=== PATIENT | male | born 1935 | race Caucasian/White ===

== ENCOUNTER 2017-10-22 08:36 | Inpatient (IN) | payer OTHER ==
[~2017-10-22] VITALS: Ht 190.5 cm; Wt 79.6 kg
[2017-10-22] MEDS ORDERED: METOPROLOL SUCC50 M2 PO (08:52)
[2017-10-22] MEDS ORDERED: FUROSEMIDE40 M1 PO (08:52)
[2017-10-22] MEDS ORDERED: SPIRONOLACTONE50 M1 PO (08:52)
[2017-10-22] MEDS ORDERED: PANTOPRAZOLE SO40 M1 PO (08:52)
[2017-10-22] MEDS ORDERED: SIMVASTATIN20 M2 PO (08:52)
--- NOTE | 2017-10-22 08:52 | ED GENERAL ADULT ---
History of Present Illness General Chief Complaint: Low Back Pain/Injury Stated Complaint: BIBA FOR BACK PAIN Source: patient, family, old records Exam Limitations: no limitations, poor historian Allergies Coded Allergies: NO KNOWN ALLERGIES (NONE 10/22/17) Reconcile Medications Furosemide 40 MG TABLET 1 TAB PO DAILY CARDIAC (Reported) Latanoprost (Xalatan) 0.005 % DROPS 1 GTT OPH QPM OPTHALOMIC (Reported) Metoprolol Succinate 50 MG TAB.ER.24H 1 TAB PO DAILY HTN (Reported) Pantoprazole Sodium 40 MG TABLET.DR 1 TAB PO DAILY GERD (Reported) Simvastatin (Simvastatin*) 20 MG TABLET 1 TAB PO QPM CHOLESTEROL (Reported) Spironolactone 50 MG TABLET 1 TAB PO DAILY U (Reported) Triage Note: BIBA FROM HOME FOR INITIAL CALL FOR LIFT ASSIST OUT OF BED. PT THEN C/O 08/03 LOW BACK/FLANK AREA PAIN AND MEDICATED WITH FENTANYL 50MCG BY EMS PAYABLE PROCESSOR. ARRIVES REPORTING SLIGHT IMPROVEMENT IN PAIN. LUNG SOUNDS CLEAR BILATERALLY BUT NOTABLE IRREGULAR APICAL RHYTHM ON ASSESSMENT. DENIES CHEST PAIN OR SOB. DENIES ABDOMINAL PAIN ON PALPATION. -N/V/D. APPEARS PALE. STATES HE NORMALLY AMBULATES AT HOME BY HOLDING ONTO LEIJA AND DOORWAYS. AAOX3 ON ARRIVAL Triage Nurses Notes Reviewed? yes Onset: Abrupt Duration: day(s):, constant Timing: recent history Injury Environment: home No Modifying Factors: none HPI: 82-year-old male comes into the emergency room for further evaluation of back pain. 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 Patient was so weak today that he couldn't get out of bed area he was having increased pain to his back. He has refused nursing care at home in the past. He denies any fever or chest pain shortness of breath vomiting. The family reports that he is usually able to just get up and moved to the chair and go to the bathroom but otherwise he does not do much at home. (Irving Valenzuela) Vital Signs & Intake/Output Vital Signs & Intake/Output Vital Signs Date Time Temp Pulse Resp B/P B/P Pulse O2 O2 Flow FiO2 Mean Ox Delivery Rate 10/22 1350 88 16 104/70 98 Room Air 10/22 1201 97.0 78 16 121/62 99 Room Air 10/22 1127 98.2 10/22 1040 97.0 87 16 119/64 96 Room Air 10/22 0850 96 Room Air 10/22 0843 98.0 112 16 104/57 96 Room Air (Mariangel SINGH,Ari Avery) Past History Travel History Traveled to [place] past 21 day No Medical History Any Pertinent Medical History? see below for history Neurological: NONE EENT: NONE Cardiovascular: AFIB, hypertension Respiratory: NONE Gastrointestinal: GERD Hepatic: LIVER CIRRHOSIS Renal: KIDNEY DYSFUNCTION Musculoskeletal: NONE Psychiatric: NONE Endocrine: NONE Blood Disorders: NONE Cancer(s): NONE Surgical History Surgical History: non-contributory Psychosocial History Who do you live with Spouse What is your primary language Ecuadorean Tobacco Use: Never used Family History Hx Contributory? No (Irving Valenzuela) Review of Systems Review of Systems Constitutional: Reports: see HPI. EENTM: Reports: no symptoms. Respiratory: Reports: no symptoms. Cardiovascular: Reports: no symptoms. GI: Reports: no symptoms. Genitourinary: Reports: no symptoms. Musculoskeletal: Reports: see HPI. Skin: Reports: no symptoms. Neurological/Psychological: Reports: no symptoms. Hematologic/Endocrine: Reports: no symptoms. Immunologic/Allergic: Reports: no symptoms. All Other Systems: Reviewed and Negative (Irving Valenzuela) Physical Exam Physical Exam General Appearance: alert, awake Head: atraumatic Eyes: Bilateral: normal appearance. Ears, Nose, Throat: hearing grossly normal Neck: full range of motion Respiratory: no respiratory distress Cardiovascular: irregularly irregular Gastrointestinal: soft, non-tender, distention Back: decreased range of motion Extremities: pedal edema Neurologic/Psych: awake, alert, oriented x 3 Skin: jaundice, mottled Core Measures ACS in differential dx? Yes CVA/TIA Diagnosis: No Sepsis Present: No Sepsis Focused Exam Completed? No (Irving Valenzuela) Progress Differential Diagnoses I considered the following diagnoses in my evaluation of the patient: Kidney stone, hydronephrosis, muscle strain, compression fracture, Diagnostic Imaging: Viewed by Me: CT Scan. Discussed w/RAD: CT Scan. Radiology Impression: PATIENT: HANANE LEVY PRESENT AGE: 82 PATIENT ACCOUNT NO: [id number] : 37 LOCATION: [facility] ORDERING PHYSICIAN: Irving ANDERSEN SERVICE DATE: 10/22/17 EXAM TYPE: CAT - CT ABD & PELVIS W/O IV CONTRAS EXAMINATION: CT ABDOMEN AND PELVIS WITHOUT CONTRAST CLINICAL INFORMATION: Back pain. Cirrhosis. COMPARISON: Ultrasound guided paracentesis from 08/12/2017, CT of the abdomen and pelvis from 2013 TECHNIQUE: Multidetector volumetric imaging was performed from the superior aspect of the liver through the pubic symphysis. Sagittal and coronal reformatted images were obtained on the technologist's workstation. DLP: 1098 mGy-cm FINDINGS: LUNG BASES: There are fibrotic changes in the lung bases peripherally. No consolidation. There is coronary calcification. The heart size appears normal. No pericardial effusion. LIVER, GALLBLADDER, AND BILIARY TREE: The liver is shrunken and nodular with some hypertrophy of the caudate lobe. This is substantially progressive from 2013. No intrahepatic biliary ductal dilatation. No obvious hepatic mass on these noncontrast images. The gallbladder is unremarkable with no evidence of radiopaque gallstones. There is a large amount of ascites throughout the abdomen and pelvis measuring between 15 and 30 Hounsfield units. PANCREAS: Unremarkable. SPLEEN: Unremarkable. ADRENAL GLANDS: Unremarkable. KIDNEYS AND URETERS: The kidneys are normal in size, shape, and attenuation. No hydronephrosis, hydroureter, or calculi seen. No perinephric stranding. BLADDER: Unremarkable. GASTROINTESTINAL TRACT: There are no dilated loops of small or large bowel. There is a large left inguinal hernia, which contains fat as well as a portion of the proximal sigmoid colon. There appear to be few colonic diverticula none of which appear specifically inflamed. ABDOMINAL WALL: As above there is a large left inguinal hernia, the inferior extent of which is not within the imaged volume. There is a large volume of ascites extending into the hernia as well. LYMPH NODES: No definitive adenopathy is visualized. VASCULAR: The aorta is normal in caliber with moderate calcification. PELVIC VISCERA: Unremarkable. OSSEOUS STRUCTURES: No compression deformities. There is multilevel lumbar spondylosis most notable in the lower lumbar region with a mild dextroconvex scoliosis there are 5 nonrib-bearing lumbar type vertebral bodies. No paraspinal soft tissue abnormalities. No evidence of retroperitoneal hematoma. IMPRESSION: There is a large volume of intra-abdominal and intrapelvic ascites, extending into a sizable left inguinal hernia; the hernia also contains a loop of nondistended sigmoid colon. The liver is shrunken and nodular compatible with the history of cirrhosis. No ductal dilatation. DICTATED BY: Keaton Hernandez MD DATE/TIME DICTATED:10/22/171099 OPERATOR [employer]:MIREYA DATE/TIME TRANSCRIBED:10/22/171099 CONFIDENTIAL, DO NOT COPY WITHOUT APPROPRIATE AUTHORIZATION. <Electronically signed in Other Vendor System> SIGNED BY: Keaton Hernandez MD 10/22/17 1117, PATIENT: HANANE LEVY PRESENT AGE: 82 PATIENT ACCOUNT NO: [id number] : 37 LOCATION: [facility] ORDERING PHYSICIAN: Irving ANDERSEN SERVICE DATE: 10/22/17 EXAM TYPE: RAD - XRY-PORTABLE CHEST XRAY EXAMINATION: XR PORTABLE CHEST CLINICAL INFORMATION: Weakness, elevated white blood cell count COMPARISON: Chest CT 07/21/2017 TECHNIQUE: Portable frontal view of the chest was obtained. FINDINGS: Markedly limited evaluation due to body habitus, lordotic positioning and hypoinflation. Diffusely coarsened interstitial lung markings. No definite focal consolidation, pleural effusion or pneumothorax. Heart size is likely within normal limits. Chronic right clavicular fracture with cerclage wires. No acute osseous abnormality. IMPRESSION: 1. No evidence of acute pulmonary process on this limited examination. 2. Chronic appearing changes of the lungs, better described on the recent chest CT from 07/21/2017 suggesting chronic lung disease. DICTATED BY: Cristiana Schofield MD DATE/TIME DICTATED :10/22/171221 OPERATOR [employer]:MIREYA DATE/TIME TRANSCRIBED:10/22/171221 CONFIDENTIAL, DO NOT COPY WITHOUT APPROPRIATE AUTHORIZATION. < Electronically signed in Other Vendor System> SIGNED BY: Cristiana Schofield MD 1228 Initial ED EKG: rate (94), AFIB (Irving Valenzuela) Plan of Care: Orders Procedure Date/time Status Regular Diet 10/22 D Active Misc Message 10/22 1420 Active ED Holding Orders 10/22 1420 Active Admit to inpatient 10/22 1420 Active Vital Signs 10/22 1420 Active Code Status 10/22 1420 Active Patient Data 10/22 1410 Active Add-on Test (ER Only) 10/22 1207 Active LACTIC ACID 10/22 1206 Complete CULTURE,BODY FLUID 10/22 1149 Active BODY FLUID TOTAL PROTEIN 10/22 1149 Complete BODY FLUID CELL COUNT 10/22 1149 Complete BODY FLUID ALBUMIN 10/22 1149 Complete US-PARACENTESIS 10/22 1135 Active BLOOD CULTURE 10/22 1002 Active DIRECT BILIRUBIN 10/22 0917 Complete AMMONIA LEVEL 10/22 0917 Complete PARTIAL THROMBOPLASTIN TIME 10/22 0906 Complete PROTHROMBIN TIME 10/22 0906 Complete LACTIC ACID 10/22 0906 Complete Intake & Output 10/22 0849 Active TROPONIN LEVEL 10/22 0848 Complete COMPREHENSIVE METABOLIC PANEL 10/22 0848 Complete CBC WITHOUT DIFFERENTIAL 10/22 0848 Complete EKG 10/22 0839 Active Current Medications Sig/Quinton Start time Last Medication Dose Stop Time Status Admin Sodium Chloride 1,000 ML BOLUS ONE 10/22 1445 AC (Normal Saline 0.9%) 10/22 1544 Laboratory Tests 10/22/17 1402: Lactic Acid 3.1 H 10/22/17 1200: Lymphocytes 14, % Normal PMNs 1, Misc Hematology Test 85, Fluid WBC 22 H, Fld Total RBCs Counted 11 H 10/22/17 1149: Fluid Total Protein < 2.0, Fluid Albumin < 1.0 10/22/17 0930: Lactic Acid 3.6 H 10/22/17 0917: Anion Gap 11, Estimated GFR 36 L, BUN/Creatinine Ratio 25.6 H, Glucose 147 H, Calcium 9.1, Total Bilirubin 2.8 H, Direct Bilirubin 0.8 H, AST 45, ALT 29, Alkaline Phosphatase 114, Ammonia 14, Troponin I < 0.01, Total Protein 6.4, Albumin 2.7 L, Globulin 3.7, Albumin/Globulin Ratio 0.7 L, PT 13.9 H, INR 1.33 H, APTT 37, CBC w Diff NO MAN DIFF REQ, RBC 3.29 L, MCV 94.2 H, MCH 31.6 H, RDW 15.5 H, MPV 8.7, Gran % 82.6 H, Lymphocytes % 5.9 L, Monocytes % 10.4 H, Eosinophils % 0.1, Basophils % 1.0, Absolute Granulocytes 10.8 H, Absolute Lymphocytes 0.8 L, Absolute Monocytes 1.4 H, Absolute Eosinophils 0, Absolute Basophils 0.1, PUBS MCHC 33.5 10/22/17 0848: Urine Color Cancelled, Urine Clarity Cancelled, Urine pH Cancelled, Ur Specific [place] Cancelled, Urine Protein Cancelled, Urine Ketones Cancelled, Urine Nitrite Cancelled, Urine Bilirubin Cancelled, Urine Urobilinogen Cancelled, Ur Leukocyte Esterase Cancelled, Ur Microscopic Cancelled, Urine Hemoglobin Cancelled, Urine Glucose Cancelled Microbiology 10/22 1149 BODY FLUID: Body Fluid Culture - RECD 10/22 1149 BODY FLUID: Gram Stain - RECD 10/22 1032 BLOOD: Blood Culture - RECD 10/22 1029 BLOOD: Blood Culture - RECD (Mariangel SINGH,Ari Avery) Departure Departure Disposition: STILL A PATIENT Condition: Stable Clinical Impression Primary Impression: Lactic acidosis Secondary Impressions: Ascites, Intractable pain, Leukocytosis, Multifactorial gait disorder Referrals: Satnam SINGH,Donnell Sandhu (PCP/Family) Departure Forms: Customer Survey General Discharge Information Admission Note Spoke With: Mallory SINGH,Cirilo Documentation of Exam: Documentation of any treatments & extenuating circumstances including Concerns Regarding Discharge (functional status, medication knowledge or non-compliance, living conditions, etc.) that warrant an admission rather than observation: Patient will require IV fluids. IV antibiotics. GI consultation. Physical therapy consultation. Case management consultation. Medically not safe for discharge. High risk. IV pain control. Repeat labs. (Irving Valenzuela) PA/PACKAGE DRIER Co-Sign Statement Statement: ED Attending supervision documentation- [x] I saw and evaluated the patient. I have also reviewed all the pertinent lab results and diagnostic results. I agree with the findings and the plan of care as documented in the PA's/PACKAGE DRIER's documentation. Patient presents for evaluation based on a concern of EMS. EMS was contacted for a lift assist but they felt that the patient required medical evaluation. Other than the complaint of chronic back and arthritis related pain, the patient has no specific complaint. Physical examination reveals jaundice and distended abdomen consistent with his history of cirrhosis. [] I have reviewed the ED Record and agree with the PA's/PACKAGE DRIER's documentation. [] Additions or exceptions (if any) to the PAs/PACKAGE DRIER's note and plan are summarized below: [] (Mariangel SINGH,Ari Avery) Critical Care Note Critical Care Note Critical Care Time: non-applicable (Irving Valenzuela)
[2017-10-22] MEDS ORDERED: XALATAN2.5 ML OPH (08:53)
[2017-10-22 09:27] LABS: ABSOLUTE BASOPHIL COUNT 0.1 /CUMM (0.0-0.2); ABSOLUTE EOSINOPHIL COUNT 0 /CUMM (0.0-0.7); ABSOLUTE GRANULOCYTE CT 10.8 /CUMM (1.4-6.5); ABSOLUTE LYMPH COUNT 0.8 /CUMM (1.2-3.4); ABSOLUTE MONOCYTE COUNT 1.4 /CUMM (0.10-0.60); EOSINOPHIL % 0.1 % (0-5); GRANULOCYTE % 82.6 % (42.2-75.2); MEAN CORPUSCULAR HGB 31.6 PG (27.0-31.0); MEAN CORPUSCULAR HGB CONC 33.5 G/DL (33.0-37.0); MEAN CORPUSCULAR VOLUME 94.2 FL (80.0-94.0); MEAN PLATELET VOLUME 8.7 FL (7.4-10.4); PLATELET COUNT 170 /CUMM (130-400); RBC DISTRIBUTION WIDTH 15.5 % (11.5-14.5); RED BLOOD CELL CT 3.29 /CUMM (4.70-6.10); WHITE BLOOD CELL COUNT 13.1 /CUMM (4.8-10.8)
[2017-10-22 09:37] LABS: PT 13.9 SEC (9.4-12.5); PTT 37 SEC (25-37)
--- NOTE | 2017-10-22 11:17 | CT SCAN REPORT ---
EXAMINATION: CT ABDOMEN AND PELVIS WITHOUT CONTRAST CLINICAL INFORMATION: Back pain. Cirrhosis. COMPARISON: Ultrasound guided paracentesis from 08/12/2017, CT of the abdomen and pelvis from 07/25/2014 TECHNIQUE: Multidetector volumetric imaging was performed from the superior aspect of the liver through the pubic symphysis. Sagittal and coronal reformatted images were obtained on the technologist's workstation. DLP: 1098 mGy-cm FINDINGS: LUNG BASES: There are fibrotic changes in the lung bases peripherally. No consolidation. There is coronary calcification. The heart size appears normal. No pericardial effusion. LIVER, GALLBLADDER, AND BILIARY TREE: The liver is shrunken and nodular with some hypertrophy of the caudate lobe. This is substantially progressive from 2013. No intrahepatic biliary ductal dilatation. No obvious hepatic mass on these noncontrast images. The gallbladder is unremarkable with no evidence of radiopaque gallstones. There is a large amount of ascites throughout the abdomen and pelvis measuring between 15 and 30 Hounsfield units. PANCREAS: Unremarkable. SPLEEN: Unremarkable. ADRENAL GLANDS: Unremarkable. KIDNEYS AND URETERS: The kidneys are normal in size, shape, and attenuation. No hydronephrosis, hydroureter, or calculi seen. No perinephric stranding. BLADDER: Unremarkable. GASTROINTESTINAL TRACT: There are no dilated loops of small or large bowel. There is a large left inguinal hernia, which contains fat as well as a portion of the proximal sigmoid colon. There appear to be few colonic diverticula none of which appear specifically inflamed. ABDOMINAL WALL: As above there is a large left inguinal hernia, the inferior extent of which is not within the imaged volume. There is a large volume of ascites extending into the hernia as well. LYMPH NODES: No definitive adenopathy is visualized. VASCULAR: The aorta is normal in caliber with moderate calcification. PELVIC VISCERA: Unremarkable. OSSEOUS STRUCTURES: No compression deformities. There is multilevel lumbar spondylosis most notable in the lower lumbar region with a mild dextroconvex scoliosis there are 5 nonrib-bearing lumbar type vertebral bodies. No paraspinal soft tissue abnormalities. No evidence of retroperitoneal hematoma. IMPRESSION: There is a large volume of intra-abdominal and intrapelvic ascites, extending into a sizable left inguinal hernia; the hernia also contains a loop of nondistended sigmoid colon. The liver is shrunken and nodular compatible with the history of cirrhosis. No ductal dilatation.
--- NOTE | 2017-10-22 12:28 | RADIOLOGY REPORT ---
EXAMINATION: XR PORTABLE CHEST CLINICAL INFORMATION: Weakness, elevated white blood cell count COMPARISON: Chest CT 07/21/2017 TECHNIQUE: Portable frontal view of the chest was obtained. FINDINGS: Markedly limited evaluation due to body habitus, lordotic positioning and hypoinflation. Diffusely coarsened interstitial lung markings. No definite focal consolidation, pleural effusion or pneumothorax. Heart size is likely within normal limits. Chronic right clavicular fracture with cerclage wires. No acute osseous abnormality. IMPRESSION: 1. No evidence of acute pulmonary process on this limited examination. 2. Chronic appearing changes of the lungs, better described on the recent chest CT from 07/21/2017 suggesting chronic lung disease.
--- NOTE | 2017-10-22 15:14 | Admission Certification ---
Admission Certification Certification Statement - As attending physician, I certify that at the time of - admission, based on clinical presentation, severity of - symptoms, need for further diagnostic testing and - therapeutic interventions, and risk of adverse outcomes - without in-hospital treatment, in my clinical assessment, - this patient requires an acute hospital stay for a minimum - of two nights or longer. I have also considered psychsocial - factors such as support system, advanced age, financial - issues, cognitive issues, and failed out-patient treatments, - past re-admission history, safety of patient, and lack of - compliance as applicable. Specific rationale supporting this admission is: Cirrhosis with jaundice status post large-volume paracentesis.
--- NOTE | 2017-10-22 15:15 | PN- Att Addend ---
Attending Addendum Attending Brief Note 82-year-old male multiple medical problems including prostate cancer status post treatment in the past, A. fib he was on Xarelto no longer on it, recent endoscopy done by Dr. Berger which was negative for varices but found a duodenal ulcer and with cirrhosis presumably secondary to alcohol with a history of ascites and ? CKD with a GFR of 35. He also has chronic back pain and he is here today that appears to be decompensated cirrhosis and a lactic acidosis. He had a therapeutic tap of questionable 7.5 L done in IR today. The SAAG is greater than 1.1 suggestive of portal hypertension and with only 22 white cells, negative for SBP. Hold his diuretics, continue his metoprolol and Protonix. We 'll give him Alps for DVT prophylaxis. We'll give him IV albumin and replace it for every liter taken out on the therapeutic tap. We'll call a formal GI evaluation and trend his lactate closely. Right now I have no obvious source of the lactate of 3.6 which is already coming down to 3.1 and a white count of 13, 000. There is no pneumonia on chest x-ray and no SBP, will get a UA and follow closely.
--- NOTE | 2017-10-22 15:42 | History & Physical ---
Yohan Crespo MD 10/22/17 1541: General Information and HPI MD Statement: I have seen and personally examined HANANE LEVY and documented this H&P. The patient is a 82 year old M who presented with a patient stated chief complaint of back pain. Source of Information: patient, family, old records Exam Limitations: poor historian History of Present Illness: 82 yo man with a PMHx. of HTN ,HLD, borderline DM, paroxysmal A.fib not on AC 2/ 2 GI bleed, Hx. of prostate cancer, alcohol related cirrhosis with recent decompensation 2 months ago after presenting with ascites and undergoing paracentesis in the GI office presented to the emergency room with a complaints of severe back pain, weakness, and inability to get out of bed. The family reports that the patient has substantially declined over the past few months when this diagnosis was first discovered with ascites. He has had significant weight loss, anorexia, and weakness. He has been following with Dr. Ramirez in the office. Patient also report nausea and anorexia with an associated 40 pound weight loss over the last several months. The patient has reportedly vomited multiple times but only nonbilious nonbloody emesis. He uses a walker or cane at his baseline because of unsteady gait but often gets around the house leaning on objects because he prefers to not to use the walking assist devices but has. He report recent lower BRBPR noticed on the toilet paper and bowl without any pain or blood mixed in the stool. He denies hematemesis or melena. The family reports at time his skin looks jaudiced at other times pale. He is having significant non radicular back pain described as aching and not exacerbated by movement or palpation. He takes [id number] mg of tylenol for this pain without improvement. He denied any chest pain, dyspnea, fever, chills, palpitations, dizziness, urine has been darker but no change in bowel habits. In the ED, an abdomen/pelvis CT was performed and showed significant intraabdominal ascites, a large volume paracentesis was done and 7.5 L of clear yellow fluid was aspirated. Ceftriaxone was administered after the paracentesis and the patient was admitted to general medicine. Allergies/Medications Allergies: Coded Allergies: NO KNOWN ALLERGIES (NONE 10/22/17) Home Med list Furosemide 40 MG TABLET 1 TAB PO DAILY CARDIAC (Reported) Latanoprost (Xalatan) 0.005 % DROPS 1 GTT OPH QPM OPTHALOMIC (Reported) Metoprolol Succinate 50 MG TAB.ER.24H 1 TAB PO DAILY HTN (Reported) Pantoprazole Sodium 40 MG TABLET.DR 1 TAB PO DAILY GERD (Reported) Simvastatin (Simvastatin*) 20 MG TABLET 1 TAB PO QPM CHOLESTEROL (Reported) Spironolactone 50 MG TABLET 1 TAB PO DAILY U (Reported) Compliance With Home Meds: FAIR Past History Travel History Traveled to [place] past 21 day No Medical History Neurological: NONE EENT: NONE Cardiovascular: AFIB, hypertension Respiratory: NONE Gastrointestinal: GERD Hepatic: LIVER CIRRHOSIS Renal: KIDNEY DYSFUNCTION Musculoskeletal: NONE Psychiatric: NONE Endocrine: NONE Blood Disorders: NONE Cancer(s): NONE Surgical History Surgical History: non-contributory Review of Systems Review of Systems Constitutional: Reports: see HPI. Exam & Diagnostic Data Last 24 Hrs of Vital Signs/I&O Vital Signs Date Time Temp Pulse Resp B/P B/P Pulse O2 O2 Flow FiO2 Mean Ox Delivery Rate 10/22 2247 98.2 100 19 112/58 100 Room Air 10/22 2116 1125/58 10/22 2035 79 110/68 10/22 1845 98.0 108 19 98/60 100 Room Air 10/22 1637 97.5 88 20 102/62 99 Room Air 10/22 1626 98.3 92 20 109/53 98 Room Air 10/22 1350 88 16 104/70 98 Room Air 10/22 1201 97.0 78 16 121/62 99 Room Air 10/22 1127 98.2 10/22 1040 97.0 87 16 119/64 96 Room Air 10/22 0850 96 Room Air 10/22 0843 98.0 112 16 104/57 96 Room Air Intake & Output 10/23 0800 10/23 0000 10/22 1600 Intake Total 200 Output Total 100 50 Balance -100 150 Intake, IV 200 Output, Urine 100 50 Patient 79.634 kg 95.254 kg Weight Weight Bed scale Estimated Measurement Method Physical Exam General Appearance Alert, Oriented X3, Cooperative, No Acute Distress Cardiovascular Regular Rate, Normal S1, Normal S2, No Murmurs Lungs Clear to Auscultation, Normal Air Movement Abdomen Normal Bowel Sounds, Soft, No Tenderness, No Masses, distended but soft large ascites Extremities No Clubbing, No Cyanosis, No Edema, Normal Pulses Last 24 Hrs of Labs/Natan: Laboratory Tests 10/22/17 2100: Urine Color ORANG H, Urine Clarity CLDY H, Urine pH 5.0, Ur Specific [place] 1.025, Urine Protein 30 H, Urine Ketones TRACE H, Urine Nitrite POS H, Urine Bilirubin POS@ICTO H, Urine Urobilinogen 1.0, Ur Leukocyte Esterase NEG, Ur Microscopic SEDIMENT EXAMINED, Urine RBC 1-3, Urine WBC 3-5 H, Urine Bacteria FEW H, Hyaline Casts 15-25 H, Urine Hemoglobin NEG, Urine Glucose NEG 10/22/17 1903: Lactic Acid 2.3 H 10/22/17 1402: Lactic Acid 3.1 H 10/22/17 1200: Lymphocytes 14, % Normal PMNs 1, Misc Hematology Test 85, Fluid WBC 22 H, Fld Total RBCs Counted 11 H 10/22/17 1149: Fluid Total Protein < 2.0, Fluid Albumin < 1.0 10/22/17 0930: Lactic Acid 3.6 H 10/22/17 0917: Anion Gap 11, Estimated GFR 36 L, BUN/Creatinine Ratio 25.6 H, Glucose 147 H, Calcium 9.1, Total Bilirubin 2.8 H, Direct Bilirubin 0.8 H, AST 45, ALT 29, Alkaline Phosphatase 114, Ammonia 14, Troponin I < 0.01, Total Protein 6.4, Albumin 2.7 L, Globulin 3.7, Albumin/Globulin Ratio 0.7 L, PT 13.9 H, INR 1.33 H, APTT 37, CBC w Diff NO MAN DIFF REQ, RBC 3.29 L, MCV 94.2 H, MCH 31.6 H, RDW 15.5 H, MPV 8.7, Gran % 82.6 H, Lymphocytes % 5.9 L, Monocytes % 10.4 H, Eosinophils % 0.1, Basophils % 1.0, Absolute Granulocytes 10.8 H, Absolute Lymphocytes 0.8 L, Absolute Monocytes 1.4 H, Absolute Eosinophils 0, Absolute Basophils 0.1, PUBS MCHC 33.5 10/22/17 0848: Urine Color Cancelled, Urine Clarity Cancelled, Urine pH Cancelled, Ur Specific [place] Cancelled, Urine Protein Cancelled, Urine Ketones Cancelled, Urine Nitrite Cancelled, Urine Bilirubin Cancelled, Urine Urobilinogen Cancelled, Ur Leukocyte Esterase Cancelled, Ur Microscopic Cancelled, Urine Hemoglobin Cancelled, Urine Glucose Cancelled Microbiology 10/22 1149 BODY FLUID: Body Fluid Culture - RES 10/22 1149 BODY FLUID: Gram Stain - RES 10/22 1032 BLOOD: Blood Culture - RECD 10/22 1029 BLOOD: Blood Culture - RECD Diagnostic Data CXR Results 1. No evidence of acute pulmonary process on this limited examination. 2. Chronic appearing changes of the lungs, better described on the recent chest CT from 07/21/2017 suggesting chronic lung disease. Other Results LUNG BASES: There are fibrotic changes in the lung bases peripherally. No consolidation. There is coronary calcification. The heart size appears normal. No pericardial effusion. LIVER, GALLBLADDER, AND BILIARY TREE: The liver is shrunken and nodular with some hypertrophy of the caudate lobe. This is substantially progressive from 2014. No intrahepatic biliary ductal dilatation. No obvious hepatic mass on these noncontrast images. The gallbladder is unremarkable with no evidence of radiopaque gallstones. There is a large amount of ascites throughout the abdomen and pelvis measuring between 15 and 30 Hounsfield units. Assessment/Plan Assessment: 82 yo man with a PMHx. of HTN ,HLD, borderline DM, paroxysmal A.fib not on AC 2/ 2 GI bleed, Hx. of prostate cancer, alcohol related cirrhosis with recent decompensation 2 months ago after presenting with ascites and undergoing paracentesis in the GI office presented to the emergency room with a complaints of severe back pain, weakness, and inability to get out of bed. Cirrhosis with ascites: Diagnostic and therapeutic paracentesis performed 7.5 L of fluid removed Ascitic fluid analysis not suggestive of spontaneous bacterial peritonitis Monitor off antibiotics Gastroenterology consultation 25% albumin Q8H Trend lactic acid Avoid NSAIDs, duodenal ulcer on EGD, negative for varices Limit tylenol Follow up GI recommendations History off rectal bleeding, radiation proctitis, and duodenoal ulcer Off anticoagulation for atrial fibrillation for the above reasons, increased stroke risk Last alcohol intake 07/25/17 JAIMIE: Continue to hold furosemide, ACEi, and spironolactone Consider nephrology consultation Trial of albumin Avoid NSAIDs, nephrotoxic agents Trend renal function Check urinalysis and urine electrolytes Atrial fibrillation: Continue metoprolol No anticoagulation Weakness: Physical therapy evaluation Heart healthy diet-2gram sodium restriction DVT ppx-lovenox 40mg subcutaneous daily DNR/DNI As Ranked By This Provider Problem List: 1. Cirrhosis 2. Ascites 3. Radiation proctitis 4. Afib 5. ARF (acute renal failure) 6. History of prostate cancer 7. Multifactorial gait disorder Core Measures/Misc (07/11) Acute Coronary Syndrome ACS Diagnosis: No Congestive Heart Failure Congestive Heart Failure Diagnosis No Cerebrovascular Accident CVA/TIA Diagnosis: No VTE (View Protocol) VTE Risk Factors Age>40 No Mechanical VTE Prophylaxis d/t N/A MechProphylax Ordered No VTE Pharm Prophylaxis d/t Medical Contraindication Sepsis (View protocol) Sepsis Present: No SerariddhimitziJefjef 10/22/17 2145: Resident Review Statement Resident Statement: examined this patient, discussed with compensation intern, agreed with compensation intern, discussed with family, reviewed EMR data (avail), discussed with nursing , reviewed images Other Findings: is an 82 yo man with a PMHx. of HTN ,HLD, borderline DM, paroxysmal A.fib not on AC 2/2 GI bleed, Hx. of prostate cancer Hx. of alcohol dependent and alcohol related cirrhosis with recent decompensation about 2 months ago s/p paracentesis at GI office presented to ED with a c/o sever back pain. Patient also report nausea and decrease PO intake over the last few months, he lost about 40Ib over about 6 months, he vomited multiple time clear fluid with no blood, he becomes more weak with difficulty to ambulate, he used a walker or a cane at his baseline 2/2 unsteady gait. He report recent lower GI blood with defecation, he denies any chest pain, SOB, fever, chills, dizziness and there is no change in urinary or bowel habits. His vitals was stable at ED, on examination he looks pale, with generalized icterus, he has tenderness on the lower back, no CVA tenderness, he has B/L LE +2 edema, his pulse is irregular. At ED abdomen/pelvis CT showed large volume intraabdominal ascites, paracentesis was done, 7.5 L of clear yellow fluid was aspirated, SAAG >1, MELD score: 19 -Will admit the patient to general medicine floor, will give 25% albumin (about 8g for every liter aspirated), his lactate is mildly elevated will give one bag of IV NS, please continue follow up lactate level till normalized. will hold diuretics, will continue Metoprolo, GI consult, will hold on antibiotic, doesn't meet the criteria for SBP, DVT ppx. ALPS, DNR/DNI Umm SINGH,Tierra 10/23/17 1414: Attending MD Review Statement Attending Statement Attending MD Statement: examined this patient, discuss w/resident/PA/TOILE[employer] PRODUCTS MOLDER, agreed w/resident/PA/TOILE[employer]ODU[employer] MOLDER, discussed with family, reviewed EMR data (avail), discussed with nursing, reviewed images Attending Assessment/Plan: See medical brief addendum note dated 10/22/17
--- NOTE | 2017-10-22 15:54 | ULTRASOUND REPORT ---
CLINICAL HISTORY: This patient is a 82 years old Male with ascites found on physical exam, who is referred to Interventional Radiology for ultrasound-guided paracentesis. PROCEDURE: Ultrasound-guided paracentesis. PHYSICIANS: Dr. Cristiana Schofield (attending). MEDICATIONS: 10 mL of 1% lidocaine SQ. COMPLICATIONS: None ESTIMATED BLOOD LOSS: <5 mL SPECIMENS: Ascites IMPLANT: None. SITE MARKING: As part of the preprocedure verification policy, a site marking procedure was initiated. Due to the nature the procedure, the insertion site could not be predetermined thus invoking the policy of exemption to site laterality and marking. Insertion site marking was performed in the procedure room in conjunction with imaging confirmation. PROCEDURE NOTE: Informed consent was obtained from the patient prior to the procedure. During this process, the procedure and potential alternatives were explained along with the intended outcome and benefits. The risks of the procedure, including the possibility of an unsuccessful procedure, as well as the risk of not doing the procedure, were discussed. The patient was given the opportunity to ask questions regarding the procedure and appeared competent to make decisions. A signed consent form documenting this discussion was placed in the medical record. A time-out procedure was performed. Appropriate preprocedure medical history and imaging studies were reviewed. The patient was brought to the ultrasound room and placed in the supine position. A time-out procedure was performed. Ultrasound images of the abdomen were obtained to localize a large collection of ascites. Images were permanently saved to the record. An area of the right lower quadrant was prepped and draped in the standard sterile fashion. All elements of maximal sterile barrier technique followed including use of cap, mask, sterile gown, sterile gloves, a sterile full body drape and hand hygiene. Also followed skin preparation with 2% chlorhexidine for cutaneous antisepsis, and sterile ultrasound preparation with sterile gel and probe cover when applicable. 10 mL of 1% lidocaine was used to obtain local anesthesia of the skin and deeper tissues. A standard small-bore needle was introduced to sample fluid and demonstrated a safe access route. There was no evidence of traversing adjacent organs or vascular structures. A 6-Fr [id number] closed needle/catheter system was utilized for access. 7.5 L of clear yellow fluid was aspirated before drainage ceased. The catheter was removed and sterile dressing applied. The patient tolerated the procedure well without evidence of complications. FINDINGS: Large simple abdominal ascites as detailed above. IMPRESSION: Successful ultrasound-guided therapeutic and diagnostic paracentesis. PLAN: The patient was stable after the procedure. The patient will be transferred back to the emergency room.
--- NOTE | 2017-10-22 18:08 | Cons- Gastroenterology ---
General Information and HPI Consulting Request Date of Consult: 10/22/17 Requested By: Tierra Salomon MD Reason for Consult: I was called by the hospitalist service to assess cirrhosis, ascites, and renal insufficiency, in a patient presenting with low back pain. Source of Information: patient, old records Exam Limitations: fair historian History of Present Illness: 82-year-old male, followed by Dr. Hay for primary care, Dr. Salomon for cardiology, Dr. Edson Garcia for RT, & Dr. Duron, for urology, with a history of hypertension, hyperlipidemia, borderline diabetic, glaucoma, ex-15 pack year cigarette smoker stopped 1989, and history of alcohol abuse, consisting of > 3 drinks of vodka & 7-Up daily. He previously drank more years ago. He claimed to have last drank EtOH 07/25/17. Cirrhosis became evident when he presented with ascites in 07/2017. 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 He developed paroxysmal atrial fibrillation since. He was put on Xarelto by cardiology 08/25/16 Two days later, the patient developed painless BRBPR after defecation of brown stool, with bright red blood on the toilet paper, without any spontaneous lower GI bleeding or melena. Xarelto was held by cardiology 09/02/16, after the rectal bleeding occurred. Please note, 07/06/14: prostate biopsy- prostate adenocarcinoma, Rosalia 7. The patient was treated with external-beam radiation for 45 courses, completed 11/14/14. There was a questionable history of hemorrhoids. The patient did have loose stool on Fenofibrate, which was stopped 08/25/16, and the loose stools resolved. He did not use any NSAIDs or aspirin. He had no neurologic complaints. Please note, the patient has a past history of duodenal ulcer. 06/14/08: CT scan of the abdomen and pelvis with contrast- questionable gastric outlet obstruction. 07/03/2008: EGD- large friable 2 cm2 duodenal ulcer in the bulb, without any clot or visible vessel, with scarring of the bulb, patent pylorus, no gastric outlet obstruction, & *HP-negative gastritis on biopsy. The patient had been maintained on Omeprazole since, but may not have been fully compliant with this. 09/11/08: Followup EGD plus baseline colonoscopy to the cecum- healed duodenal ulcer, tiny hiatal hernia, Z-line at 41 cm, patent pylorus, no gastric outlet obstruction; moderate pandiverticulosis coli, L > R, removal of 4 mm sessile polyp base of appendix, showing focal adenoma. The patient was non- compliant with a followup surveillance colonoscopy advised for 5 years later, namely 08/2013. The patient had never been transfused. 09/10/16: Colonoscopy to the TI with multiple biopsies and multiple polypectomies (done at different sites)- extensive pandiverticulosis coli, L > R , fairly extensive RT proctitis, with oozing telangiectasia's to 10 cm (direct biopsies deferred), and removal of 9 benign sessile polyps, ranging in size from 5 mm - 1 cm (7 TA & 2 hyperplastic). A follow-up colonoscopy was advised in 3 years (i.e.- 08/2019), assuming it is warranted then by the risk:benefit ratio, keeping in mind the patient's advanced age and numerous comorbidities. The patient was put on Canasa suppository 1 g Qhs post colonoscopy, which worked well, and the patient stopped it on his own 4 months later, as he was asymptomatic. *Having stated that, Xarelto was resumed by cardiology on 10/05/16 , but stopped by them 10/10/16, as the patient had recurrent rectal bleeding, despite the Canasa. 10/13/16: WBC 6.1, H/H 11.4/34.2, MCV 93.6, PLT 157. 11/05/16: K+ 4.3, Na 139, *BUN/Cr 16/0.9, GFR > 60. Anticoagulation therapy was currently on hold as per cardiology, regarding the rectal bleeding from his RT proctitis. The patient & his , Blossom, were aware that the risk of CVA off of anti-coagulation therapy has to be balanced with the risk of GI bleeding. I deferred to cardiology regarding other options of anticoagulation, such as the shorter acting Eliquis. If anticoagulation therapy was resumed, as the patient has had breakthrough rectal bleeding on Canasa suppositories when previously on Xarelto, other options could include local installation of formalin to treat the RT proctitis vs. mucosal stripping of the rectum, although the latter was a somewhat extreme measure. The patient's 07/03/08: duodenal ulcer was remote. *The patient was subsequently found to have a large recurrent DU via 10/12/17: EGD (see below), adding to the reasons not to resume A/C therapy. There were no varices or portal gastropathy then. Mr. Mark Anthony Hodges returned to the office 09/10/17, accompanied by his Blossom, previously here 03/12/17. He had numerous tests done since last here and was found to have cirrhosis, secondary to alcohol abuse. 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 He claimed he last drank EtOH "07/25/17." The patient saw Dr. Salomon 07/27/17 and was reported to be yellow, prompting the liver workup. 07/30/17: lipase 5, PT 12.6, INR 1.2, WBC 7.0, H/H 12.2/36.3, MCV 96.9, RDW 15.4 , PLT 194, glucose 138, BUN/Cr 33/1.29, GFR 52, Na 141, K 4.3, HCO3 24, AG 13, Ca 8.6, alb 2.9, glob 3.1, TBil 1.9, alk phos 130, AST 43, ALT 21, borderline T3RU 37, otherwise nl TFT with TSH 3.53, *MELD 13. : RUQ sono- Cirrhotic liver, no hepatoma, moderate to large ascites, CBD not seen, normal GB. 08/12/17: *Large volume tap by IR- 7.5L removed post 50g SPA, 29 RBC, 208 WBC, 1 % PMN (absolute # PMN = 2), *no SBP, BF prot < 2.0, BF alb < 1.0, high SAAG > 2.0, g stain , C&S- neg, cytology neg. 08/12/17: *Hep A Ab, Hep Bs Ag, Hep B core Ab, Hep C Ab- all neg; TRACEE- neg 1:40, AMA < 20, AFP 3.7, Fe 84, TIBC 233, Fe sat 36%, ferritin 305 *Lasix 40 mg daily had been prescribed PMD. *I added Aldactone 50 mg daily. He remained on Metopolol 50 mg daily, per cardiology. The cirrhosis was discussed with the patient and his , Blossom, in detail . This undoubtedly was from his alcohol abuse, which he allegedly stopped 07/25/17. Extensive serologies were negative. He was made aware that he needed periodic screening to rule out hepatoma. Because of his advanced age and recent alcohol abuse, he did not appear to be a candidate for liver transplant at this point. His last 07/30/17: MELD was relatively stable at 13. *At the patient's last GI OF of 09/10/17, I advised him to have an EGD to rule out varices and if present, would switch his Metoprolol to a non-selective beta paul. 10/08/17: random glu 119, *BUN/Cr 54/1.8, GFR 36 (*new), Na 141, K 4.5, HCO3 23, AG 13, Ca 9.1, alb 2.7, glob 4.0, TBil 2.3, DBil 1.0, alk phos 118, AST 47, ALT 23, Hep Bs Ab- neg (*not immune) *Lasix 40 mg daily, Aldactone 50 mg daily, & Benazepril 40 mg daily were all held after noting the 10/08/17: labs, due to low GFR. *The patient and his were repeatedly told to have the patient follow-up with his PMD and/or a index editor for his low GFR, but the patient never did so. 10/12/17: EGD w/biopsy to D2- Impression: 1. *No esophageal or gastric varices. *No portal gastropathy. 2. 2 cm sliding hernia pouch, from 40-42 cm. Z line at 40 cm. 3. *2 cm well circumscribed, clean-based duodenal ulcer in the bulb, without any active bleeding, with friable edges. There was no clot or visible vessel. Direct biopsies of the duodenal ulcer were deferred, as were therapeutics. 4. Random gastric biopsies: (Specimen A- antrum, Specimen B- fundus; rule out H. pylori), in view of large duodenal bulb ulcer. A. GASTRIC ANTRUM BIOPSY: MINIMAL TO MILD CHRONIC INFLAMMATION. *GIEMSA STAIN IS NEGATIVE FOR HELICOBACTER-TYPE STRUCTURES. NEGATIVE FOR EVIDENCE OF MALIGNANCY. B. GASTRIC FUNDUS BIOPSY: MINIMAL CHRONIC INFLAMMATION. *GIEMSA STAIN IS NEGATIVE FOR HELICOBACTER-TYPE STRUCTURES. NEGATIVE FOR EVIDENCE OF MALIGNANCY. Dictated by: Nickolas Jimenez MD, I called the pt 10/15/17 at 5:35 P.M. at [phone], & spoke with him & his , *Blossom, regarding the benign HP-neg gastric bxs & his 10/15/17: labs. The patient was told in no uncertain terms to refrain from any aspirin or NSAIDs (which he was not taking). He allegedly last drink alcohol 07/25/17. He was a remote cigarette smoker. *He was told to increase Protonix (rxd postop) to 40 mg po BID, 1/2 hour before breakfast & supper. *Advise repeat EGD by the end of 2017, to reassess the huge duodenal bulb ulcer, and if it persists, will need direct biopsies and possible EUS (discussed with Mariza at my office, postop). * Lasix 40 mg daily, Aldactone 50 mg daily, & Benazepril 40 mg daily all recently held, due to low GFR. *They were not to be resumed, as repeat labs 10/15/17: * BUN/Cr 55/2.0, GFR 32, glucose 127, Na 142, K 4.3, HCO3 23, AG 13,Ca 8.9. I again told the pt & his to call their PMD & a index editor to workup his kidneys further. *Follow up with PMD for both Hep A and B vaccinations. *The patient was having vague aches and pains which appeared to be DJD in nature. The patient's was asking for analgesics, and I directed her to the patient' s PMD. *Limit Tylenol to < 2g daily. *Consideration for Ultram, dosing not to exceed 50 mg po BID as needed, with underlying cirrhosis. The patient and his , Blossom, were aware of the severe nature of the patient's illness with his underlying EtOH cirrhosis. Because of his advanced age and recent alcohol abuse , he did not appear to be a candidate for liver transplant at this point. *Agree with no further A/C tx re: hx PAF, with large DU, history of radiation proctitis , past history of lower GI bleeding, etc., along with the fact that he was in NSR as of 09/10/17. Limit Tylenol to < 2 g daily. Avoid hepatotoxins. 2 g Na+ diet. I advised an annual flu shot, which the patient did not want. I also told him he should have a Pneumovax if never obtained. I advised a follow-up GI visit in 3 months. He will need a repeat AFP and RUQ sono every 6 months for HCC surveillance, next due in 01/2018. One might consider follow-up surveillance colonoscopy in 08/2019 regarding his colon adenomas, but the overall risk: benefit ratio will have to be taken into account at that point, keeping in mind his advanced age and numerous comorbidities. He was advised to continue fiber supplements for his diverticular disease. He will follow-up with his numerous physicians. The patient's , Blossom, called me earlier this a.m, 10/22/17, stating that the patient had low back pain "10 out of 10" & could not get out of bed. He could not make it to his PMD regarding his low GFR. He was given Fentanyl 50 mcg by EMS [facility] & sent to the [place] [facility], where he arrived 10/22/17 at 8:36 a.m. Upon arrival, BP 104/57, P 112, R 16, T 98, O2 sat RA 96%. He was given 1L of NS in the ER, along with Dilaudid, Zofran, & empiric IV Ceftriaxone & IV Flagyl. The patient had a large volume ascitic tap by IR on admission, with 7.5L of clear, yellow ascites removed (*neg SBP, high SAAG, low protein), post 37.5g IV SPA. The patient claimed his low back pain just above the tailbone was subacute on chronic. He found it difficult to ambulate for the past day [facility]. He had diffuse weakness, but had no signs or symptoms of cord compression. *Please note, 03/23/17: PSA < 0.00. He denied taking any aspirin or NSAIDs, but was taking Tylenol for his back pain. He was on Protonix 40 mg po BID as an outpt for his DU. He denied any nausea or vomiting (aside from dry heaves post Dilaudid for his back). He denied any odynophagia, dysphagia, hematemesis, melena, abdominal pain, CP, SOB, early satiety, diarrhea, constipation, obstipation, or tenesmus. He had occasional scant BRBPR on the toilet paper after defecation, which he attributed to his RT proctitis. He had stopped his Canasa suppositories a while ago, which previously helped these sx. He denied any fevers, chills, jaundice, dark urine, light stool, pruritus, confusion, symptoms of UTI, or URI. He had lost weight, exact amount unknown. Some of this was attributed to volume loss from abdominal taps, as his ascites related to his diuretics were held, due to low GFR. His appetite was fair & he had generalized weakness. Aside from a paternal female cousin having Crohn's disease, there was no family history of any additional GI disease, GI Ca, or inherited liver disease. 10/22/17: Admission labs- WBC 13.1 (83% gran/11 gran Ab), H/H 10.4/31, MCV 94.2, RDW 15.5, PLT 170, PT 13.9,INR 1.33, PTT 37, glucose 147, BUN/Cr 46/1.8, GFR 36, Na 141, K 4.6, HCO3 23, AG 11, *lactate 3.6-> 3.1, Ca 9.1, alb 2.7, glob 3.7, TBil 2.8, DBil 0.8, alk phos 114, AST 45, ALT 29, NH3 14, troponin < 0.01. 10/22/17: *Admission MELD 20. 10/22/17: 11 RBC, 22 WBC (1 PMN/14L/85 Meso-histio), *absolute # PMN 0.22 (*no SBP), BF protein < 2.0, BF albumin < 1.0, SAAG > 1.7 (*high SAAG, low prot), 10/22/17: BC x 2- pending. 10/22/17: Ascitic gram stain- no WBC, no organisms; ascitic culture- pending. 10/22/17: EKG- afib @ 94, low voltage throughout, borderline diffuse T wave abnormalities throughout, borderline prolonged QT interval. 10/22/17: CT ABDOMEN AND PELVIS WITHOUT IV CONTRAST (low GFR)- There is a large volume of intra-abdominal and intrapelvic ascites, extending into a sizable left inguinal hernia; the hernia also contains fat & a loop of nondistended sigmoid colon. No bowel obstruction. Few colonic diverticula without diverticulitis. The liver is shrunken and nodular, compatible with the history of cirrhosis. No obvious HCC or pancreatic lesion (within the limits of a non-IV contrast study). Normal GB. No ductal dilatation. Calcified aorta without AAA. Fibrotic changes at lung bases peripherally. No infiltrate. Coronary artery calcification. No retroperitoneal bleed. Lower lumbar dextroscoliosis. 10/22/17: XR PORTABLE CHEST- 1. No evidence of acute pulmonary process on this limited examination. Chronic right clavicular fracture. 2. Chronic appearing changes of the lungs, better described on the recent chest CT from 07/21/2017 suggesting chronic lung disease. 10/22/17: US-PARACENTESIS (by IR)- 7.5 L of clear yellow fluid was aspirated before drainage ceased. Allergies/Medications Allergies: Coded Allergies: NO KNOWN ALLERGIES (NONE 10/22/17) Home Med List: Furosemide 40 MG TABLET 1 TAB PO DAILY CARDIAC (Reported) Latanoprost (Xalatan) 0.005 % DROPS 1 GTT OPH QPM OPTHALOMIC (Reported) Metoprolol Succinate 50 MG TAB.ER.24H 1 TAB PO DAILY HTN (Reported) Pantoprazole Sodium 40 MG TABLET.DR 1 TAB PO DAILY GERD (Reported) Simvastatin (Simvastatin*) 20 MG TABLET 1 TAB PO QPM CHOLESTEROL (Reported) Spironolactone 50 MG TABLET 1 TAB PO DAILY U (Reported) Current Medications: Current Medications Sig/Quinton Start time Last Medication Dose Route Stop Time Status Admin Acetaminophen 650 MG Q8P PRN 10/22 1545 AC PO Albumin Human 25 GM Q8 10/22 2200 AC 10/22 IV 2114 Albumin Human 25 GM ONCE ONE 10/22 1630 DC 10/22 IV 10/22 1631 1718 Albumin Human 12.5 GM ONCE ONE 10/22 1600 DC 10/22 IV 10/22 1601 1627 Ceftriaxone Sodium 0 .STK-MED ONE 10/22 1559 DC .ROUTE Ceftriaxone Sodium 1,000 MG ONCE ONE 10/22 1415 DC 10/22 IV 10/22 1416 1604 Hydromorphone HCl 0.5 MG Q8P PRN 10/22 1600 AC IV Hydromorphone HCl 0.5 MG ONCE ONE 10/22 1045 DC 10/22 IV 10/22 1046 1041 Hydromorphone HCl 0 .STK-MED ONE 10/22 1039 DC .ROUTE Mesalamine 1,000 MG AT BEDTIME 10/22 2200 AC PA Metoprolol Succinate 50 MG DAILY 10/22 1606 AC 10/22 PO 2116 Metronidazole 500 MG ONCE ONE 10/22 1415 DC N/A 1 UNIT IV 10/22 1514 Ondansetron HCl 4 MG Q6P PRN 10/22 1600 AC IV Ondansetron HCl 4 MG ONCE ONE 10/22 1215 DC 10/22 IV 10/22 1216 1210 Ondansetron HCl 0 .STK-MED ONE 10/22 1200 DC .ROUTE Pantoprazole Sodium 0 .STK-MED ONE 10/22 1702 DC IV Pantoprazole Sodium 40 MG DAILY 10/22 1606 AC 10/22 IV 1718 Sodium Chloride 1,000 ML Q13H 10/22 1630 DC 10/22 IV 10/23 0529 1842 Sodium Chloride 1,000 ML BOLUS ONE 10/22 1445 DC 10/22 IV 10/22 1544 1604 Sodium Chloride 1,000 ML BOLUS ONE 10/22 1015 DC 10/22 IV 10/22 1114 1031 Past History Travel History Traveled to [place] past 21 day No Medical History Blood Transfusion Hx: No Neurological: NONE EENT: NONE Cardiovascular: AFIB, hypertension, hyperlipidemia Respiratory: NONE Gastrointestinal: peptic ulcer disease (DU), divertic coli, RT proctitis, Hx colon adenoma, LIH Hepatic: LIVER CIRRHOSIS (EtOH), Hx ascites (high SAAG, low protein) Renal: KIDNEY DYSFUNCTION Musculoskeletal: chronic back pain, degen joint disease Psychiatric: previous EWtOH abuse Endocrine: NONE Blood Disorders: NONE Cancer(s): prostate cancer 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 , Age 60+; Cause: Myocardial infarct. MOTHER, , Age 60+; Cause: Unknown cause of morbidity or mortality. PATERNAL FEMALE COUSIN (Crohn's disease). Psychosocial History Where Do You Live? Home Who Do You Live With? spouse (Blossom) Services at Home: None Primary Language: Nepali Smoking Status: Former Smoker ETOH Use: alcoholic (D/C 07/25/17) Illicit Drug Use: denies illicit drug use Living Will? yes Power of Project Manager Interior Design/HCP? yes Name of POA/HCP: pt's , Blossom Hodges Other Social History: . Lives with , Blossom. Alcoholic x years, D/C 07/25/17. Ex-15 pk yr cigarette smoker, D/C 1989. No illicit drugs. 2 sons & 1 dtr- [employer]. 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 Uses cane. Functional Ability ADLs Independent: eating. Needs Assist: dressing, toileting, bathing. Ambulation: cane (unable to walk 1d [facility]) IADLs Independent: telephone. Needs Assist: shopping, housework, finances, food prep, transportation, medication admin. 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 Review of Systems Constitutional: Reports: weakness, unexplained weight loss (partially from abd taps). Denies: chills, diaphoresis, fever, malaise. EENTM: Reports: icterus. Denies: blurred vision, double vision, visual changes, eye pain, eye drainage, eye tearing, ear discharge, ear pain, ear redness, hearing changes, nasal congestion, epistaxis, nasal pain, throat pain, throat swelling, mouth pain, tooth pain. Cardiovascular: Reports: peripheral edema. Denies: chest pain, edema, orthopena, palpitations, syncope. Respiratory: Denies: cough, hemoptysis, orthopnea, short of breath, sputum production, stridor, wheezing. GI: Reports: bloody stool (RT proctitis). Denies: abdominal pain, bloating, constipation, diarrhea, distention, bowel incontinence, melena, nausea, changes in stool, vomiting, steatorrhea. Genitourinary: Denies: discharge, dysuria, frequency, hematuria, hesitation, nocturia, pain, urgency. Musculoskeletal: Reports: back pain. Denies: gout, joint pain, joint swelling, muscle pain, muscle stiffness, neck pain. Skin: Denies: cysts, change in skin color, change in hair/nails, dryness, erythema, jaundice, lesions, lymphangitis, lumps, moles, rash. Neurological/Psychological: Denies: anxiety, ataxia, cognitive dysfunction, confusion, depressed, dementia, emotional problems, headache, numbness, paresthesia, pre-existing deficit, petit mal seizures, tingling, tremors, tonic-clonic seizures, unable to move lower ext , unable to move upper ext, weakness, other. Hematologic/Endocrine: Denies: bruising, bleeding, polyuria, polydipsia. Immunologic/Allergic: Denies: see HPI, splenectomy, HIV/AIDS, lymphadenopathy. All Other Systems: Reviewed and Negative Exam & Diagnostic Data Vital Signs and I&O Vital Signs Date Time Temp Pulse Resp B/P B/P Pulse O2 O2 Flow FiO2 Mean Ox Delivery Rate 10/22 1637 97.5 88 20 102/62 99 Room Air 10/22 1626 98.3 92 20 109/53 98 Room Air 10/22 1350 88 16 104/70 98 Room Air 10/22 1201 97.0 78 16 121/62 99 Room Air 10/22 1127 98.2 10/22 1040 97.0 87 16 119/64 96 Room Air 10/22 0850 96 Room Air 10/22 0843 98.0 112 16 104/57 96 Room Air Intake & Output 10/22 1600 10/22 0400 10/21 1600 10/21 0400 10/20 1600 10/20 0400 Intake Total Output Total Balance Patient 210 lb Weight Weight Estimated Measurement Method Physical Exam: Well-developed, chronically ill appearing, somewhat malnourished, elderly male, with some muscle wasting, in no apparent distress. Sclera mildly icteric. Conjunctiva pink. Oropharynx clear. Poor dentition. No oral thrush. No aphthous ulcers. There is no adenopathy, thyromegaly, or JVD. No peripheral stigmata of inflammatory bowel disease on exam. Scant gynecomastia B/L, without masses or D /C, faint spider anterior chest wall, & scant ascites (post abd tap). No CVA tenderness. No definite point spine tenderness. Dextroscoliosis lower L-spine. Deformed right clavicle, post old fx. Lungs: clear to A&P, with slight decreased BS at the bases B/L. Heart exam: irregularly irregular rate rhythm, S1 and S2, without any murmur. Abdominal exam: normal bowel sounds, softer belly (post tap) , nontender, without guarding or rebound. Large partially reducible non-tender left scrotal mass/LIH, otherwise, no mass. Liver approximately 9 cm by percussion. No splenomegaly. Negative Devine sign.*Mild fluid fluid shift (post tap). No pulsatile mass. No epigastric bruit. Digital rectal exam: deferred by patient. [Previous digital rectal exam 09/04/16: light brown stool, OB-negative, without fresh blood, normal sphincter tone, smooth mildly enlarged prostate without nodule, no mass, no external hemorrhoid or fissure. (it was also done at the 09/10/16: colonoscopy)]. Extremities: without cyanosis or clubbing. < 1+ pedal edema of the LE B/L. Right knee scar. No palpable cords. + DJD. No rash. Distal pulses 1+ bilaterally. DTRs 1+ bilaterally. No palmar erythema. No Dupuytren's contractures. Alert and oriented x 3. Scant tremor. No asterixis. No definite signs of cord compression on limited neurologic exam. Motor 4/5 B/L. Results Pertinent Lab Results: Laboratory Tests 10/22 10/22 10/22 10/22 10/22 1903 1402 1200 1149 0930 Chemistry Lactic Acid (0.7 - 2.1 mmol/L) Pending 3.1 H 3.6 H Hematology Lymphocytes (%) 14 % Normal PMNs (%) 1 Misc Hematology Test (%) 85 Other Body Source Fluid WBC (0 - 5 /CUMM) 22 H Fld Total RBCs Counted (0 /CUMM) 11 H Fluid Total Protein (g/dL) < 2.0 Fluid Albumin (g/dL) < 1.0 10/22 10/22 0917 0848 Chemistry Sodium (137 - 145 mmol/L) 141 Potassium (3.5 - 5.1 mmol/L) 4.6 Chloride (98 - 107 mmol/L) 108 H Carbon Dioxide (22 - 30 mmol/L) 23 Anion Gap (5 - 16) 11 BUN (9 - 20 mg/dL) 46 H Creatinine (0.7 - 1.2 mg/dL) 1.8 H Estimated GFR (>60 ml/min) 36 L BUN/Creatinine Ratio (7 - 25 %) 25.6 H Glucose (65 - 99 mg/dL) 147 H Calcium (8.4 - 10.2 mg/dL) 9.1 Total Bilirubin (0.2 - 1.3 mg/dL) 2.8 H Direct Bilirubin (< 0.4 mg/dL) 0.8 H AST (17 - 59 U/L) 45 ALT (21 - 72 U/L) 29 Alkaline Phosphatase (< 127 U/L) 114 Ammonia (9 - 30 umol/L) 14 Troponin I (<0.11 ng/ml) < 0.01 Total Protein (6.3 - 8.2 g/dL) 6.4 Albumin (3.5 - 5.0 g/dL) 2.7 L Globulin (1.9 - 4.2 gm/dL) 3.7 Albumin/Globulin Ratio (1.1 - 2.2 %) 0.7 L Coagulation PT (9.4 - 12.5 SEC) 13.9 H INR (0.90 - 1.17) 1.33 H APTT (25 - 37 SEC) 37 Hematology CBC w Diff NO MAN DIFF REQ WBC (4.8 - 10.8 /CUMM) 13.1 H RBC (4.70 - 6.10 /CUMM) 3.29 L Hgb (14.0 - 18.0 G/DL) 10.4 L Hct (42 - 52 %) 31.0 L MCV (80.0 - 94.0 FL) 94.2 H MCH (27.0 - 31.0 PG) 31.6 H RDW (11.5 - 14.5 %) 15.5 H Plt Count (130 - 400 /CUMM) 170 MPV (7.4 - 10.4 FL) 8.7 Gran % (42.2 - 75.2 %) 82.6 H Lymphocytes % (20.5 - 51.1 %) 5.9 L Monocytes % (1.7 - 9.3 %) 10.4 H Eosinophils % (0 - 5 %) 0.1 Basophils % (0.0 - 2.0 %) 1.0 Absolute Granulocytes (1.4 - 6.5 /CUMM) 10.8 H Absolute Lymphocytes (1.2 - 3.4 /CUMM) 0.8 L Absolute Monocytes (0.10 - 0.60 /CUMM) 1.4 H Absolute Eosinophils (0.0 - 0.7 /CUMM) 0 Absolute Basophils (0.0 - 0.2 /CUMM) 0.1 PUBS MCHC (33.0 - 37.0 G/DL) 33.5 Urines Urine Color Cancelled Urine Clarity Cancelled Urine pH Cancelled Ur Specific [place] Cancelled Urine Protein Cancelled Urine Ketones Cancelled Urine Nitrite Cancelled Urine Bilirubin Cancelled Urine Urobilinogen Cancelled Ur Leukocyte Esterase Cancelled Ur Microscopic Cancelled Urine Hemoglobin Cancelled Urine Glucose Cancelled Imaging/Other Studies: 10/22/17: EKG- afib @ 94, low voltage throughout, borderline diffuse T wave abnormalities throughout, borderline prolonged QT interval. 10/22/17: CT ABDOMEN AND PELVIS WITHOUT IV CONTRAST (low GFR)- There is a large volume of intra-abdominal and intrapelvic ascites, extending into a sizable left inguinal hernia; the hernia also contains fat & a loop of nondistended sigmoid colon. No bowel obstruction. Few colonic diverticula without diverticulitis. The liver is shrunken and nodular, compatible with the history of cirrhosis. No obvious HCC or pancreatic lesion (within the limits of a non-IV contrast study). Normal GB. No ductal dilatation. Calcified aorta without AAA. Fibrotic changes at lung bases peripherally. No infiltrate. Coronary artery calcification. No retroperitoneal bleed. Lower lumbar dextroscoliosis. 10/22/17: XR PORTABLE CHEST- 1. No evidence of acute pulmonary process on this limited examination. Chronic right clavicular fracture. 2. Chronic appearing changes of the lungs, better described on the recent chest CT from 07/21/2017 suggesting chronic lung disease. 10/22/17: US-PARACENTESIS (by IR)- 7.5 L of clear yellow fluid was aspirated before drainage ceased. Assessment/Plan Assessment/Recommendations: 82-year-old male, followed by Dr. Hay for primary care, Dr. Salomon for cardiology, Dr. Edson Garcia for RT, & Dr. Duron, for urology, with a history of hypertension, hyperlipidemia, borderline diabetic, glaucoma, ex-15 pack year cigarette smoker stopped 1989, and history of alcohol abuse, consisting of > 3 drinks of vodka & 7-Up daily. He previously drank more years ago. He claimed to have last drank EtOH 07/25/17. Cirrhosis became evident when he presented with ascites in 07/2017. 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 He developed paroxysmal atrial fibrillation since. He was put on Xarelto by cardiology 08/25/16 Two days later, the patient developed painless BRBPR after defecation of brown stool, with bright red blood on the toilet paper, without any spontaneous lower GI bleeding or melena. Xarelto was held by cardiology 09/02/16, after the rectal bleeding occurred. Please note, 07/06/14: prostate biopsy- prostate adenocarcinoma, Toy 7. The patient was treated with external-beam radiation for 45 courses, completed 11/14/14. There was a questionable history of hemorrhoids. The patient did have loose stool on Fenofibrate, which was stopped 08/25/16, and the loose stools resolved. He did not use any NSAIDs or aspirin. He had no neurologic complaints. Please note, the patient has a past history of duodenal ulcer. 06/14/08: CT scan of the abdomen and pelvis with contrast- questionable gastric outlet obstruction. 07/03/2008: EGD- large friable 2 cm2 duodenal ulcer in the bulb, without any clot or visible vessel, with scarring of the bulb, patent pylorus, no gastric outlet obstruction, & *HP-negative gastritis on biopsy. The patient had been maintained on Omeprazole since, but may not have been fully compliant with this. 09/11/08: Followup EGD plus baseline colonoscopy to the cecum- healed duodenal ulcer, tiny hiatal hernia, Z-line at 41 cm, patent pylorus, no gastric outlet obstruction; moderate pandiverticulosis coli, L > R, removal of 4 mm sessile polyp base of appendix, showing focal adenoma. The patient was non- compliant with a followup surveillance colonoscopy advised for 5 years later, namely 08/2013. The patient had never been transfused. 09/10/16: Colonoscopy to the TI with multiple biopsies and multiple polypectomies (done at different sites)- extensive pandiverticulosis coli, L > R , fairly extensive RT proctitis, with oozing telangiectasia's to 10 cm (direct biopsies deferred), and removal of 9 benign sessile polyps, ranging in size from 5 mm - 1 cm (7 TA & 2 hyperplastic). A follow-up colonoscopy was advised in 3 years (i.e.- 08/2019), assuming it is warranted then by the risk:benefit ratio, keeping in mind the patient's advanced age and numerous comorbidities. The patient was put on Canasa suppository 1 g Qhs post colonoscopy, which worked well, and the patient stopped it on his own 4 months later, as he was asymptomatic. *Having stated that, Xarelto was resumed by cardiology on 10/05/16, but stopped by them 10/10/16, as the patient had recurrent rectal bleeding, despite the Canasa. 10/13/16: WBC 6.1, H/H 11.4/34.2, MCV 93.6, PLT 157. 11/05/16: K+ 4.3, Na 139, *BUN/Cr 16/0.9, GFR > 60. Anticoagulation therapy was currently on hold as per cardiology, regarding the rectal bleeding from his RT proctitis. The patient & his , Blossom, were aware that the risk of CVA off of anti-coagulation therapy has to be balanced with the risk of GI bleeding. I deferred to cardiology regarding other options of anticoagulation, such as the shorter acting Eliquis. If anticoagulation therapy was resumed, as the patient has had breakthrough rectal bleeding on Canasa suppositories when previously on Xarelto, other options could include local installation of formalin to treat the RT proctitis vs. mucosal stripping of the rectum, although the latter was a somewhat extreme measure. The patient's 07/03/08: duodenal ulcer was remote. *The patient was subsequently found to have a large recurrent DU via 10/12/17: EGD (see below), adding to the reasons not to resume A/C therapy. There were no varices or portal gastropathy then. Mr. Mark Anthony Hodges returned to the office 09/10/17, accompanied by his Blossom, previously here 03/12/17. He had numerous tests done since last here and was found to have cirrhosis, secondary to alcohol abuse. 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 He claimed he last drank EtOH "07/25/17." The patient saw Dr. Salomon 07/27/17 and was reported to be yellow, prompting the liver workup. 07/30/17: lipase 5, PT 12.6, INR 1.2, WBC 7.0, H/H 12.2/36.3, MCV 96.9, RDW 15.4 , PLT 194, glucose 138, BUN/Cr 33/1.29, GFR 52, Na 141, K 4.3, HCO3 24, AG 13, Ca 8.6, alb 2.9, glob 3.1, TBil 1.9, alk phos 130, AST 43, ALT 21, borderline T3RU 37, otherwise nl TFT with TSH 3.53, *MELD 13. : RUQ sono- Cirrhotic liver, no hepatoma, moderate to large ascites, CBD not seen, normal GB. 08/12/17: *Large volume tap by IR- 7.5L removed post 50g SPA, 29 RBC, 208 WBC, 1 % PMN (absolute # PMN = 2), *no SBP, BF prot < 2.0, BF alb < 1.0, high SAAG > 2.0, g stain , C&S- neg, cytology neg. 08/12/17: *Hep A Ab, Hep Bs Ag, Hep B core Ab, Hep C Ab- all neg; TRACEE- neg 1:40, AMA < 20, AFP 3.7, Fe 84, TIBC 233, Fe sat 36%, ferritin 305 *Lasix 40 mg daily had been prescribed PMD. *I added Aldactone 50 mg daily. He remained on Metopolol 50 mg daily, per cardiology. The cirrhosis was discussed with the patient and his , Blossom, in detail . This undoubtedly was from his alcohol abuse, which he allegedly stopped 07/25/17. Extensive serologies were negative. He was made aware that he needed periodic screening to rule out hepatoma. Because of his advanced age and recent alcohol abuse, he did not appear to be a candidate for liver transplant at this point. His last 07/30/17: MELD was relatively stable at 13. *At the patient's last GI OF of 09/10/17, I advised him to have an EGD to rule out varices and if present, would switch his Metoprolol to a non-selective beta paul. 10/08/17: random glu 119, *BUN/Cr 54/1.8, GFR 36 (*new), Na 141, K 4.5, HCO3 23, AG 13, Ca 9.1, alb 2.7, glob 4.0, TBil 2.3, DBil 1.0, alk phos 118, AST 47, ALT 23, Hep Bs Ab- neg (*not immune) *Lasix 40 mg daily, Aldactone 50 mg daily, & Benazepril 40 mg daily were all held after noting the 10/08/17: labs, due to low GFR. *The patient and his were repeatedly told to have the patient follow-up with his PMD and/or a index editor for his low GFR, but the patient never did so. 10/12/17: EGD w/biopsy to D2- Impression: 1. *No esophageal or gastric varices. *No portal gastropathy. 2. 2 cm sliding hernia pouch, from 40-42 cm. Z line at 40 cm. 3. *2 cm well circumscribed, clean-based duodenal ulcer in the bulb, without any active bleeding, with friable edges. There was no clot or visible vessel. Direct biopsies of the duodenal ulcer were deferred, as were therapeutics. 4. Random gastric biopsies: (Specimen A- antrum, Specimen B- fundus; rule out H. pylori), in view of large duodenal bulb ulcer. A. GASTRIC ANTRUM BIOPSY: MINIMAL TO MILD CHRONIC INFLAMMATION. *GIEMSA STAIN IS NEGATIVE FOR HELICOBACTER-TYPE STRUCTURES. NEGATIVE FOR EVIDENCE OF MALIGNANCY. B. GASTRIC FUNDUS BIOPSY: MINIMAL CHRONIC INFLAMMATION. *GIEMSA STAIN IS NEGATIVE FOR HELICOBACTER-TYPE STRUCTURES. NEGATIVE FOR EVIDENCE OF MALIGNANCY. Dictated by: Nickolas Jimenez MD, I called the pt 10/15/17 at 5:35 P.M. at [phone], & spoke with him & his , *Blossom, regarding the benign HP-neg gastric bxs & his 10/15/17: labs. The patient was told in no uncertain terms to refrain from any aspirin or NSAIDs (which he was not taking). He allegedly last drink alcohol 07/25/17. He was a remote cigarette smoker. *He was told to increase Protonix (rxd postop) to 40 mg po BID, 1/2 hour before breakfast & supper. *Advise repeat EGD by the end of 2017, to reassess the huge duodenal bulb ulcer, and if it persists, will need direct biopsies and possible EUS (discussed with Mariza at my office, postop). * Lasix 40 mg daily, Aldactone 50 mg daily, & Benazepril 40 mg daily all recently held, due to low GFR. *They were not to be resumed, as repeat labs 10/15/17: * BUN/Cr 55/2.0, GFR 32, glucose 127, Na 142, K 4.3, HCO3 23, AG 13,Ca 8.9. I again told the pt & his to call their PMD & a index editor to workup his kidneys further. *Follow up with PMD for both Hep A and B vaccinations. *The patient was having vague aches and pains which appeared to be DJD in nature. The patient's was asking for analgesics, and I directed her to the patient' s PMD. *Limit Tylenol to < 2g daily. *Consideration for Ultram, dosing not to exceed 50 mg po BID as needed, with underlying cirrhosis. The patient and his , Blossom, were aware of the severe nature of the patient's illness with his underlying EtOH cirrhosis. Because of his advanced age and recent alcohol abuse , he did not appear to be a candidate for liver transplant at this point. *Agree with no further A/C tx re: hx PAF, with large DU, history of radiation proctitis , past history of lower GI bleeding, etc., along with the fact that he was in NSR as of 09/10/17. Limit Tylenol to < 2 g daily. Avoid hepatotoxins. 2 g Na+ diet. I advised an annual flu shot, which the patient did not want. I also told him he should have a Pneumovax if never obtained. I advised a follow-up GI visit in 3 months. He will need a repeat AFP and RUQ sono every 6 months for HCC surveillance, next due in 01/2018. One might consider follow-up surveillance colonoscopy in 08/2019 regarding his colon adenomas, but the overall risk: benefit ratio will have to be taken into account at that point, keeping in mind his advanced age and numerous comorbidities. He was advised to continue fiber supplements for his diverticular disease. He will follow-up with his numerous physicians. The patient's , Blossom, called me earlier this a.m, 10/22/17, stating that the patient had low back pain "10 out of 10" & could not get out of bed. He could not make it to his PMD regarding his low GFR. He was given Fentanyl 50 mcg by EMS [facility] & sent to the [place] [facility], where he arrived 10/22/17 at 8:36 a.m. Upon arrival, BP 104/57, P 112, R 16, T 98, O2 sat RA 96%. He was given 1L of NS in the ER, along with Dilaudid, Zofran, & empiric IV Ceftriaxone & IV Flagyl. The patient had a large volume ascitic tap by IR on admission, with 7.5L of clear, yellow ascites removed (*neg SBP, high SAAG, low protein), post 37.5g IV SPA. The patient claimed his low back pain just above the tailbone was subacute on chronic. He found it difficult to ambulate for the past day [facility]. He had diffuse weakness, but had no signs or symptoms of cord compression. *Please note, 03/23/17: PSA < 0.00. He denied taking any aspirin or NSAIDs, but was taking Tylenol for his back pain. He was on Protonix 40 mg po BID as an outpt for his DU. He denied any nausea or vomiting (aside from dry heaves post Dilaudid for his back). He denied any odynophagia, dysphagia, hematemesis, melena, abdominal pain, CP, SOB, early satiety, diarrhea, constipation, obstipation, or tenesmus. He had occasional scant BRBPR on the toilet paper after defecation, which he attributed to his RT proctitis. He had stopped his Canasa suppositories a while ago, which previously helped these sx. He denied any fevers, chills, jaundice, dark urine, light stool, pruritus, confusion, symptoms of UTI, or URI. He had lost weight, exact amount unknown. Some of this was attributed to volume loss from abdominal taps, as his ascites related to his diuretics were held, due to low GFR. His appetite was fair & he had generalized weakness. Aside from a paternal female cousin having Crohn's disease, there was no family history of any additional GI disease, GI Ca, or inherited liver disease. 10/22/17: Admission labs- WBC 13.1 (83% gran/11 gran Ab), H/H 10.4/31, MCV 94.2, RDW 15.5, PLT 170, PT 13.9,INR 1.33, PTT 37, glucose 147, BUN/Cr 46/1.8, GFR 36, Na 141, K 4.6, HCO3 23, AG 11, *lactate 3.6-> 3.1, Ca 9.1, alb 2.7, glob 3.7, TBil 2.8, DBil 0.8, alk phos 114, AST 45, ALT 29, NH3 14, troponin < 0.01. 10/22/17: *Admission MELD 20. 10/22/17: 11 RBC, 22 WBC (1 PMN/14L/85 Meso-histio), *absolute # PMN 0.22 (*no SBP), BF protein < 2.0, BF albumin < 1.0, SAAG > 1.7 (*high SAAG, low prot), 10/22/17: BC x 2- pending. 10/22/17: Ascitic gram stain- no WBC, no organisms; ascitic culture- pending. 10/22/17: EKG- afib @ 94, low voltage throughout, borderline diffuse T wave abnormalities throughout, borderline prolonged QT interval. 10/22/17: CT ABDOMEN AND PELVIS WITHOUT IV CONTRAST (low GFR)- There is a large volume of intra-abdominal and intrapelvic ascites, extending into a sizable left inguinal hernia; the hernia also contains fat & a loop of nondistended sigmoid colon. No bowel obstruction. Few colonic diverticula without diverticulitis. The liver is shrunken and nodular, compatible with the history of cirrhosis. No obvious HCC or pancreatic lesion (within the limits of a non-IV contrast study). Normal GB. No ductal dilatation. Calcified aorta without AAA. Fibrotic changes at lung bases peripherally. No infiltrate. Coronary artery calcification. No retroperitoneal bleed. Lower lumbar dextroscoliosis. 10/22/17: XR PORTABLE CHEST- 1. No evidence of acute pulmonary process on this limited examination. Chronic right clavicular fracture. 2. Chronic appearing changes of the lungs, better described on the recent chest CT from 07/21/2017 suggesting chronic lung disease. 10/22/17: US-PARACENTESIS (by IR)- 7.5 L of clear yellow fluid was aspirated before drainage ceased. The patient has decompensated alcoholic cirrhosis. His ascites showed high SAAG, low protein, consistent with primary liver etiology of his ascites. There was no SBP on admission large volume tap, done with SPA. The duodenal ulcer is noted (H.pylori-negative). He allegedly stopped his EtOH abuse on 07/25/17. He has known RT proctitis, post XRT for prostate Ca. The hx of colon adenoma & diverticulosis coli are noted. Regarding the low back pain, 03/23/17: *PSA < 0.00. His LIH was somewhat reducible and there was no bowel obstruction on CT. For numerous reasons, the patient's A/C tx remained on hold as per previous discussion with cardiology, regarding afib. The ARF is noted. Admission CT without hydronephrosis. ARF persisted despite holding Lasix, Aldactone & Benazepril in mid-09/2017. Uncertain if ATN > pre-renal vs. HRS. If ATN, would expect Justus > 10 & FENa > 1.0. If pre-renal vs. HRS, would expect Justus < 10 & FENa < 1.0. SUGGEST: 2g Na+ diet. *Check Justus & FENa. *Check U/A. Gentle IVF, but limit IV NS, which will exacerbate ascites. Strict I/O's. Close follow-up of lytes/GFR. *Resume IV SPA 25g Q8h for now.*Advise PPI BID (can give po). *No ASA or NSAIDS. Limit Tylenol to < 2 g daily. Avoid hepatotoxins. Panculture. *As no SBP, agree with holding further Ceftriaxone & Flagyl for now.*Advise repeat EGD by the end of , to reassess the huge duodenal bulb ulcer, and if it persists, will need direct biopsies and possible EUS (doubt pancreatic lesion accounting for the large DU; none seen on non-IV contrast CT). *Canasa suppositories 1g pr Qhs. * Renal consult. *Workup of low back pain per medical team (*nl PSA as above- consider checking SPEP/IPEP, MRI LS spine and/or bone scan). Analgesics per medical team, keeping in mind cirrhosis & renal insufficiency. *Consideration for Ultram, dosing not to exceed 50 mg po BID as needed, with underlying cirrhosis, if okay with renal. Physical tx consult to mobilize patient. DVT prophylaxis with mechanical ALPS. [*Lasix 40 mg daily, Aldactone 50 mg daily, & Benazepril 40 mg daily ALL remain on HOLD]. I advised an annual flu shot, which the patient had refused. Advise Pneumovax, if never obtained. Advise semi- elective vaccination against both Hepatitis A and B. Advise repeat AFP and RUQ sono every 6 months for HCC surveillance, next due in 01/2018. One might consider follow-up surveillance colonoscopy in 08/2019, regarding his colon adenomas, but the overall risk:benefit ratio will have to be taken into account at that point, keeping in mind his advanced age and numerous comorbidities. The patient and his , Blossom, were previously made aware of the severe nature of the patient's illness due to his underlying EtOH cirrhosis. Because of his advanced age and recent alcohol abuse, he did not appear to be a candidate for liver transplant. He has no varices and therefore, Toprol does not have to be switched to a non-selective beta paul. Zofran as needed (dry heaves post Dilaudid). *Agree with no further A/C tx re: hx PAF, with large DU, history of radiation proctitis, past history of lower GI bleeding, etc., as per previous discussion with cardiology. The above was discussed with the medical housestaff. Further GI recommendations to follow, depending on clinical course. Problem List: 1. Cirrhosis 2. Ascites 3. Duodenal ulcer 4. Alcohol abuse 5. Radiation proctitis 6. History of adenomatous polyp of colon 7. Diverticula of colon 8. Low back pain 9. Left inguinal hernia 10. History of prostate cancer 11. ARF (acute renal failure) 12. Afib Copies To: Domi SINGH,Cr Mathew; Radha SINGH,Cr Kevin; Umm SINGH,Alo Barahona; Umm SINGH,Tierra Mathew; Satnam SINGH,Donnell Sandhu Consult Acknowledgment - Thank you for your consult request.
[2017-10-22 18:45] VITALS: BP 98/60
[2017-10-22 20:35] VITALS: BP 110/68
[2017-10-22 22:47] VITALS: BP 112/58
--- NOTE | 2017-10-23 05:40 | PN- Housestaff ---
See Addendum Subjective Follow-up For: ascites, cirrhosis JAIMIE weakness back pain weight loss Subjective: patient still complaining of back pain and weakness no new complaints at this time no dyspnea, chest pain, abdominal pain, fevers or chills Review of Systems Constitutional: Reports: see HPI. Objective Last 24 Hrs of Vital Signs/I&O Vital Signs Date Time Temp Pulse Resp B/P B/P Pulse O2 O2 Flow FiO2 Mean Ox Delivery Rate 10/23 0700 97.8 90 20 111/63 99 Room Air 10/22 2247 98.2 100 19 112/58 100 Room Air 10/22 2116 1125/58 10/22 2035 79 110/68 10/22 1845 98.0 108 19 98/60 100 Room Air 10/22 1637 97.5 88 20 102/62 99 Room Air 10/22 1626 98.3 92 20 109/53 98 Room Air 10/22 1350 88 16 104/70 98 Room Air 10/22 1201 97.0 78 16 121/62 99 Room Air 10/22 1127 98.2 10/22 1040 97.0 87 16 119/64 96 Room Air Intake & Output 10/23 1600 10/23 0800 10/23 0000 Intake Total 200 Output Total 220 50 Balance -220 150 Intake, IV 200 Output, Urine 220 50 Patient 79.634 kg Weight Weight Bed scale Measurement Method Physical Exam General Appearance: Alert, Oriented X3, Cooperative, No Acute Distress Cardiovascular: Regular Rate, Normal S1, Normal S2, No Murmurs Lungs: Clear to Auscultation, Normal Air Movement Abdomen: Normal Bowel Sounds, Soft, No Tenderness, No Masses, very distended abdomen, soft +ascites, large left scortal hernia Extremities: No Clubbing, No Cyanosis, No Edema, Normal Pulses Current Medications: Current Medications Sig/Quinton Start time Last Medication Dose Route Stop Time Status Admin Acetaminophen 650 MG Q8P PRN 10/22 1545 AC PO Albumin Human 25 GM Q8 10/22 2200 AC 10/23 IV 0532 Albumin Human 25 GM ONCE ONE 10/22 1630 DC 10/22 IV 10/22 1631 1718 Albumin Human 12.5 GM ONCE ONE 10/22 1600 DC 10/22 IV 10/22 1601 1627 Ceftriaxone Sodium 0 .STK-MED ONE 10/22 1559 DC .ROUTE Ceftriaxone Sodium 1,000 MG ONCE ONE 10/22 1415 DC 10/22 IV 10/22 1416 1604 Heparin Sodium 5,000 UNIT Q8 10/23 0600 AC 10/23 (Porcine) SC 0532 Hydromorphone HCl 0.5 MG Q8P PRN 10/22 1600 AC 10/23 IV 0532 Hydromorphone HCl 0.5 MG ONCE ONE 10/22 1045 DC 10/22 IV 10/22 1046 1041 Hydromorphone HCl 0 .STK-MED ONE 10/22 1039 DC .ROUTE Mesalamine 1,000 MG AT BEDTIME 10/22 2200 AC SD Metoprolol Succinate 50 MG DAILY 10/22 1606 AC 10/22 PO 2116 Metronidazole 500 MG ONCE ONE 10/22 1415 DC N/A 1 UNIT IV 10/22 1514 Ondansetron HCl 4 MG Q6P PRN 10/22 1600 AC IV Ondansetron HCl 4 MG ONCE ONE 10/22 1215 DC 10/22 IV 10/22 1216 1210 Ondansetron HCl 0 .STK-MED ONE 10/22 1200 DC .ROUTE Pantoprazole Sodium 0 .STK-MED ONE 10/22 1702 DC IV Pantoprazole Sodium 40 MG DAILY 10/22 1606 AC 10/22 IV 1718 Sodium Chloride 1,000 ML Q13H 10/22 1630 DC 10/22 IV 10/23 0529 1842 Sodium Chloride 1,000 ML BOLUS ONE 10/22 1445 DC 10/22 IV 10/22 1544 1604 Sodium Chloride 1,000 ML BOLUS ONE 10/22 1015 DC 10/22 IV 10/22 1114 1031 Last 24 Hrs of Lab/Natan Results Last 24 Hrs of Labs/Mics: Laboratory Tests 10/23/17 0725: Sodium Pending, Potassium Pending, Chloride Pending, Carbon Dioxide Pending, Anion Gap Pending, BUN Pending, Creatinine Pending, BUN/Creatinine Ratio Pending , Lactic Acid Pending, CBC w Diff Pending, WBC Pending, RBC Pending, Hgb Pending , Hct Pending, MCV Pending, MCH Pending, RDW Pending, Plt Count Pending, MPV Pending, PUBS MCHC Pending 10/22/17 2100: Urine Color ORANG H, Urine Clarity CLDY H, Urine pH 5.0, Ur Specific [place] 1.025, Urine Protein 30 H, Urine Ketones TRACE H, Urine Nitrite POS H, Urine Bilirubin POS@ICTO H, Urine Urobilinogen 1.0, Ur Leukocyte Esterase NEG, Ur Microscopic SEDIMENT EXAMINED, Urine RBC 1-3, Urine WBC 3-5 H, Urine Bacteria FEW H, Hyaline Casts 15-25 H, Urine Hemoglobin NEG, Urine Glucose NEG 10/22/17 1903: Lactic Acid 2.3 H 10/22/17 1402: Lactic Acid 3.1 H 10/22/17 1200: Lymphocytes 14, % Normal PMNs 1, Misc Hematology Test 85, Fluid WBC 22 H, Fld Total RBCs Counted 11 H 10/22/17 1149: Fluid Total Protein < 2.0, Fluid Albumin < 1.0 10/22/17 0930: Lactic Acid 3.6 H Microbiology 10/22 1149 BODY FLUID: Body Fluid Culture - RES 10/22 1149 BODY FLUID: Gram Stain - RES 10/22 1032 BLOOD: Blood Culture - RECD 10/22 1029 BLOOD: Blood Culture - RECD Assessment/Plan Assessment: 82 yo man with a PMHx. of HTN ,HLD, borderline DM, paroxysmal A.fib not on AC 2/ 2 GI bleed, Hx. of prostate cancer, alcohol related cirrhosis with recent decompensation 2 months ago after presenting with ascites and undergoing paracentesis in the GI office presented to the emergency room with a complaints of severe back pain, weakness, and inability to get out of bed. Cirrhosis with ascites: Diagnostic and therapeutic paracentesis performed 7.5 L of fluid removed Ascitic fluid analysis no evidence of spontaneous bacterial peritonitis Monitor off antibiotics Gastroenterology consultation 25% albumin Q8H Trend lactic acid Avoid NSAIDs, duodenal ulcer on EGD, negative for varices Limit tylenol Follow up GI recommendations History off rectal bleeding, radiation proctitis, and duodenoal ulcer Off anticoagulation for atrial fibrillation for the above reasons, increased stroke risk Last alcohol intake 07/25/17 JAIMIE: Continue to hold furosemide, ACEi, and spironolactone Nephrology consulted, follow up their recommendations Trial of albumin 25g IV Q8H Avoid NSAIDs, nephrotoxic agents Trend renal function Check urinalysis and urine electrolytes Atrial fibrillation: Continue metoprolol No anticoagulation Weakness: Physical therapy evaluation Heart healthy diet-2gram sodium restriction DVT ppx-lovenox 40mg subcutaneous daily DNR/DNI Problem List: 1. Left inguinal hernia 2. History of prostate cancer 3. ARF (acute renal failure) 4. Radiation proctitis 5. Cirrhosis 6. Ascites 7. Intractable pain Pain Ratin Pain Location: back Pain Goal: Pain 4 or less Pain Plan: prn Tomorrow's Labs & Rationales: cbc, bep
[2017-10-23 07:00] VITALS: BP 111/63
[2017-10-23 09:14] LABS: ABSOLUTE BASOPHIL COUNT 0 /CUMM (0.0-0.2); ABSOLUTE EOSINOPHIL COUNT 0 /CUMM (0.0-0.7); ABSOLUTE GRANULOCYTE CT 12.3 /CUMM (1.4-6.5); ABSOLUTE MONOCYTE COUNT 1.3 /CUMM (0.10-0.60); WHITE BLOOD CELL COUNT 14.9 /CUMM (4.8-10.8)
[2017-10-23 09:41] LABS: ABSOLUTE LYMPH COUNT 1.3 /CUMM (1.2-3.4); BASOPHIL % 0.2 % (0.0-2.0); EOSINOPHIL % 0.2 % (0-5); GRANULOCYTE % 82.5 % (42.2-75.2); MEAN CORPUSCULAR HGB 31.4 PG (27.0-31.0); MEAN CORPUSCULAR HGB CONC 32.9 G/DL (33.0-37.0); MEAN CORPUSCULAR VOLUME 95.6 FL (80.0-94.0); PLATELET COUNT 109 /CUMM (130-400); RBC DISTRIBUTION WIDTH 15.6 % (11.5-14.5); RED BLOOD CELL CT 2.71 /CUMM (4.70-6.10)
[2017-10-23 09:52] LABS: HEMATOCRIT 25.9 % (42-52)
--- NOTE | 2017-10-23 11:48 | PN- Gastroenterology ---
Assessment/Plan Assessment/Recommendations: 82-year-old male, followed by Dr. Hay for primary care, Dr. Salomon for cardiology, Dr. Edson Garcia for RT, & Dr. Duron, for urology, with a history of hypertension, hyperlipidemia, borderline diabetic, glaucoma, ex-15 pack year cigarette smoker stopped 1989, and history of alcohol abuse, consisting of > 3 drinks of vodka & 7-Up daily. He previously drank more years ago. He claimed to have last drank EtOH 07/25/17. Cirrhosis became evident when he presented with ascites in 07/2017. 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 He developed paroxysmal atrial fibrillation since. He was put on Xarelto by cardiology 08/25/16 Two days later, the patient developed painless BRBPR after defecation of brown stool, with bright red blood on the toilet paper, without any spontaneous lower GI bleeding or melena. Xarelto was held by cardiology 09/02/16, after the rectal bleeding occurred. Please note, 07/06/14: prostate biopsy- prostate adenocarcinoma, Toy 7. The patient was treated with external-beam radiation for 45 courses, completed 11/14/14. There was a questionable history of hemorrhoids. The patient did have loose stool on Fenofibrate, which was stopped 08/25/16, and the loose stools resolved. He did not use any NSAIDs or aspirin. He had no neurologic complaints. Please note, the patient has a past history of duodenal ulcer. 06/14/08: CT scan of the abdomen and pelvis with contrast- questionable gastric outlet obstruction. 07/03/2008: EGD- large friable 2 cm2 duodenal ulcer in the bulb, without any clot or visible vessel, with scarring of the bulb, patent pylorus, no gastric outlet obstruction, & *HP-negative gastritis on biopsy. The patient had been maintained on Omeprazole since, but may not have been fully compliant with this. 09/11/08: Followup EGD plus baseline colonoscopy to the cecum- healed duodenal ulcer, tiny hiatal hernia, Z-line at 41 cm, patent pylorus, no gastric outlet obstruction; moderate pandiverticulosis coli, L > R, removal of 4 mm sessile polyp base of appendix, showing focal adenoma. The patient was non- compliant with a followup surveillance colonoscopy advised for 5 years later, namely 08/2013. The patient had never been transfused. 09/10/16: Colonoscopy to the TI with multiple biopsies and multiple polypectomies (done at different sites)- extensive pandiverticulosis coli, L > R , fairly extensive RT proctitis, with oozing telangiectasia's to 10 cm (direct biopsies deferred), and removal of 9 benign sessile polyps, ranging in size from 5 mm - 1 cm (7 TA & 2 hyperplastic). A follow-up colonoscopy was advised in 3 years (i.e.- 08/2019), assuming it is warranted then by the risk:benefit ratio, keeping in mind the patient's advanced age and numerous comorbidities. The patient was put on Canasa suppository 1 g Qhs post colonoscopy, which worked well, and the patient stopped it on his own 4 months later, as he was asymptomatic. *Having stated that, Xarelto was resumed by cardiology on 10/05/16, but stopped by them 10/10/16, as the patient had recurrent rectal bleeding, despite the Canasa. 10/13/16: WBC 6.1, H/H 11.4/34.2, MCV 93.6, PLT 157. 11/05/16: K+ 4.3, Na 139, *BUN/Cr 16/0.9, GFR > 60. Anticoagulation therapy was currently on hold as per cardiology, regarding the rectal bleeding from his RT proctitis. The patient & his , Blossom, were aware that the risk of CVA off of anti-coagulation therapy has to be balanced with the risk of GI bleeding. I deferred to cardiology regarding other options of anticoagulation, such as the shorter acting Eliquis. If anticoagulation therapy was resumed, as the patient has had breakthrough rectal bleeding on Canasa suppositories when previously on Xarelto, other options could include local installation of formalin to treat the RT proctitis vs. mucosal stripping of the rectum, although the latter was a somewhat extreme measure. The patient's 07/03/08: duodenal ulcer was remote. *The patient was subsequently found to have a large recurrent DU via 10/12/17: EGD (see below), adding to the reasons not to resume A/C therapy. There were no varices or portal gastropathy then. Mr. Mark Anthony Hodges returned to the office 09/10/17, accompanied by his Blossom, previously here 03/12/17. He had numerous tests done since last here and was found to have cirrhosis, secondary to alcohol abuse. 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 He claimed he last drank EtOH "07/25/17." The patient saw Dr. Salomon 07/27/17 and was reported to be yellow, prompting the liver workup. 07/30/17: lipase 5, PT 12.6, INR 1.2, WBC 7.0, H/H 12.2/36.3, MCV 96.9, RDW 15.4 , PLT 194, glucose 138, BUN/Cr 33/1.29, GFR 52, Na 141, K 4.3, HCO3 24, AG 13, Ca 8.6, alb 2.9, glob 3.1, TBil 1.9, alk phos 130, AST 43, ALT 21, borderline T3RU 37, otherwise nl TFT with TSH 3.53, *MELD 13. 101: RUQ sono- Cirrhotic liver, no hepatoma, moderate to large ascites, CBD not seen, normal GB. 08/12/17: *Large volume tap by IR- 7.5L removed post 50g SPA, 29 RBC, 208 WBC, 1 % PMN (absolute # PMN = 2), *no SBP, BF prot < 2.0, BF alb < 1.0, high SAAG > 2.0, g stain , C&S- neg, cytology neg. 08/12/17: *Hep A Ab, Hep Bs Ag, Hep B core Ab, Hep C Ab- all neg; TRACEE- neg 1:40, AMA < 20, AFP 3.7, Fe 84, TIBC 233, Fe sat 36%, ferritin 305 *Lasix 40 mg daily had been prescribed PMD. *I added Aldactone 50 mg daily. He remained on Metopolol 50 mg daily, per cardiology. The cirrhosis was discussed with the patient and his , Blossom, in detail . This undoubtedly was from his alcohol abuse, which he allegedly stopped 07/25/17. Extensive serologies were negative. He was made aware that he needed periodic screening to rule out hepatoma. Because of his advanced age and recent alcohol abuse, he did not appear to be a candidate for liver transplant at this point. His last 07/30/17: MELD was relatively stable at 13. *At the patient's last GI OF of 09/10/17, I advised him to have an EGD to rule out varices and if present, would switch his Metoprolol to a non-selective beta paul. 10/08/17: random glu 119, *BUN/Cr 54/1.8, GFR 36 (*new), Na 141, K 4.5, HCO3 23, AG 13, Ca 9.1, alb 2.7, glob 4.0, TBil 2.3, DBil 1.0, alk phos 118, AST 47, ALT 23, Hep Bs Ab- neg (*not immune) *Lasix 40 mg daily, Aldactone 50 mg daily, & Benazepril 40 mg daily were all held after noting the 10/08/17: labs, due to low GFR. *The patient and his were repeatedly told to have the patient follow-up with his PMD and/or a broodmare foreman for his low GFR, but the patient never did so. 10/12/17: EGD w/biopsy to D2- Impression: 1. *No esophageal or gastric varices. *No portal gastropathy. 2. 2 cm sliding hernia pouch, from 40-42 cm. Z line at 40 cm. 3. *2 cm well circumscribed, clean-based duodenal ulcer in the bulb, without any active bleeding, with friable edges. There was no clot or visible vessel. Direct biopsies of the duodenal ulcer were deferred, as were therapeutics. 4. Random gastric biopsies: (Specimen A- antrum, Specimen B- fundus; rule out H. pylori), in view of large duodenal bulb ulcer. A. GASTRIC ANTRUM BIOPSY: MINIMAL TO MILD CHRONIC INFLAMMATION. *GIEMSA STAIN IS NEGATIVE FOR HELICOBACTER-TYPE STRUCTURES. NEGATIVE FOR EVIDENCE OF MALIGNANCY. B. GASTRIC FUNDUS BIOPSY: MINIMAL CHRONIC INFLAMMATION. *GIEMSA STAIN IS NEGATIVE FOR HELICOBACTER-TYPE STRUCTURES. NEGATIVE FOR EVIDENCE OF MALIGNANCY. Dictated by: Barbara SINGH,Nickolas Wilkins called the pt 10/15/17 at 5:35 P.M. at [phone], & spoke with him & his , *Blossom, regarding the benign HP-neg gastric bxs & his 10/15/17: labs. The patient was told in no uncertain terms to refrain from any aspirin or NSAIDs (which he was not taking). He allegedly last drink alcohol 07/25/17. He was a remote cigarette smoker. *He was told to increase Protonix (rxd postop) to 40 mg po BID, 1/2 hour before breakfast & supper. *Advise repeat EGD by the end of 2017, to reassess the huge duodenal bulb ulcer, and if it persists, will need direct biopsies and possible EUS (discussed with Mariza at my office, postop). * Lasix 40 mg daily, Aldactone 50 mg daily, & Benazepril 40 mg daily all recently held, due to low GFR. *They were not to be resumed, as repeat labs 10/15/17: * BUN/Cr 55/2.0, GFR 32, glucose 127, Na 142, K 4.3, HCO3 23, AG 13,Ca 8.9. I again told the pt & his to call their PMD & a broodmare foreman to workup his kidneys further. *Follow up with PMD for both Hep A and B vaccinations. *The patient was having vague aches and pains which appeared to be DJD in nature. The patient's was asking for analgesics, and I directed her to the patient' s PMD. *Limit Tylenol to < 2g daily. *Consideration for Ultram, dosing not to exceed 50 mg po BID as needed, with underlying cirrhosis. The patient and his , Blossom, were aware of the severe nature of the patient's illness with his underlying EtOH cirrhosis. Because of his advanced age and recent alcohol abuse , he did not appear to be a candidate for liver transplant at this point. *Agree with no further A/C tx re: hx PAF, with large DU, history of radiation proctitis , past history of lower GI bleeding, etc., along with the fact that he was in NSR as of 09/10/17. Limit Tylenol to < 2 g daily. Avoid hepatotoxins. 2 g Na+ diet. I advised an annual flu shot, which the patient did not want. I also told him he should have a Pneumovax if never obtained. I advised a follow-up GI visit in 3 months. He will need a repeat AFP and RUQ sono every 6 months for HCC surveillance, next due in 01/2018. One might consider follow-up surveillance colonoscopy in 08/2019 regarding his colon adenomas, but the overall risk: benefit ratio will have to be taken into account at that point, keeping in mind his advanced age and numerous comorbidities. He was advised to continue fiber supplements for his diverticular disease. He will follow-up with his numerous physicians. The patient's , Blossom, called me earlier this a.m, 10/22/17, stating that the patient had low back pain "10 out of 10" & could not get out of bed. He could not make it to his PMD regarding his low GFR. He was given Fentanyl 50 mcg by EMS DIESEL DINKEY OPERATOR & sent to the [place] [facility], where he arrived 10/22/17 at 8:36 a.m. Upon arrival, BP 104/57, P 112, R 16, T 98, O2 sat RA 96%. He was given 1L of NS in the ER, along with Dilaudid, Zofran, & empiric IV Ceftriaxone & IV Flagyl. The patient had a large volume ascitic tap by IR on admission, with 7.5L of clear, yellow ascites removed (*neg SBP, high SAAG, low protein), post 37.5g IV SPA. The patient claimed his low back pain just above the tailbone was subacute on chronic. He found it difficult to ambulate for the past day DIESEL DINKEY OPERATOR. He had diffuse weakness, but had no signs or symptoms of cord compression. *Please note, 03/23/17: PSA < 0.00. He denied taking any aspirin or NSAIDs, but was taking Tylenol for his back pain. He was on Protonix 40 mg po BID as an outpt for his DU. He denied any nausea or vomiting (aside from dry heaves post Dilaudid for his back). He denied any odynophagia, dysphagia, hematemesis, melena, abdominal pain, CP, SOB, early satiety, diarrhea, constipation, obstipation, or tenesmus. He had occasional scant BRBPR on the toilet paper after defecation, which he attributed to his RT proctitis. He had stopped his Canasa suppositories a while ago, which previously helped these sx. He denied any fevers, chills, jaundice, dark urine, light stool, pruritus, confusion, symptoms of UTI, or URI. He had lost weight, exact amount unknown. Some of this was attributed to volume loss from abdominal taps, as his ascites related to his diuretics were held, due to low GFR. His appetite was fair & he had generalized weakness. Aside from a paternal female cousin having Crohn's disease, there was no family history of any additional GI disease, GI Ca, or inherited liver disease. 10/22/17: Admission labs- WBC 13.1 (83% gran/11 gran Ab), H/H 10.4/31, MCV 94.2, RDW 15.5, PLT 170, PT 13.9,INR 1.33, PTT 37, glucose 147, BUN/Cr 46/1.8, GFR 36, Na 141, K 4.6, HCO3 23, AG 11, *lactate 3.6-> 3.1, Ca 9.1, alb 2.7, glob 3.7, TBil 2.8, DBil 0.8, alk phos 114, AST 45, ALT 29, NH3 14, troponin < 0.01. 10/22/17: *Admission MELD 20. 10/22/17: 11 RBC, 22 WBC (1 PMN/14L/85 [place]-histio), *absolute # PMN 0.22 (*no SBP), BF protein < 2.0, BF albumin < 1.0, SAAG > 1.7 (*high SAAG, low prot), 10/22/17: BC x 2- pending. 10/22/17: Ascitic gram stain- no WBC, no organisms; ascitic culture- pending. 10/22/17: EKG- afib @ 94, low voltage throughout, borderline diffuse T wave abnormalities throughout, borderline prolonged QT interval. 10/22/17: CT ABDOMEN AND PELVIS WITHOUT IV CONTRAST (low GFR)- There is a large volume of intra-abdominal and intrapelvic ascites, extending into a sizable left inguinal hernia; the hernia also contains fat & a loop of nondistended sigmoid colon. No bowel obstruction. Few colonic diverticula without diverticulitis. The liver is shrunken and nodular, compatible with the history of cirrhosis. No obvious HCC or pancreatic lesion (within the limits of a non-IV contrast study). Normal GB. No ductal dilatation. Calcified aorta without AAA. Fibrotic changes at lung bases peripherally. No infiltrate. Coronary artery calcification. No retroperitoneal bleed. Lower lumbar dextroscoliosis. 10/22/17: XR PORTABLE CHEST- 1. No evidence of acute pulmonary process on this limited examination. Chronic right clavicular fracture. 2. Chronic appearing changes of the lungs, better described on the recent chest CT from 07/21/2017 suggesting chronic lung disease. 10/22/17: US-PARACENTESIS (by IR)- 7.5 L of clear yellow fluid was aspirated before drainage ceased. The patient has decompensated alcoholic cirrhosis. His ascites showed high SAAG, low protein, consistent with primary liver etiology of his ascites. There was no SBP on admission large volume tap, done with SPA. The duodenal ulcer is noted (H.pylori-negative). He allegedly stopped his EtOH abuse on 07/25/17. He has known RT proctitis, post XRT for prostate Ca. The hx of colon adenoma & diverticulosis coli are noted. Regarding the low back pain, 03/23/17: *PSA < 0.00. His LIH was somewhat reducible and there was no bowel obstruction on CT. For numerous reasons, the patient's A/C tx remained on hold as per previous discussion with cardiology, regarding afib. The ARF is noted. Admission CT without hydronephrosis. ARF persisted despite holding Lasix, Aldactone & Benazepril in mid-09/2017. Uncertain if ATN > pre-renal vs. HRS. If ATN, would expect Justus > 10 & FENa > 1.0. If pre-renal vs. HRS, would expect Justus < 10 & FENa < 1.0. 10/22/17: U/A- cloudy, orange, 1.025, 5.0, 1-3 RBC, 3-5 WBC, 15-25 hyaline casts , few bact, tr ket, + icto, 30+ protein, urobilinogen 1.0; pos nitrite, neg esterase. 10/23/17: WBC 14.9, H/H 8.5/25.9, MCV 956, RDW 15.6, PLT 109, BUN/Cr 50/1.6, GFR 42, Na 144, K 4.3, HCO3 21, AG 13, lactate 1.5. *As of 10/23/17, the patient remained hemodynamically stable and afebrile, with O2 sat RA 99%. Ascitic cultures remained negative, as expected (no SBP on admission large volume abdominal tap). BC x 2 remain negative. He had mild leukocytosis, with worsening anemia (? partially dilutional). GFR was slightly better, post SPA 25g IV Q8h. There was no overt GI bleeding, hematemesis, or melena, aside from the known RT proctitis. He received physical therapy & was on a 2g Na+ diet with fair po intake. He still c/o low back pain. He had no sx of cord compression. He was minimally icteric. He denied any confusion or pruritus. Canasa suppositories were added. Renal consult is pending. SUGGEST: 2g Na+ diet. *Check Justus & FENa. Gentle IVF, but limit IV NS, which will exacerbate ascites. Strict I/O's. Close follow-up of lytes/GFR. *Continue IV SPA 25g Q8h for now.* Advise switch Protonix 40 mg IV daily to Protonix 40 mg po BID. *No ASA or NSAIDS. Limit Tylenol to < 2 g daily. Avoid hepatotoxins. Panculture. *As no SBP , agree with holding further Ceftriaxone & Flagyl for now.*Advise repeat EGD by the end of 11/2017, to reassess the huge duodenal bulb ulcer, and if it persists , will need direct biopsies and possible EUS (doubt pancreatic lesion accounting for the large DU; none seen on non-IV contrast CT). *Cntinue Canasa suppositories 1g pr Qhs. *Renal consult. *Workup of low back pain per medical team (*nl PSA as above- *consider checking SPEP/IPEP, MRI LS spine and/or bone scan). Analgesics per medical team, keeping in mind cirrhosis & renal insufficiency. *Consideration for Ultram, dosing not to exceed 50 mg po BID as needed, with underlying cirrhosis, if okay with renal. Cntinue physical tx. DVT prophylaxis with mechanical ALPS. [*Lasix 40 mg daily, Aldactone 50 mg daily, & Benazepril 40 mg daily ALL remain on HOLD]. I advised an annual flu shot, which the patient had refused. Advise Pneumovax, if never obtained. Advise semi- elective vaccination against both Hepatitis A and B. Advise repeat AFP and RUQ sono every 6 months for HCC surveillance, next due in 01/2018. One might consider follow-up surveillance colonoscopy in 08/2019, regarding his colon adenomas, but the overall risk:benefit ratio will have to be taken into account at that point, keeping in mind his advanced age and numerous comorbidities. The patient and his , Blossom, were previously made aware of the severe nature of the patient's illness due to his underlying EtOH cirrhosis. Because of his advanced age and recent alcohol abuse, he did not appear to be a candidate for liver transplant. He has no varices and therefore, Toprol does not have to be switched to a non-selective beta paul. Zofran as needed (dry heaves post Dilaudid). *Agree with no further A/C tx re: hx PAF, with large DU, history of radiation proctitis, past history of lower GI bleeding, etc., as per previous discussion with cardiology. The above was discussed with Dr. Jamie Salomon & the medical housestaff. I also spoke with the patent & his , Kenya, & his son, Alvin, at the bedside, 10/23/17. Further GI recommendations to follow, depending on clinical course. Problem List: 1. Cirrhosis 2. Ascites 3. Duodenal ulcer 4. Alcohol abuse 5. Radiation proctitis 6. History of adenomatous polyp of colon 7. Diverticula of colon 8. Low back pain 9. Left inguinal hernia 10. History of prostate cancer 11. ARF (acute renal failure) 12. Afib Subjective Subjective: 10/22/17: U/A- cloudy, orange, 1.025, 5.0, 1-3 RBC, 3-5 WBC, 15-25 hyaline casts , few bact, tr ket, + icto, 30+ protein, urobilinogen 1.0; pos nitrite, neg esterase. 10/23/17: WBC 14.9, H/H 8.5/25.9, MCV 956, RDW 15.6, PLT 109, BUN/Cr 50/1.6, GFR 42, Na 144, K 4.3, HCO3 21, AG 13, lactate 1.5. *As of 10/23/17, the patient remained hemodynamically stable and afebrile, with O2 sat RA 99%. Ascitic cultures remained negative, as expected (no SBP on admission large volume abdominal tap). BC x 2 remain negative. He had mild leukocytosis, with worsening anemia (? partially dilutional). GFR was slightly better, post SPA 25g IV Q8h. There was no overt GI bleeding, hematemesis, or melena, aside from the known RT proctitis. He received physical therapy & was on a 2g Na+ diet with fair po intake. He still c/o low back pain. He had no sx of cord compression. He was minimally icteric. He denied any confusion or pruritus. Canasa suppositories were added. Renal consult is pending. Review of Systems: Full 14 point ROS otherwise N/C, and as above. Review of Systems Constitutional: Reports: weakness, unexplained weight loss (partially from abd taps & diuretics) . Denies: chills, diaphoresis, fever, malaise. EENTM: Reports: icterus. Denies: blurred vision, double vision, visual changes, eye pain, eye drainage, eye tearing, ear discharge, ear pain, ear redness, hearing changes, nasal congestion, epistaxis, nasal pain, throat pain, throat swelling, mouth pain, tooth pain. Cardiovascular: Reports: peripheral edema. Denies: chest pain, edema, orthopena, palpitations, syncope. Respiratory: Denies: cough, hemoptysis, orthopnea, short of breath, sputum production, stridor, wheezing. GI: Reports: bloody stool (RT proctitis). Denies: abdominal pain, bloating, constipation, diarrhea, distention, bowel incontinence, melena, nausea, changes in stool, vomiting, steatorrhea. Genitourinary: Denies: discharge, dysuria, frequency, hematuria, hesitation, nocturia, pain, urgency. Musculoskeletal: Reports: back pain. Denies: gout, joint pain, joint swelling, muscle pain, muscle stiffness, neck pain. Skin: Denies: cysts, change in skin color, change in hair/nails, dryness, erythema, jaundice, lesions, lymphangitis, lumps, moles, rash. Neurological/Psychological: Denies: anxiety, ataxia, cognitive dysfunction, confusion, depressed, dementia, emotional problems, headache, numbness, paresthesia, pre-existing deficit, petit mal seizures, tingling, tremors, tonic-clonic seizures, unable to move lower ext , unable to move upper ext, weakness, other. Hematologic/Endocrine: Denies: bruising, bleeding, polyuria, polydipsia. Immunologic/Allergic: Denies: see HPI, splenectomy, HIV/AIDS, lymphadenopathy. All Other Systems: Reviewed and Negative Objective Vital Signs and I&Os Vital Signs Date Time Temp Pulse Resp B/P B/P Pulse O2 O2 Flow FiO2 Mean Ox Delivery Rate 10/23 1003 67 10/23 0700 97.8 90 20 111/63 99 Room Air 10/22 2247 98.2 100 19 112/58 100 Room Air 10/22 2116 1125/58 10/22 2035 79 110/68 10/22 1845 98.0 108 19 98/60 100 Room Air 10/22 1637 97.5 88 20 102/62 99 Room Air 10/22 1626 98.3 92 20 109/53 98 Room Air 10/22 1350 88 16 104/70 98 Room Air Intake & Output 10/23 1600 10/23 0400 10/22 1600 10/22 0400 10/21 1600 10/21 0400 Intake Total 200 Output Total 120 150 Balance -120 50 Intake, IV 200 Output, Urine 120 150 Patient 176 lb 210 lb Weight Weight Bed scale Estimated Measurement Method Physical Exam: Well-developed, chronically ill appearing, somewhat malnourished, elderly male, with some muscle wasting, in no apparent distress. Sclera mildly icteric. Conjunctiva pink. Oropharynx clear. Poor dentition. No oral thrush. No aphthous ulcers. There is no adenopathy, thyromegaly, or JVD. No peripheral stigmata of inflammatory bowel disease on exam. Scant gynecomastia B/L, without masses or D /C, faint spider anterior chest wall, & scant ascites (post abd tap). No CVA tenderness. No definite point spine tenderness. Dextroscoliosis lower L-spine. Deformed right clavicle, post old fx. Lungs: clear to A&P, with slight decreased BS at the bases B/L. Heart exam: irregularly irregular rate rhythm, S1 and S2, without any murmur. Abdominal exam: normal bowel sounds, softer belly (post tap) , nontender, without guarding or rebound. Large partially reducible non-tender left scrotal mass/LIH, otherwise, no mass. Liver approximately 9 cm by percussion. No splenomegaly. Negative Devine sign.*Mild fluid fluid shift (post tap). No pulsatile mass. No epigastric bruit. Digital rectal exam: deferred by patient. [Previous digital rectal exam 09/04/16: light brown stool, OB-negative, without fresh blood, normal sphincter tone, smooth mildly enlarged prostate without nodule, no mass, no external hemorrhoid or fissure (rectal exam was also done at the 09/10/16: colonoscopy)]. Extremities: without cyanosis or clubbing. < 1+ pedal edema of the LE B/L. Right knee scar. No palpable cords. + DJD. No rash. Distal pulses 1+ bilaterally. DTRs 1+ bilaterally. No palmar erythema. No Dupuytren's contractures. Alert and oriented x 3. Scant tremor. No asterixis. No definite signs of cord compression on limited neurologic exam. Motor 4/5 B/L. Current Medications: Current Medications Sig/Quinton Start time Last Medication Dose Route Stop Time Status Admin Acetaminophen 650 MG Q8P PRN 10/22 1545 AC 10/23 PO 1047 Albumin Human 25 GM Q8 10/22 2200 AC 10/23 IV 0532 Albumin Human 25 GM ONCE ONE 10/22 1630 DC 10/22 IV 10/22 1631 1718 Albumin Human 12.5 GM ONCE ONE 10/22 1600 DC 10/22 IV 10/22 1601 1627 Ceftriaxone Sodium 0 .STK-MED ONE 10/22 1559 DC .ROUTE Ceftriaxone Sodium 1,000 MG ONCE ONE 10/22 1415 DC 10/22 IV 10/22 1416 1604 Heparin Sodium 5,000 UNIT Q8 10/23 0600 DC 10/23 (Porcine) SC 0532 Hydromorphone HCl 0.5 MG Q8P PRN 10/22 1600 AC 10/23 IV 0532 Mesalamine 1,000 MG AT BEDTIME 10/22 2200 AC LA Metoprolol Succinate 50 MG DAILY 10/22 1606 AC 10/23 PO 1003 Metronidazole 500 MG ONCE ONE 10/22 1415 DC N/A 1 UNIT IV 10/22 1514 Ondansetron HCl 4 MG Q6P PRN 10/22 1600 AC IV Pantoprazole Sodium 0 .STK-MED ONE 10/22 1702 DC IV Pantoprazole Sodium 40 MG DAILY 10/22 1606 AC 10/23 IV 1003 Sodium Chloride 1,000 ML Q13H 10/22 1630 DC 10/22 IV 10/23 0529 1842 Sodium Chloride 1,000 ML BOLUS ONE 10/22 1445 DC 10/22 IV 10/22 1544 1604 Results Pertinent Lab Results: Laboratory Tests 10/23 10/22 0725 2100 Chemistry Sodium (137 - 145 mmol/L) 144 Potassium (3.5 - 5.1 mmol/L) 4.3 Chloride (98 - 107 mmol/L) 110 H Carbon Dioxide (22 - 30 mmol/L) 21 L Anion Gap (5 - 16) 13 BUN (9 - 20 mg/dL) 50 H Creatinine (0.7 - 1.2 mg/dL) 1.6 H Estimated GFR (>60 ml/min) 42 L BUN/Creatinine Ratio (7 - 25 %) 31.3 H Lactic Acid (0.7 - 2.1 mmol/L) 1.5 Hematology CBC w Diff NO MAN DIFF REQ WBC (4.8 - 10.8 /CUMM) 14.9 H RBC (4.70 - 6.10 /CUMM) 2.71 L Hgb (14.0 - 18.0 G/DL) 8.5 L Hct (42 - 52 %) 25.9 L MCV (80.0 - 94.0 FL) 95.6 H MCH (27.0 - 31.0 PG) 31.4 H RDW (11.5 - 14.5 %) 15.6 H Plt Count (130 - 400 /CUMM) 109 L MPV (7.4 - 10.4 FL) 10.0 Gran % (42.2 - 75.2 %) 82.5 H Lymphocytes % (20.5 - 51.1 %) 8.6 L Monocytes % (1.7 - 9.3 %) 8.5 Eosinophils % (0 - 5 %) 0.2 Basophils % (0.0 - 2.0 %) 0.2 Absolute Granulocytes (1.4 - 6.5 /CUMM) 12.3 H Absolute Lymphocytes (1.2 - 3.4 /CUMM) 1.3 Absolute Monocytes (0.10 - 0.60 /CUMM) 1.3 H Absolute Eosinophils (0.0 - 0.7 /CUMM) 0 Absolute Basophils (0.0 - 0.2 /CUMM) 0 PUBS MCHC (33.0 - 37.0 G/DL) 32.9 L Urines Urine Color (YEL,AMB,STR) ORANG H Urine Clarity (CLEAR) CLDY H Urine pH (5.0 - 8.0) 5.0 Ur Specific Heppner (1.001 - 1.035) 1.025 Urine Protein (NEG,<30 MG/DL) 30 H Urine Ketones (NEG) TRACE H Urine Nitrite (NEG) POS H Urine Bilirubin (NEG) POS@ICTO H Urine Urobilinogen (0.1 - 1.0 EU/dl) 1.0 Ur Leukocyte Esterase (NEG) NEG Ur Microscopic SEDIMENT EXAMINED Urine RBC (0 - 5 /HPF) 1-3 Urine WBC (0 - 2 /HPF) 3-5 H Urine Bacteria (NEG/NONE) FEW H Hyaline Casts (0/LPF) 15-25 H Urine Hemoglobin (NEG) NEG Urine Glucose (N MG/DL) NEG 10/22 10/22 10/22 10/22 10/22 1903 1402 1200 1149 0930 Chemistry Lactic Acid (0.7 - 2.1 mmol/L) 2.3 H 3.1 H 3.6 H Hematology Lymphocytes (%) 14 % Normal PMNs (%) 1 Misc Hematology Test (%) 85 Other Body Source Fluid WBC (0 - 5 /CUMM) 22 H Fld Total RBCs Counted (0 /CUMM) 11 H Fluid Total Protein (g/dL) < 2.0 Fluid Albumin (g/dL) < 1.0 10/22 10/22 0917 0848 Chemistry Sodium (137 - 145 mmol/L) 141 Potassium (3.5 - 5.1 mmol/L) 4.6 Chloride (98 - 107 mmol/L) 108 H Carbon Dioxide (22 - 30 mmol/L) 23 Anion Gap (5 - 16) 11 BUN (9 - 20 mg/dL) 46 H Creatinine (0.7 - 1.2 mg/dL) 1.8 H Estimated GFR (>60 ml/min) 36 L BUN/Creatinine Ratio (7 - 25 %) 25.6 H Glucose (65 - 99 mg/dL) 147 H Calcium (8.4 - 10.2 mg/dL) 9.1 Total Bilirubin (0.2 - 1.3 mg/dL) 2.8 H Direct Bilirubin (< 0.4 mg/dL) 0.8 H AST (17 - 59 U/L) 45 ALT (21 - 72 U/L) 29 Alkaline Phosphatase (< 127 U/L) 114 Ammonia (9 - 30 umol/L) 14 Troponin I (<0.11 ng/ml) < 0.01 Total Protein (6.3 - 8.2 g/dL) 6.4 Albumin (3.5 - 5.0 g/dL) 2.7 L Globulin (1.9 - 4.2 gm/dL) 3.7 Albumin/Globulin Ratio (1.1 - 2.2 %) 0.7 L Coagulation PT (9.4 - 12.5 SEC) 13.9 H INR (0.90 - 1.17) 1.33 H APTT (25 - 37 SEC) 37 Hematology CBC w Diff NO MAN DIFF REQ WBC (4.8 - 10.8 /CUMM) 13.1 H RBC (4.70 - 6.10 /CUMM) 3.29 L Hgb (14.0 - 18.0 G/DL) 10.4 L Hct (42 - 52 %) 31.0 L MCV (80.0 - 94.0 FL) 94.2 H MCH (27.0 - 31.0 PG) 31.6 H RDW (11.5 - 14.5 %) 15.5 H Plt Count (130 - 400 /CUMM) 170 MPV (7.4 - 10.4 FL) 8.7 Gran % (42.2 - 75.2 %) 82.6 H Lymphocytes % (20.5 - 51.1 %) 5.9 L Monocytes % (1.7 - 9.3 %) 10.4 H Eosinophils % (0 - 5 %) 0.1 Basophils % (0.0 - 2.0 %) 1.0 Absolute Granulocytes (1.4 - 6.5 /CUMM) 10.8 H Absolute Lymphocytes (1.2 - 3.4 /CUMM) 0.8 L Absolute Monocytes (0.10 - 0.60 /CUMM) 1.4 H Absolute Eosinophils (0.0 - 0.7 /CUMM) 0 Absolute Basophils (0.0 - 0.2 /CUMM) 0.1 PUBS MCHC (33.0 - 37.0 G/DL) 33.5 Urines Urine Color Cancelled Urine Clarity Cancelled Urine pH Cancelled Ur Specific Heppner Cancelled Urine Protein Cancelled Urine Ketones Cancelled Urine Nitrite Cancelled Urine Bilirubin Cancelled Urine Urobilinogen Cancelled Ur Leukocyte Esterase Cancelled Ur Microscopic Cancelled Urine Hemoglobin Cancelled Urine Glucose Cancelled Imaging/Other Studies: 10/22/17: EKG- afib @ 94, low voltage throughout, borderline diffuse T wave abnormalities throughout, borderline prolonged QT interval. 10/22/17: CT ABDOMEN AND PELVIS WITHOUT IV CONTRAST (low GFR)- There is a large volume of intra-abdominal and intrapelvic ascites, extending into a sizable left inguinal hernia; the hernia also contains fat & a loop of nondistended sigmoid colon. No bowel obstruction. Few colonic diverticula without diverticulitis. The liver is shrunken and nodular, compatible with the history of cirrhosis. No obvious HCC or pancreatic lesion (within the limits of a non-IV contrast study). Normal GB. No ductal dilatation. Calcified aorta without AAA. Fibrotic changes at lung bases peripherally. No infiltrate. Coronary artery calcification. No retroperitoneal bleed. Lower lumbar dextroscoliosis. 10/22/17: XR PORTABLE CHEST- 1. No evidence of acute pulmonary process on this limited examination. Chronic right clavicular fracture. 2. Chronic appearing changes of the lungs, better described on the recent chest CT from 07/21/2017 suggesting chronic lung disease. 10/22/17: US-PARACENTESIS (by IR)- 7.5 L of clear yellow fluid was aspirated before drainage ceased.
--- NOTE | 2017-10-23 12:50 | Cons- Nephrology ---
General Information and HPI Consulting Request Date of Consult: 10/23/17 Requested By: Umm SINGH,Tierra Mathew Reason for Consult: JAIMIE History of Present Illness: 82 yo male with history of alcoholic cirrhosis, DM, HTN. He has had progessive edema and ascites over past 6 months. He had large volume paracentesis in July. Renal function was normal early in 2016 but on blood wokr done mid September, creatinine was near 2. He was on spironolactone/Lasix/ACEI which were all stopped. He was admitted to the hospital yesterday because of progressive ascites and back pain. Creatinin was 1.8. He had a 7 liter paracentes covered with SPA. No obvious SBP. I am asked to see the patient because of the renal failure. Allergies/Medications Allergies: Coded Allergies: NO KNOWN ALLERGIES (NONE 10/22/17) Home Med List: Furosemide 40 MG TABLET 1 TAB PO DAILY CARDIAC (Reported) Latanoprost (Xalatan) 0.005 % DROPS 1 GTT OPH QPM OPTHALOMIC (Reported) Metoprolol Succinate 50 MG TAB.ER.24H 1 TAB PO DAILY HTN (Reported) Pantoprazole Sodium 40 MG TABLET.DR 1 TAB PO DAILY GERD (Reported) Simvastatin (Simvastatin*) 20 MG TABLET 1 TAB PO QPM CHOLESTEROL (Reported) Spironolactone 50 MG TABLET 1 TAB PO DAILY U (Reported) Current Medications: Current Medications Sig/Quinton Start time Last Medication Dose Route Stop Time Status Admin Acetaminophen 650 MG Q8P PRN 10/22 1545 AC 10/23 PO 1047 Albumin Human 25 GM Q8 10/22 2200 AC 10/23 IV 0532 Albumin Human 25 GM ONCE ONE 10/22 1630 DC 10/22 IV 10/22 1631 1718 Albumin Human 12.5 GM ONCE ONE 10/22 1600 DC 10/22 IV 10/22 1601 1627 Ceftriaxone Sodium 0 .STK-MED ONE 10/22 1559 DC .ROUTE Ceftriaxone Sodium 1,000 MG ONCE ONE 10/22 1415 DC 10/22 IV 10/22 1416 1604 Heparin Sodium 5,000 UNIT Q8 10/23 0600 DC 10/23 (Porcine) SC 0532 Hydromorphone HCl 0.5 MG Q8P PRN 10/22 1600 AC 10/23 IV 0532 Mesalamine 1,000 MG AT BEDTIME 10/22 2200 AC NV Metoprolol Succinate 50 MG DAILY 10/22 1606 AC 10/23 PO 1003 Metronidazole 500 MG ONCE ONE 10/22 1415 DC N/A 1 UNIT IV 10/22 1514 Ondansetron HCl 4 MG Q6P PRN 10/22 1600 AC IV Pantoprazole Sodium 0 .STK-MED ONE 10/22 1702 DC IV Pantoprazole Sodium 40 MG DAILY 10/22 1606 AC 10/23 IV 1003 Sodium Chloride 1,000 ML Q13H 10/22 1630 DC 10/22 IV 10/23 0529 1842 Sodium Chloride 1,000 ML BOLUS ONE 10/22 1445 DC 10/22 IV 10/22 1544 1604 Review of Systems Review of Systems: Negative except as noted abovde. 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 , Age 60+; Cause: Myocardial infarct. MOTHER, , Age 60+; Cause: Unknown cause of morbidity or mortality. PATERNAL FEMALE COUSIN (Crohn's disease). Psychosocial History Where Do You Live? Home Who Do You Live With? spouse (Blossom) Services at Home: None Primary Language: Sami Smoking Status: Former Smoker ETOH Use: alcoholic (D/C 07/25/17) Illicit Drug Use: denies illicit drug use Living Will? yes Power of Export Sales Assistant/HCP? yes Name of POA/HCP: pt's , Blossom Hodges Other Social History: . Lives with , Blossom. Alcoholic x years, D/C 07/25/17. Ex-15 pk yr cigarette smoker, D/C 1989. No illicit drugs. 2 sons & 1 dtr- [employer]. 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 Uses cane. Functional Ability ADLs Independent: eating. Needs Assist: dressing, toileting, bathing. 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 Needs Assist: shopping, housework, finances, food prep, transportation, medication admin. 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 Exam & Diagnostic Data Vital Signs and I&O Vital Signs Date Time Temp Pulse Resp B/P B/P Pulse O2 O2 Flow FiO2 Mean Ox Delivery Rate 10/23 1003 67 10/23 0700 97.8 90 20 111/63 99 Room Air 10/22 2247 98.2 100 19 112/58 100 Room Air 10/22 2116 1125/58 10/22 2035 79 110/68 10/22 1845 98.0 108 19 98/60 100 Room Air 10/22 1637 97.5 88 20 102/62 99 Room Air 10/22 1626 98.3 92 20 109/53 98 Room Air 10/22 1350 88 16 104/70 98 Room Air Intake & Output 10/23 1600 10/23 0400 10/22 1600 10/22 0400 10/21 1600 10/21 0400 Intake Total 200 Output Total 120 150 Balance -120 50 Intake, IV 200 Output, Urine 120 150 Patient 176 lb 210 lb Weight Weight Bed scale Estimated Measurement Method Physical Exam: NAD VS as above Eyes: anicteric, PERRLA Neck: no mass or thryomegally Nodes: negative cervical/inguinal Skin: no rash or induration lungs: clear P&A CV:no rub or murmur Abd: distended, non-tender, without organomegally, BS positive Exts: 2+ pretibial edema Neuro: A&O, CNI, no asterixis. Results Pertinent Lab Results: Laboratory Tests 10/23 10/22 0725 2100 Chemistry Sodium (137 - 145 mmol/L) 144 Potassium (3.5 - 5.1 mmol/L) 4.3 Chloride (98 - 107 mmol/L) 110 H Carbon Dioxide (22 - 30 mmol/L) 21 L Anion Gap (5 - 16) 13 BUN (9 - 20 mg/dL) 50 H Creatinine (0.7 - 1.2 mg/dL) 1.6 H Estimated GFR (>60 ml/min) 42 L BUN/Creatinine Ratio (7 - 25 %) 31.3 H Lactic Acid (0.7 - 2.1 mmol/L) 1.5 Hematology CBC w Diff NO MAN DIFF REQ WBC (4.8 - 10.8 /CUMM) 14.9 H RBC (4.70 - 6.10 /CUMM) 2.71 L Hgb (14.0 - 18.0 G/DL) 8.5 L Hct (42 - 52 %) 25.9 L MCV (80.0 - 94.0 FL) 95.6 H MCH (27.0 - 31.0 PG) 31.4 H RDW (11.5 - 14.5 %) 15.6 H Plt Count (130 - 400 /CUMM) 109 L MPV (7.4 - 10.4 FL) 10.0 Gran % (42.2 - 75.2 %) 82.5 H Lymphocytes % (20.5 - 51.1 %) 8.6 L Monocytes % (1.7 - 9.3 %) 8.5 Eosinophils % (0 - 5 %) 0.2 Basophils % (0.0 - 2.0 %) 0.2 Absolute Granulocytes (1.4 - 6.5 /CUMM) 12.3 H Absolute Lymphocytes (1.2 - 3.4 /CUMM) 1.3 Absolute Monocytes (0.10 - 0.60 /CUMM) 1.3 H Absolute Eosinophils (0.0 - 0.7 /CUMM) 0 Absolute Basophils (0.0 - 0.2 /CUMM) 0 PUBS MCHC (33.0 - 37.0 G/DL) 32.9 L Urines Urine Color (YEL,AMB,STR) ORANG H Urine Clarity (CLEAR) CLDY H Urine pH (5.0 - 8.0) 5.0 Ur Specific Sprague (1.001 - 1.035) 1.025 Urine Protein (NEG,<30 MG/DL) 30 H Urine Ketones (NEG) TRACE H Urine Nitrite (NEG) POS H Urine Bilirubin (NEG) POS@ICTO H Urine Urobilinogen (0.1 - 1.0 EU/dl) 1.0 Ur Leukocyte Esterase (NEG) NEG Ur Microscopic SEDIMENT EXAMINED Urine RBC (0 - 5 /HPF) 1-3 Urine WBC (0 - 2 /HPF) 3-5 H Urine Bacteria (NEG/NONE) FEW H Hyaline Casts (0/LPF) 15-25 H Urine Hemoglobin (NEG) NEG Urine Glucose (N MG/DL) NEG 10/22 10/22 10/22 10/22 10/22 1903 1402 1200 1149 0930 Chemistry Lactic Acid (0.7 - 2.1 mmol/L) 2.3 H 3.1 H 3.6 H Hematology Lymphocytes (%) 14 % Normal PMNs (%) 1 Misc Hematology Test (%) 85 Other Body Source Fluid WBC (0 - 5 /CUMM) 22 H Fld Total RBCs Counted (0 /CUMM) 11 H Fluid Total Protein (g/dL) < 2.0 Fluid Albumin (g/dL) < 1.0 10/22 10/22 0917 0848 Chemistry Sodium (137 - 145 mmol/L) 141 Potassium (3.5 - 5.1 mmol/L) 4.6 Chloride (98 - 107 mmol/L) 108 H Carbon Dioxide (22 - 30 mmol/L) 23 Anion Gap (5 - 16) 11 BUN (9 - 20 mg/dL) 46 H Creatinine (0.7 - 1.2 mg/dL) 1.8 H Estimated GFR (>60 ml/min) 36 L BUN/Creatinine Ratio (7 - 25 %) 25.6 H Glucose (65 - 99 mg/dL) 147 H Calcium (8.4 - 10.2 mg/dL) 9.1 Total Bilirubin (0.2 - 1.3 mg/dL) 2.8 H Direct Bilirubin (< 0.4 mg/dL) 0.8 H AST (17 - 59 U/L) 45 ALT (21 - 72 U/L) 29 Alkaline Phosphatase (< 127 U/L) 114 Ammonia (9 - 30 umol/L) 14 Troponin I (<0.11 ng/ml) < 0.01 Total Protein (6.3 - 8.2 g/dL) 6.4 Albumin (3.5 - 5.0 g/dL) 2.7 L Globulin (1.9 - 4.2 gm/dL) 3.7 Albumin/Globulin Ratio (1.1 - 2.2 %) 0.7 L Coagulation PT (9.4 - 12.5 SEC) 13.9 H INR (0.90 - 1.17) 1.33 H APTT (25 - 37 SEC) 37 Hematology CBC w Diff NO MAN DIFF REQ WBC (4.8 - 10.8 /CUMM) 13.1 H RBC (4.70 - 6.10 /CUMM) 3.29 L Hgb (14.0 - 18.0 G/DL) 10.4 L Hct (42 - 52 %) 31.0 L MCV (80.0 - 94.0 FL) 94.2 H MCH (27.0 - 31.0 PG) 31.6 H RDW (11.5 - 14.5 %) 15.5 H Plt Count (130 - 400 /CUMM) 170 MPV (7.4 - 10.4 FL) 8.7 Gran % (42.2 - 75.2 %) 82.6 H Lymphocytes % (20.5 - 51.1 %) 5.9 L Monocytes % (1.7 - 9.3 %) 10.4 H Eosinophils % (0 - 5 %) 0.1 Basophils % (0.0 - 2.0 %) 1.0 Absolute Granulocytes (1.4 - 6.5 /CUMM) 10.8 H Absolute Lymphocytes (1.2 - 3.4 /CUMM) 0.8 L Absolute Monocytes (0.10 - 0.60 /CUMM) 1.4 H Absolute Eosinophils (0.0 - 0.7 /CUMM) 0 Absolute Basophils (0.0 - 0.2 /CUMM) 0.1 PUBS MCHC (33.0 - 37.0 G/DL) 33.5 Urines Urine Color Cancelled Urine Clarity Cancelled Urine pH Cancelled Ur Specific Sprague Cancelled Urine Protein Cancelled Urine Ketones Cancelled Urine Nitrite Cancelled Urine Bilirubin Cancelled Urine Urobilinogen Cancelled Ur Leukocyte Esterase Cancelled Ur Microscopic Cancelled Urine Hemoglobin Cancelled Urine Glucose Cancelled Assessment/Plan Assessment/Recommendations Assessment: Patietn with JAIMIE which may be on the basis of hepatorenal syndrome. Not volume depleted on exam, BP sliglty low for gentleman with history of htn, but probably due to liver disease. Has mininimal dipstick proteinuria. CT scan yesterdays shows normal kidneys. Recommendations: Await Justus and U cr although expect they will be low. Would continue him on SPA 25 gm q 8 hrs. Daily labs. Would check U pr/cr. Already knonw to be hep C and hep B negative so no need to repeat. Avoid diuretics for now, will follow.
[2017-10-23 14:38] VITALS: BP 98/58
[2017-10-23 22:01] VITALS: BP 100/60
[2017-10-24 06:56] VITALS: BP 100/60
[2017-10-24 08:28] LABS: ABSOLUTE BASOPHIL COUNT 0 /CUMM (0.0-0.2); ABSOLUTE EOSINOPHIL COUNT 0.1 /CUMM (0.0-0.7); ABSOLUTE GRANULOCYTE CT 10.7 /CUMM (1.4-6.5); ABSOLUTE LYMPH COUNT 1.4 /CUMM (1.2-3.4); ABSOLUTE MONOCYTE COUNT 1.3 /CUMM (0.10-0.60); BASOPHIL % 0.2 % (0.0-2.0); EOSINOPHIL % 0.9 % (0-5); GRANULOCYTE % 79.1 % (42.2-75.2); HEMATOCRIT 25.4 % (42-52); MEAN CORPUSCULAR HGB 31.9 PG (27.0-31.0); MEAN CORPUSCULAR HGB CONC 33.4 G/DL (33.0-37.0); MEAN CORPUSCULAR VOLUME 95.6 FL (80.0-94.0); MEAN PLATELET VOLUME 9.3 FL (7.4-10.4); PLATELET COUNT 126 /CUMM (130-400); RBC DISTRIBUTION WIDTH 16.2 % (11.5-14.5); RED BLOOD CELL CT 2.66 /CUMM (4.70-6.10); WHITE BLOOD CELL COUNT 13.6 /CUMM (4.8-10.8)
--- NOTE | 2017-10-24 09:20 | PN- Housestaff ---
Assessment/Plan Assessment: 82 yo man with a PMHx. of HTN ,HLD, borderline DM, paroxysmal A.fib not on AC 2/ 2 GI bleed, Hx. of prostate cancer, alcohol related cirrhosis with recent decompensation 2 months ago after presenting with ascites and undergoing paracentesis in the GI office presented to the emergency room with a complaints of severe back pain, weakness, and inability to get out of bed. Cirrhosis with ascites: Diagnostic and therapeutic paracentesis performed 7.5 L of fluid removed Ascitic fluid analysis no evidence of spontaneous bacterial peritonitis Monitor off antibiotics Gastroenterology consultation 25% albumin Q8H Trend lactic acid Avoid NSAIDs, duodenal ulcer on EGD, negative for varices Limit tylenol Follow up GI recommendations History off rectal bleeding, radiation proctitis, and duodenoal ulcer Off anticoagulation for atrial fibrillation for the above reasons, increased stroke risk Last alcohol intake 07/25/17 JAIMIE: Continue to hold furosemide, ACEi, and spironolactone Nephrology consulted, follow up their recommendations Trial of albumin 25g IV Q8H Avoid NSAIDs, nephrotoxic agents Trend renal function Check urinalysis and urine electrolytes Atrial fibrillation: Continue metoprolol No anticoagulation Weakness: Physical therapy evaluation Heart healthy diet-2gram sodium restriction DVT ppx-lovenox 40mg subcutaneous daily DNR/DNI
--- NOTE | 2017-10-24 10:24 | PN- Att Addend ---
Attending Addendum Attending Brief Note Patient seen and examined. He feels weak. He has chronic back pain. On exam BP is on the low side at 100/60, pulse rate is 78, breathing at 16-18 and afebrile Lungs have decreased breath sounds bilaterally, heart is S1-S2 is regular, abdomen is distended with ascites. BUN is 52 creatinine is 2 and the white count remains elevated. He is an 82- year-old with A. fib not on anticoagulation due to high bleeding risk given cirrhosis and large duodenal ulcer. He is here with decompensated cirrhosis and 7.5 L of ascitic fluid was taken out on October 22. He also has JAIMIE and renal feels this is likely hepatorenal syndrome. I am giving him IV albumin and following closely. We have all diuretics on hold.
--- NOTE | 2017-10-24 12:06 | PN- Housestaff ---
See Addendum Subjective Follow-up For: ascites, cirrhosis JAIMIE weakness back pain weight loss Subjective: No overnighte event. Patient had difficulty hearing but was eating her breakfast and had no specific complaint. Review of Systems Constitutional: Reports: see HPI. Objective Last 24 Hrs of Vital Signs/I&O Vital Signs Date Time Temp Pulse Resp B/P B/P Pulse O2 O2 Flow FiO2 Mean Ox Delivery Rate 10/24 0908 100/60 10/24 0656 98.2 75 20 100/60 97 10/23 2201 98.0 68 19 100/60 97 Room Air 10/23 1438 97.9 65 20 98/58 97 Room Air Intake & Output 10/24 1600 10/24 0800 10/24 0000 Intake Total 220 450 Output Total 200 250 Balance 20 200 Intake, IV 100 100 Intake, Oral 120 350 Output, Urine 200 250 Physical Exam General Appearance: Alert, Oriented X3, Cooperative, No Acute Distress Cardiovascular: Regular Rate Lungs: Clear to Auscultation, Normal Air Movement Abdomen: Normal Bowel Sounds, Soft, Distended 2/2 ascites, large left scrotal hernia Neurological: Normal Speech Extremities: No Edema Current Medications: Current Medications Sig/Quinton Start time Last Medication Dose Route Stop Time Status Admin Acetaminophen 650 MG .STK-MED ONE 10/23 2000 DC PO 10/23 2001 Acetaminophen 650 MG Q8P PRN 10/22 1545 AC 10/23 PO 2030 Albumin Human 25 GM Q8 10/220 AC 10/24 IV 0609 Hydromorphone HCl 0.5 MG Q8P PRN 10/22 1600 AC 10/24 IV 1134 Mesalamine 1,000 MG AT BEDTIME 10/22 2200 AC NJ Metoprolol Succinate 50 MG DAILY 10/22 1606 AC 10/24 PO 0908 Omeprazole 40 MG BID 10/23 2200 AC 10/24 PO 0908 Ondansetron HCl 4 MG Q6P PRN 10/22 1600 AC IV Pantoprazole Sodium 40 MG DAILY 10/22 1606 DC 10/23 IV 1003 Last 24 Hrs of Lab/Natan Results Last 24 Hrs of Labs/Mics: Laboratory Tests 10/24/17 0737: Anion Gap 10, Estimated GFR 32 L, BUN/Creatinine Ratio 26.0 H, CBC w Diff NO MAN DIFF REQ, RBC 2.66 L, MCV 95.6 H, MCH 31.9 H, RDW 16.2 H, MPV 9.3, Gran % 79.1 H, Lymphocytes % 10.1 L, Monocytes % 9.7 H, Eosinophils % 0.9, Basophils % 0.2, Absolute Granulocytes 10.7 H, Absolute Lymphocytes 1.4, Absolute Monocytes 1.3 H, Absolute Eosinophils 0.1, Absolute Basophils 0, PUBS MCHC 33.4 10/24/17 0200: Urinalysis LIGHT H, Urine Color ORANG H, Urine Clarity CLEAR, Urine pH 5.0, Ur Specific Ovid >= 1.030, Urine Protein 30 H, Urine Ketones TRACE H, Urine Nitrite POS H, Urine Bilirubin NEG@ICTO, Urine Urobilinogen 1.0, Ur Leukocyte Esterase NEG, Ur Microscopic SEDIMENT EXAMINED, Urine RBC RARE, Ur Epithelial Cells RARE, Urine Bacteria FEW H, Hyaline Casts FEW H, Urine Hemoglobin NEG, Urine Glucose NEG 10/24/17 0200: Ur Random Creatinine 263.4, Ur Random Sodium 6 L, Ur Random Potassium 53.4, Fraction Sodium Excret 0.0 Assessment/Plan Assessment: 82 yo man with a PMHx. of HTN ,HLD, borderline DM, paroxysmal A.fib not on AC 2/ 2 GI bleed, Hx. of prostate cancer, alcohol related cirrhosis with recent decompensation 2 months ago after presenting with ascites and undergoing paracentesis in the GI office presented to the emergency room with a complaints of severe back pain, weakness, and inability to get out of bed. Cirrhosis with ascites: Diagnostic and therapeutic paracentesis performed 7.5 L of fluid removed Ascitic fluid analysis no evidence of spontaneous bacterial peritonitis Monitor off antibiotics Gastroenterology consultation 25% albumin Q8H lactic acid 1.5 on latest lab Avoid NSAIDs, duodenal ulcer on EGD, negative for varices Limit tylenol Follow up GI recommendations History off rectal bleeding, radiation proctitis, and duodenoal ulcer Off anticoagulation for atrial fibrillation for the above reasons, increased stroke risk Last alcohol intake 07/25/17 JAIMIE: Continue to hold furosemide, ACEi, and spironolactone Nephrology consulted, follow up their recommendations Trial of albumin 25g IV Q8H Avoid NSAIDs, nephrotoxic agents FENa close to 0 on latest urine lab UA +ve nitrites -ve LE unchanged from last UA. Atrial fibrillation: Continue metoprolol No anticoagulation Weakness: Physical therapy evaluation Heart healthy diet-2gram sodium restriction DVT ppx-lovenox 40mg subcutaneous daily DNR/DNI Problem List: 1. ARF (acute renal failure) 2. Radiation proctitis 3. Ascites 4. Cirrhosis Pain Ratin Pain Location: Back Pain Goal: Pain 4 or less Pain Plan: see AP Tomorrow's Labs & Rationales: CBC/.BEp
--- NOTE | 2017-10-24 12:46 | PN- Gastroenterology ---
Assessment/Plan Assessment/Recommendations: 82-year-old male, followed by Dr. Hay for primary care, Dr. Salomon for cardiology, Dr. Edson Garcia for RT, & Dr. Duron, for urology, with a history of hypertension, hyperlipidemia, borderline diabetic, glaucoma, ex-15 pack year cigarette smoker stopped 1989, and history of alcohol abuse, consisting of > 3 drinks of vodka & 7-Up daily. He previously drank more years ago. He claimed to have last drank EtOH 07/25/17. Cirrhosis became evident when he presented with ascites in 07/2017. 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 He developed paroxysmal atrial fibrillation since. He was put on Xarelto by cardiology 08/25/16 Two days later, the patient developed painless BRBPR after defecation of brown stool, with bright red blood on the toilet paper, without any spontaneous lower GI bleeding or melena. Xarelto was held by cardiology 09/02/16, after the rectal bleeding occurred. Please note, 07/06/14: prostate biopsy- prostate adenocarcinoma, Toy 7. The patient was treated with external-beam radiation for 45 courses, completed 11/14/14. There was a questionable history of hemorrhoids. The patient did have loose stool on Fenofibrate, which was stopped 08/25/16, and the loose stools resolved. He did not use any NSAIDs or aspirin. He had no neurologic complaints. Please note, the patient has a past history of duodenal ulcer. 06/14/08: CT scan of the abdomen and pelvis with contrast- questionable gastric outlet obstruction. 07/03/2008: EGD- large friable 2 cm2 duodenal ulcer in the bulb, without any clot or visible vessel, with scarring of the bulb, patent pylorus, no gastric outlet obstruction, & *HP-negative gastritis on biopsy. The patient had been maintained on Omeprazole since, but may not have been fully compliant with this. 09/11/08: Followup EGD plus baseline colonoscopy to the cecum- healed duodenal ulcer, tiny hiatal hernia, Z-line at 41 cm, patent pylorus, no gastric outlet obstruction; moderate pandiverticulosis coli, L > R, removal of 4 mm sessile polyp base of appendix, showing focal adenoma. The patient was non- compliant with a followup surveillance colonoscopy advised for 5 years later, namely 08/2013. The patient had never been transfused. 09/10/16: Colonoscopy to the TI with multiple biopsies and multiple polypectomies (done at different sites)- extensive pandiverticulosis coli, L > R , fairly extensive RT proctitis, with oozing telangiectasia's to 10 cm (direct biopsies deferred), and removal of 9 benign sessile polyps, ranging in size from 5 mm - 1 cm (7 TA & 2 hyperplastic). A follow-up colonoscopy was advised in 3 years (i.e.- 08/2019), assuming it is warranted then by the risk:benefit ratio, keeping in mind the patient's advanced age and numerous comorbidities. The patient was put on Canasa suppository 1 g Qhs post colonoscopy, which worked well, and the patient stopped it on his own 4 months later, as he was asymptomatic. *Having stated that, Xarelto was resumed by cardiology on 10/05/16, but stopped by them 10/10/16, as the patient had recurrent rectal bleeding, despite the Canasa. 10/13/16: WBC 6.1, H/H 11.4/34.2, MCV 93.6, PLT 157. 11/05/16: K+ 4.3, Na 139, *BUN/Cr 16/0.9, GFR > 60. Anticoagulation therapy was currently on hold as per cardiology, regarding the rectal bleeding from his RT proctitis. The patient & his , Blossom, were aware that the risk of CVA off of anti-coagulation therapy has to be balanced with the risk of GI bleeding. I deferred to cardiology regarding other options of anticoagulation, such as the shorter acting Eliquis. If anticoagulation therapy was resumed, as the patient has had breakthrough rectal bleeding on Canasa suppositories when previously on Xarelto, other options could include local installation of formalin to treat the RT proctitis vs. mucosal stripping of the rectum, although the latter was a somewhat extreme measure. The patient's 07/03/08: duodenal ulcer was remote. *The patient was subsequently found to have a large recurrent DU via 10/12/17: EGD (see below), adding to the reasons not to resume A/C therapy. There were no varices or portal gastropathy then. Mr. Mark Anthony Hodges returned to the office 09/10/17, accompanied by his Blossom, previously here 03/12/17. He had numerous tests done since last here and was found to have cirrhosis, secondary to alcohol abuse. 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 He claimed he last drank EtOH "07/25/17." The patient saw Dr. Salomon 07/27/17 and was reported to be yellow, prompting the liver workup. 07/30/17: lipase 5, PT 12.6, INR 1.2, WBC 7.0, H/H 12.2/36.3, MCV 96.9, RDW 15.4 , PLT 194, glucose 138, BUN/Cr 33/1.29, GFR 52, Na 141, K 4.3, HCO3 24, AG 13, Ca 8.6, alb 2.9, glob 3.1, TBil 1.9, alk phos 130, AST 43, ALT 21, borderline T3RU 37, otherwise nl TFT with TSH 3.53, *MELD 13. 101: RUQ sono- Cirrhotic liver, no hepatoma, moderate to large ascites, CBD not seen, normal GB. 08/12/17: *Large volume tap by IR- 7.5L removed post 50g SPA, 29 RBC, 208 WBC, 1 % PMN (absolute # PMN = 2), *no SBP, BF prot < 2.0, BF alb < 1.0, high SAAG > 2.0, g stain , C&S- neg, cytology neg. 08/12/17: *Hep A Ab, Hep Bs Ag, Hep B core Ab, Hep C Ab- all neg; TRACEE- neg 1:40, AMA < 20, AFP 3.7, Fe 84, TIBC 233, Fe sat 36%, ferritin 305 *Lasix 40 mg daily had been prescribed PMD. *I added Aldactone 50 mg daily. He remained on Metopolol 50 mg daily, per cardiology. The cirrhosis was discussed with the patient and his , Blossom, in detail . This undoubtedly was from his alcohol abuse, which he allegedly stopped 07/25/17. Extensive serologies were negative. He was made aware that he needed periodic screening to rule out hepatoma. Because of his advanced age and recent alcohol abuse, he did not appear to be a candidate for liver transplant at this point. His last 07/30/17: MELD was relatively stable at 13. *At the patient's last GI OF of 09/10/17, I advised him to have an EGD to rule out varices and if present, would switch his Metoprolol to a non-selective beta paul. 10/08/17: random glu 119, *BUN/Cr 54/1.8, GFR 36 (*new), Na 141, K 4.5, HCO3 23, AG 13, Ca 9.1, alb 2.7, glob 4.0, TBil 2.3, DBil 1.0, alk phos 118, AST 47, ALT 23, Hep Bs Ab- neg (*not immune) *Lasix 40 mg daily, Aldactone 50 mg daily, & Benazepril 40 mg daily were all held after noting the 10/08/17: labs, due to low GFR. *The patient and his were repeatedly told to have the patient follow-up with his PMD and/or a sulfuric acid plant supervisor for his low GFR, but the patient never did so. 10/12/17: EGD w/biopsy to D2- Impression: 1. *No esophageal or gastric varices. *No portal gastropathy. 2. 2 cm sliding hernia pouch, from 40-42 cm. Z line at 40 cm. 3. *2 cm well circumscribed, clean-based duodenal ulcer in the bulb, without any active bleeding, with friable edges. There was no clot or visible vessel. Direct biopsies of the duodenal ulcer were deferred, as were therapeutics. 4. Random gastric biopsies: (Specimen A- antrum, Specimen B- fundus; rule out H. pylori), in view of large duodenal bulb ulcer. A. GASTRIC ANTRUM BIOPSY: MINIMAL TO MILD CHRONIC INFLAMMATION. *GIEMSA STAIN IS NEGATIVE FOR HELICOBACTER-TYPE STRUCTURES. NEGATIVE FOR EVIDENCE OF MALIGNANCY. B. GASTRIC FUNDUS BIOPSY: MINIMAL CHRONIC INFLAMMATION. *GIEMSA STAIN IS NEGATIVE FOR HELICOBACTER-TYPE STRUCTURES. NEGATIVE FOR EVIDENCE OF MALIGNANCY. Dictated by: Barbara SINGH,Nickolas Wilkins called the pt 10/15/17 at 5:35 P.M. at [phone], & spoke with him & his , *Blossom, regarding the benign HP-neg gastric bxs & his 10/15/17: labs. The patient was told in no uncertain terms to refrain from any aspirin or NSAIDs (which he was not taking). He allegedly last drink alcohol 07/25/17. He was a remote cigarette smoker. *He was told to increase Protonix (rxd postop) to 40 mg po BID, 1/2 hour before breakfast & supper. *Advise repeat EGD by the end of 2017, to reassess the huge duodenal bulb ulcer, and if it persists, will need direct biopsies and possible EUS (discussed with Mariza at my office, postop). * Lasix 40 mg daily, Aldactone 50 mg daily, & Benazepril 40 mg daily all recently held, due to low GFR. *They were not to be resumed, as repeat labs 10/15/17: * BUN/Cr 55/2.0, GFR 32, glucose 127, Na 142, K 4.3, HCO3 23, AG 13,Ca 8.9. I again told the pt & his to call their PMD & a sulfuric acid plant supervisor to workup his kidneys further. *Follow up with PMD for both Hep A and B vaccinations. *The patient was having vague aches and pains which appeared to be DJD in nature. The patient's was asking for analgesics, and I directed her to the patient' s PMD. *Limit Tylenol to < 2g daily. *Consideration for Ultram, dosing not to exceed 50 mg po BID as needed, with underlying cirrhosis. The patient and his , Blossom, were aware of the severe nature of the patient's illness with his underlying EtOH cirrhosis. Because of his advanced age and recent alcohol abuse , he did not appear to be a candidate for liver transplant at this point. *Agree with no further A/C tx re: hx PAF, with large DU, history of radiation proctitis , past history of lower GI bleeding, etc., along with the fact that he was in NSR as of 09/10/17. Limit Tylenol to < 2 g daily. Avoid hepatotoxins. 2 g Na+ diet. I advised an annual flu shot, which the patient did not want. I also told him he should have a Pneumovax if never obtained. I advised a follow-up GI visit in 3 months. He will need a repeat AFP and RUQ sono every 6 months for HCC surveillance, next due in 01/2018. One might consider follow-up surveillance colonoscopy in 08/2019 regarding his colon adenomas, but the overall risk: benefit ratio will have to be taken into account at that point, keeping in mind his advanced age and numerous comorbidities. He was advised to continue fiber supplements for his diverticular disease. He will follow-up with his numerous physicians. The patient's , Blossom, called me earlier this a.m, 10/22/17, stating that the patient had low back pain "10 out of 10" & could not get out of bed. He could not make it to his PMD regarding his low GFR. He was given Fentanyl 50 mcg by EMS TEXTILE MACHINE OPERATOR & sent to the [facility], where he arrived 10/22/17 at 8:36 a.m. Upon arrival, BP 104/57, P 112, R 16, T 98, O2 sat RA 96%. He was given 1L of NS in the ER, along with Dilaudid, Zofran, & empiric IV Ceftriaxone & IV Flagyl. The patient had a large volume ascitic tap by IR on admission, with 7.5L of clear, yellow ascites removed (*neg SBP, high SAAG, low protein), post 37.5g IV SPA. The patient claimed his low back pain just above the tailbone was subacute on chronic. He found it difficult to ambulate for the past day TEXTILE MACHINE OPERATOR. He had diffuse weakness, but had no signs or symptoms of cord compression. *Please note, 03/23/17: PSA < 0.00. He denied taking any aspirin or NSAIDs, but was taking Tylenol for his back pain. He was on Protonix 40 mg po BID as an outpt for his DU. He denied any nausea or vomiting (aside from dry heaves post Dilaudid for his back). He denied any odynophagia, dysphagia, hematemesis, melena, abdominal pain, CP, SOB, early satiety, diarrhea, constipation, obstipation, or tenesmus. He had occasional scant BRBPR on the toilet paper after defecation, which he attributed to his RT proctitis. He had stopped his Canasa suppositories a while ago, which previously helped these sx. He denied any fevers, chills, jaundice, dark urine, light stool, pruritus, confusion, symptoms of UTI, or URI. He had lost weight, exact amount unknown. Some of this was attributed to volume loss from abdominal taps, as his ascites related to his diuretics were held, due to low GFR. His appetite was fair & he had generalized weakness. Aside from a paternal female cousin having Crohn's disease, there was no family history of any additional GI disease, GI Ca, or inherited liver disease. 10/22/17: Admission labs- WBC 13.1 (83% gran/11 gran Ab), H/H 10.4/31, MCV 94.2, RDW 15.5, PLT 170, PT 13.9,INR 1.33, PTT 37, glucose 147, BUN/Cr 46/1.8, GFR 36, Na 141, K 4.6, HCO3 23, AG 11, *lactate 3.6-> 3.1, Ca 9.1, alb 2.7, glob 3.7, TBil 2.8, DBil 0.8, alk phos 114, AST 45, ALT 29, NH3 14, troponin < 0.01. 10/22/17: *Admission MELD 20. 10/22/17: 11 RBC, 22 WBC (1 PMN/14L/85 Meso-histio), *absolute # PMN 0.22 (*no SBP), BF protein < 2.0, BF albumin < 1.0, SAAG > 1.7 (*high SAAG, low prot), 10/22/17: BC x 2- neg. 10/22/17: Ascitic gram stain- no WBC, no organisms; ascitic culture- neg. 10/22/17: EKG- afib @ 94, low voltage throughout, borderline diffuse T wave abnormalities throughout, borderline prolonged QT interval. 10/22/17: CT ABDOMEN AND PELVIS WITHOUT IV CONTRAST (low GFR)- There is a large volume of intra-abdominal and intrapelvic ascites, extending into a sizable left inguinal hernia; the hernia also contains fat & a loop of nondistended sigmoid colon. No bowel obstruction. Few colonic diverticula without diverticulitis. The liver is shrunken and nodular, compatible with the history of cirrhosis. No obvious HCC or pancreatic lesion (within the limits of a non-IV contrast study). Normal GB. No ductal dilatation. Calcified aorta without AAA. Fibrotic changes at lung bases peripherally. No infiltrate. Coronary artery calcification. No retroperitoneal bleed. Lower lumbar dextroscoliosis. 10/22/17: XR PORTABLE CHEST- 1. No evidence of acute pulmonary process on this limited examination. Chronic right clavicular fracture. 2. Chronic appearing changes of the lungs, better described on the recent chest CT from 07/21/2017 suggesting chronic lung disease. 10/22/17: US-PARACENTESIS (by IR)- 7.5 L of clear yellow fluid was aspirated before drainage ceased. The patient has decompensated alcoholic cirrhosis. His ascites showed high SAAG, low protein, consistent with primary liver etiology of his ascites. There was no SBP on admission large volume tap, done with SPA. The duodenal ulcer is noted (H.pylori-negative). He allegedly stopped his EtOH abuse on 07/25/17. He has known RT proctitis, post XRT for prostate Ca. The hx of colon adenoma & diverticulosis coli are noted. Regarding the low back pain, 03/23/17: *PSA < 0.00. His LIH was somewhat reducible and there was no bowel obstruction on CT. For numerous reasons, the patient's A/C tx remained on hold as per previous discussion with cardiology, regarding afib. The ARF is noted. Admission CT without hydronephrosis. ARF persisted despite holding Lasix, Aldactone & Benazepril in mid-09/2017. Uncertain if ATN > pre-renal vs. HRS. If ATN, would expect Justus > 10 & FENa > 1.0. If pre-renal vs. HRS, would expect Justus < 10 & FENa < 1.0. 10/22/17: U/A- cloudy, orange, 1.025, 5.0, 1-3 RBC, 3-5 WBC, 15-25 hyaline casts , few bact, tr ket, + icto, 30+ protein, urobilinogen 1.0; pos nitrite, neg esterase. 10/23/17: WBC 14.9, H/H 8.5/25.9, MCV 956, RDW 15.6, PLT 109, BUN/Cr 50/1.6, GFR 42, Na 144, K 4.3, HCO3 21, AG 13, lactate 1.5. *As of 10/23/17, the patient remained hemodynamically stable and afebrile, with O2 sat RA 99%. Ascitic cultures remained negative, as expected (no SBP on admission large volume abdominal tap). BC x 2 remain negative. He had mild leukocytosis, with worsening anemia (? partially dilutional). GFR was slightly better, post SPA 25g IV Q8h. There was no overt GI bleeding, hematemesis, or melena, aside from the known RT proctitis. He received physical therapy & was on a 2g Na+ diet with fair po intake. He still c/o low back pain. He had no sx of cord compression. He was minimally icteric. He denied any confusion or pruritus. Canasa suppositories were added. Renal consult is pending. 10/24/17: *low Justus 6, FENa 0.0 (*c/w pre-renal vs. HRS). 10/24/17: WBC 13.6, H/H 8.5/25.4, MCV 95.6, RDW 16.2, PLT 126, BUN/Cr 52/2.0, GFR 32, Na 139, K 4.3 HCO3 24, AG 10 *As of 10/24/17, the patient remained with low nl BP 100/60, P 75, R 20, T 98.2 (without spike), O2 sat RA 97%. The patient was seen by Dr. Esteves, in renal consultation, 10/23/17. I discussed the case with him & the thughts then were pre-renal vs. HRS. 10/24/17: *Justus & FENA both low, consistent with either pre-renal vs. HRS, but inconsistent with ATN. He was continued on SPA 2g IVPB Q8h, although GFR slightly worsened. A decision was made to defer Midodrine and/or Octreotide for now. The patient is still awaiting imaging studies of his back, as per the medical team. BC & ascitic cultures were negative. He remained on Canasa supp 1g pr Qhs for his RT proctitis & Omeprazle 40 mg po BID for his large clean-based DU. Zofran was rxd p.r.n. for Dilaudid-induced nausea, but not yet needed. The patient became very agitated & awaoke from sleep early on 10/24/17, pulling out his IV. His last dose of Dilaudid was > 10 hrs prior, & so was probably unrelated to this (? ). He had a normal NH3 on admission. He was A & O x 3 at present & denied any focal neurologic symptoms. He denied any CP, SOB, abdominal pain, overt GI bleeding (aside from RT proctitis-> better post Canasa supp), hematemesis, or melena. He remained with low back pain and ambulated with a rolling walker at PT. The patient was evaluated 10/24/17 in the presence of his , Blossom, & his daughter, Regi. *The case was discussed with them in detail, including probable HRS. SUGGEST: 2g Na+ diet. Gentle IVF, but limit IV NS, which will exacerbate ascites. Strict I/O's. Close follow-up of lytes/GFR. *Continue IV SPA 25g Q8h for now. *Will defer to renal regarding possible treatment with Midodrine and/or Octreotide for presumed HRS. *Continue Omeprazole 40 mg po BID. *No ASA or NSAIDS. Limit Tylenol to < 2 g daily. Avoid hepatotoxins. Panculture. *As no SBP, agree with holding further Ceftriaxone & Flagyl for now.*Advise repeat EGD by the end of , to reassess the huge duodenal bulb ulcer, and if it persists, will need direct biopsies and possible EUS (doubt pancreatic lesion accounting for the large DU; none seen on non-IV contrast CT). *Continue Canasa suppositories 1g pr Qhs. Workup of low back pain per medical team (*nl PSA as above- *consider checking SPEP/IPEP, non-contrast MRI vs. CT LS spine and/or bone scan). Analgesics per medical team, keeping in mind cirrhosis & renal insufficiency. * Consideration for Ultram, dosing not to exceed 50 mg po BID as needed, with underlying cirrhosis, if okay with renal. Continue physical tx t mobilize patient. DVT prophylaxis with mechanical ALPS. [*Lasix 40 mg daily, Aldactone 50 mg daily, & Benazepril 40 mg daily ALL remain on HOLD]. I advised an annual flu shot, which the patient had refused. Advise Pneumovax, if never obtained. Advise semi-elective vaccination against both Hepatitis A and B. Advise repeat AFP and RUQ sono every 6 months for HCC surveillance, next due in 01/2018. One might consider follow-up surveillance colonoscopy in 08/2019, regarding his colon adenomas, but the overall risk:benefit ratio will have to be taken into account at that point, keeping in mind his advanced age and numerous comorbidities. The patient and his , Blossom, were previously made aware of the severe nature of the patient's illness due to his underlying EtOH cirrhosis. Because of his advanced age and recent alcohol abuse, he did not appear to be a candidate for liver transplant. He has no varices and therefore, Toprol does not have to be switched to a non-selective beta paul. Zofran as needed (dry heaves post Dilaudid). *Agree with no further A/C tx re: hx PAF, with large DU, history of radiation proctitis, past history of lower GI bleeding, etc., as per previous discussion with cardiology. The patient and his family accept the risk of CVA off A/C tx. The above was previously discussed with Dr. Jamie Salomon & again with the medical housestaff. I also spoke with the patent & his , Kenya, & his son, Alvin, at the bedside, 10/23/17, and with his daughter, Regi, on 10/24/17, in great detail. Confusion overnight may have been from - would recheck NH3, LFTs, & INR today. The patient refuses STR. Continuing care will need to be involved. Further GI recommendations to follow, depending on clinical course. Problem List: 1. Cirrhosis 2. Ascites 3. Duodenal ulcer 4. Alcohol abuse 5. Radiation proctitis 6. History of adenomatous polyp of colon 7. Diverticula of colon 8. Low back pain 9. Left inguinal hernia 10. History of prostate cancer 11. ARF (acute renal failure) 12. Afib Subjective Subjective: 10/24/17: *low Justus 6, FENa 0.0 (*c/w pre-renal vs. HRS). 10/24/17: WBC 13.6, H/H 8.5/25.4, MCV 95.6, RDW 16.2, PLT 126, BUN/Cr 52/2.0, GFR 32, Na 139, K 4.3 HCO3 24, AG 10 *As of 10/24/17, the patient remained with low nl BP 100/60, P 75, R 20, T 98.2 (without spike), O2 sat RA 97%. The patient was seen by Dr. Esteves, in renal consultation, 10/23/17. I discussed the case with him & the thughts then were pre-renal vs. HRS. 10/24/17: *Justus & FENA both low, consistent with either pre-renal vs. HRS, but inconsistent with ATN. He was continued on SPA 2g IVPB Q8h, although GFR slightly worsened. A decision was made to defer Midodrine and/or Octreotide for now. The patient is still awaiting imaging studies of his back, as per the medical team. BC & ascitic cultures were negative. He remained on Canasa supp 1g pr Qhs for his RT proctitis & Omeprazle 40 mg po BID for his large clean-based DU. Zofran was rxd p.r.n. for Dilaudid-induced nausea, but not yet needed. The patient became very agitated & awaoke from sleep early on 10/24/17, pulling out his IV. His last dose of Dilaudid was > 10 hrs prior, & so was probably unrelated to this (?). He had a normal NH3 on admission. He was A & O x 3 at present & denied any focal neurologic symptoms. He denied any CP, SOB, abdominal pain, overt GI bleeding (aside from RT proctitis-> better post Canasa supp), hematemesis, or melena. He remained with low back pain and ambulated with a rolling walker at PT. The patient was evaluated 10/24/17 in the presence of his , Blossom, & his daughter, Regi. * The case was discussed with them in detail, including probable HRS. Review of Systems: Full 14 point ROS otherwise N/C, and as above. Review of Systems Constitutional: Reports: weakness, unexplained weight loss (partially from abd taps & diuretics) . Denies: chills, diaphoresis, fever, malaise. EENTM: Reports: icterus. Denies: blurred vision, double vision, visual changes, eye pain, eye drainage, eye tearing, ear discharge, ear pain, ear redness, hearing changes, nasal congestion, epistaxis, nasal pain, throat pain, throat swelling, mouth pain, tooth pain. Cardiovascular: Reports: peripheral edema. Denies: chest pain, edema, orthopena, palpitations, syncope. Respiratory: Denies: cough, hemoptysis, orthopnea, short of breath, sputum production, stridor, wheezing. GI: Reports: bloody stool (RT proctitis)-> better post Canasa supp. Denies: abdominal pain, bloating, constipation, diarrhea, distention, bowel incontinence, melena, nausea, changes in stool, vomiting, steatorrhea. Genitourinary: Denies: discharge, dysuria, frequency, hematuria, hesitation, nocturia, pain, urgency. Musculoskeletal: Reports: low back pain. Denies: gout, joint pain, joint swelling, muscle pain, muscle stiffness, neck pain. Skin: Denies: cysts, change in skin color, change in hair/nails, dryness, erythema, jaundice, lesions, lymphangitis, lumps, moles, rash. Neurological/Psychological: Denies: anxiety, ataxia, cognitive dysfunction, confusion, depressed, dementia, emotional problems, headache, numbness, paresthesia, pre-existing deficit, petit mal seizures, tingling, tremors, tonic-clonic seizures, unable to move lower ext , unable to move upper ext, weakness, other. Hematologic/Endocrine: Denies: bruising, bleeding, polyuria, polydipsia. Immunologic/Allergic: Denies: see HPI, splenectomy, HIV/AIDS, lymphadenopathy. All Other Systems: Reviewed and Negative Objective Vital Signs and I&Os Vital Signs Date Time Temp Pulse Resp B/P B/P Pulse O2 O2 Flow FiO2 Mean Ox Delivery Rate 10/24 0908 100/60 10/24 0656 98.2 75 20 100/60 97 10/23 2201 98.0 68 19 100/60 97 Room Air 10/23 1438 97.9 65 20 98/58 97 Room Air Intake & Output 10/24 1600 10/24 0400 10/23 1600 10/23 0400 10/22 1600 10/22 0400 Intake Total 813 423 5337 200 Output Total 200 250 120 150 Balance 20 200 1390 50 Intake, IV 100 100 100 200 Intake, Oral 792 402 3018 Number 0 Bowel Movements Output, Urine 200 250 120 150 Patient 176 lb 210 lb Weight Weight Bed scale Estimated Measurement Method Physical Exam: Well-developed, chronically ill appearing, somewhat malnourished, elderly male, with some muscle wasting, in no apparent distress. Sclera mildly icteric. Conjunctiva pink. Oropharynx clear. Poor dentition. No oral thrush. No aphthous ulcers. There is no adenopathy, thyromegaly, or JVD. No peripheral stigmata of inflammatory bowel disease on exam. Scant gynecomastia B/L, without masses or D /C, faint spider anterior chest wall, & scant ascites (post abd tap). No CVA tenderness. No definite point spine tenderness. Dextroscoliosis lower L-spine. Deformed right clavicle, post old fx. Lungs: clear to A&P, with slight decreased BS at the bases B/L. No wheezing, rales, or rhonchi. Heart exam: irregularly irregular rate rhythm, S1 and S2, with I/ systolic murmur. Abdominal exam: normal bowel sounds, softer belly (post tap), nontender, without guarding or rebound. Large partially reducible non-tender left scrotal mass/LIH, otherwise, no mass. Liver approximately 9 cm by percussion. No splenomegaly. Negative Devine sign.*Mild fluid fluid shift (post tap). No pulsatile mass. No epigastric bruit. Digital rectal exam: deferred by patient. [Previous digital rectal exam 09/04/16: light brown stool, OB-negative, without fresh blood, normal sphincter tone, smooth mildly enlarged prostate without nodule, no mass, no external hemorrhoid or fissure (rectal exam was also done at the 09/10/16: colonoscopy)]. Extremities: without cyanosis or clubbing. < 1+ pedal edema of the LE B/L. Right knee scar. No palpable cords. + DJD. No rash. Distal pulses 1+ bilaterally. DTRs 1+ bilaterally. No palmar erythema. No Dupuytren's contractures. Alert and oriented x 3. Scant tremor. No asterixis. No definite signs of cord compression on limited neurologic exam. Motor 4/5 B/L. Current Medications: Current Medications Sig/Quinton Start time Last Medication Dose Route Stop Time Status Admin Acetaminophen 650 MG .STK-MED ONE 10/23 2000 DC PO 10/23 2001 Acetaminophen 650 MG Q8P PRN 10/22 1545 AC 10/23 PO 2030 Albumin Human 25 GM Q8 10/22 2200 AC 10/24 IV 0609 Hydromorphone HCl 0.5 MG Q8P PRN 10/22 1600 AC 10/24 IV 1134 Mesalamine 1,000 MG AT BEDTIME 10/22 2200 AC NV Metoprolol Succinate 50 MG DAILY 10/22 1606 AC 10/24 PO 0908 Omeprazole 40 MG BID 10/23 2200 AC 10/24 PO 0908 Ondansetron HCl 4 MG Q6P PRN 10/22 1600 AC IV Pantoprazole Sodium 40 MG DAILY 10/22 1606 DC 10/23 IV 1003 Results Pertinent Lab Results: Laboratory Tests 10/24 10/24 0737 0200 Chemistry Sodium (137 - 145 mmol/L) 139 Potassium (3.5 - 5.1 mmol/L) 4.3 Chloride (98 - 107 mmol/L) 105 Carbon Dioxide (22 - 30 mmol/L) 24 Anion Gap (5 - 16) 10 BUN (9 - 20 mg/dL) 52 H Creatinine (0.7 - 1.2 mg/dL) 2.0 H Estimated GFR (>60 ml/min) 32 L BUN/Creatinine Ratio (7 - 25 %) 26.0 H Hematology CBC w Diff NO MAN DIFF REQ WBC (4.8 - 10.8 /CUMM) 13.6 H RBC (4.70 - 6.10 /CUMM) 2.66 L Hgb (14.0 - 18.0 G/DL) 8.5 L Hct (42 - 52 %) 25.4 L MCV (80.0 - 94.0 FL) 95.6 H MCH (27.0 - 31.0 PG) 31.9 H RDW (11.5 - 14.5 %) 16.2 H Plt Count (130 - 400 /CUMM) 126 L MPV (7.4 - 10.4 FL) 9.3 Gran % (42.2 - 75.2 %) 79.1 H Lymphocytes % (20.5 - 51.1 %) 10.1 L Monocytes % (1.7 - 9.3 %) 9.7 H Eosinophils % (0 - 5 %) 0.9 Basophils % (0.0 - 2.0 %) 0.2 Absolute Granulocytes (1.4 - 6.5 /CUMM) 10.7 H Absolute Lymphocytes (1.2 - 3.4 /CUMM) 1.4 Absolute Monocytes (0.10 - 0.60 /CUMM) 1.3 H Absolute Eosinophils (0.0 - 0.7 /CUMM) 0.1 Absolute Basophils (0.0 - 0.2 /CUMM) 0 PUBS MCHC (33.0 - 37.0 G/DL) 33.4 Urines Urinalysis LIGHT H Urine Color (YEL,AMB,STR) ORANG H Urine Clarity (CLEAR) CLEAR Urine pH (5.0 - 8.0) 5.0 Ur Specific Roma (1.001 - 1.035) >= 1.030 Urine Protein (NEG,<30 MG/DL) 30 H Urine Ketones (NEG) TRACE H Urine Nitrite (NEG) POS H Urine Bilirubin (NEG) NEG@ICTO Urine Urobilinogen (0.1 - 1.0 EU/dl) 1.0 Ur Leukocyte Esterase (NEG) NEG Ur Microscopic SEDIMENT EXAMINED Urine RBC (0 - 5 /HPF) RARE Ur Epithelial Cells (NONE,FEW) RARE Urine Bacteria (NEG/NONE) FEW H Hyaline Casts (0/LPF) FEW H Urine Hemoglobin (NEG) NEG Urine Glucose (N MG/DL) NEG 10/24 10/23 0200 0725 Chemistry Sodium (137 - 145 mmol/L) 144 Potassium (3.5 - 5.1 mmol/L) 4.3 Chloride (98 - 107 mmol/L) 110 H Carbon Dioxide (22 - 30 mmol/L) 21 L Anion Gap (5 - 16) 13 BUN (9 - 20 mg/dL) 50 H Creatinine (0.7 - 1.2 mg/dL) 1.6 H Estimated GFR (>60 ml/min) 42 L BUN/Creatinine Ratio (7 - 25 %) 31.3 H Lactic Acid (0.7 - 2.1 mmol/L) 1.5 Hematology CBC w Diff NO MAN DIFF REQ WBC (4.8 - 10.8 /CUMM) 14.9 H RBC (4.70 - 6.10 /CUMM) 2.71 L Hgb (14.0 - 18.0 G/DL) 8.5 L Hct (42 - 52 %) 25.9 L MCV (80.0 - 94.0 FL) 95.6 H MCH (27.0 - 31.0 PG) 31.4 H RDW (11.5 - 14.5 %) 15.6 H Plt Count (130 - 400 /CUMM) 109 L MPV (7.4 - 10.4 FL) 10.0 Gran % (42.2 - 75.2 %) 82.5 H Lymphocytes % (20.5 - 51.1 %) 8.6 L Monocytes % (1.7 - 9.3 %) 8.5 Eosinophils % (0 - 5 %) 0.2 Basophils % (0.0 - 2.0 %) 0.2 Absolute Granulocytes (1.4 - 6.5 /CUMM) 12.3 H Absolute Lymphocytes (1.2 - 3.4 /CUMM) 1.3 Absolute Monocytes (0.10 - 0.60 /CUMM) 1.3 H Absolute Eosinophils (0.0 - 0.7 /CUMM) 0 Absolute Basophils (0.0 - 0.2 /CUMM) 0 PUBS MCHC (33.0 - 37.0 G/DL) 32.9 L Urines Ur Random Creatinine (mg/dL) 263.4 Ur Random Sodium (30 - 90 mmol/L) 6 L Ur Random Potassium (mmol/L) 53.4 Fraction Sodium Excret (<1% %) 0.0 10/22 10/22 10/22 10/22 2100 1903 1402 1200 Chemistry Lactic Acid (0.7 - 2.1 mmol/L) 2.3 H 3.1 H Hematology Lymphocytes (%) 14 % Normal PMNs (%) 1 Misc Hematology Test (%) 85 Other Body Source Fluid WBC (0 - 5 /CUMM) 22 H Fld Total RBCs Counted (0 /CUMM) 11 H Urines Urine Color (YEL,AMB,STR) ORANG H Urine Clarity (CLEAR) CLDY H Urine pH (5.0 - 8.0) 5.0 Ur Specific Roma (1.001 - 1.035) 1.025 Urine Protein (NEG,<30 MG/DL) 30 H Urine Ketones (NEG) TRACE H Urine Nitrite (NEG) POS H Urine Bilirubin (NEG) POS@ICTO H Urine Urobilinogen (0.1 - 1.0 EU/dl) 1.0 Ur Leukocyte Esterase (NEG) NEG Ur Microscopic SEDIMENT EXAMINED Urine RBC (0 - 5 /HPF) 1-3 Urine WBC (0 - 2 /HPF) 3-5 H Urine Bacteria (NEG/NONE) FEW H Hyaline Casts (0/LPF) 15-25 H Urine Hemoglobin (NEG) NEG Urine Glucose (N MG/DL) NEG 10/22 10/22 10/22 1149 0930 0917 Chemistry Sodium (137 - 145 mmol/L) 141 Potassium (3.5 - 5.1 mmol/L) 4.6 Chloride (98 - 107 mmol/L) 108 H Carbon Dioxide (22 - 30 mmol/L) 23 Anion Gap (5 - 16) 11 BUN (9 - 20 mg/dL) 46 H Creatinine (0.7 - 1.2 mg/dL) 1.8 H Estimated GFR (>60 ml/min) 36 L BUN/Creatinine Ratio (7 - 25 %) 25.6 H Glucose (65 - 99 mg/dL) 147 H Lactic Acid (0.7 - 2.1 mmol/L) 3.6 H Calcium (8.4 - 10.2 mg/dL) 9.1 Total Bilirubin (0.2 - 1.3 mg/dL) 2.8 H Direct Bilirubin (< 0.4 mg/dL) 0.8 H AST (17 - 59 U/L) 45 ALT (21 - 72 U/L) 29 Alkaline Phosphatase (< 127 U/L) 114 Ammonia (9 - 30 umol/L) 14 Troponin I (<0.11 ng/ml) < 0.01 Total Protein (6.3 - 8.2 g/dL) 6.4 Albumin (3.5 - 5.0 g/dL) 2.7 L Globulin (1.9 - 4.2 gm/dL) 3.7 Albumin/Globulin Ratio (1.1 - 2.2 %) 0.7 L Coagulation PT (9.4 - 12.5 SEC) 13.9 H INR (0.90 - 1.17) 1.33 H APTT (25 - 37 SEC) 37 Hematology CBC w Diff NO MAN DIFF REQ WBC (4.8 - 10.8 /CUMM) 13.1 H RBC (4.70 - 6.10 /CUMM) 3.29 L Hgb (14.0 - 18.0 G/DL) 10.4 L Hct (42 - 52 %) 31.0 L MCV (80.0 - 94.0 FL) 94.2 H MCH (27.0 - 31.0 PG) 31.6 H RDW (11.5 - 14.5 %) 15.5 H Plt Count (130 - 400 /CUMM) 170 MPV (7.4 - 10.4 FL) 8.7 Gran % (42.2 - 75.2 %) 82.6 H Lymphocytes % (20.5 - 51.1 %) 5.9 L Monocytes % (1.7 - 9.3 %) 10.4 H Eosinophils % (0 - 5 %) 0.1 Basophils % (0.0 - 2.0 %) 1.0 Absolute Granulocytes (1.4 - 6.5 /CUMM) 10.8 H Absolute Lymphocytes (1.2 - 3.4 /CUMM) 0.8 L Absolute Monocytes (0.10 - 0.60 /CUMM) 1.4 H Absolute Eosinophils (0.0 - 0.7 /CUMM) 0 Absolute Basophils (0.0 - 0.2 /CUMM) 0.1 PUBS MCHC (33.0 - 37.0 G/DL) 33.5 Other Body Source Fluid Total Protein (g/dL) < 2.0 Fluid Albumin (g/dL) < 1.0 10/22 0848 Urines Urine Color Cancelled Urine Clarity Cancelled Urine pH Cancelled Ur Specific Roma Cancelled Urine Protein Cancelled Urine Ketones Cancelled Urine Nitrite Cancelled Urine Bilirubin Cancelled Urine Urobilinogen Cancelled Ur Leukocyte Esterase Cancelled Ur Microscopic Cancelled Urine Hemoglobin Cancelled Urine Glucose Cancelled Imaging/Other Studies: 10/22/17: EKG- afib @ 94, low voltage throughout, borderline diffuse T wave abnormalities throughout, borderline prolonged QT interval. 10/22/17: CT ABDOMEN AND PELVIS WITHOUT IV CONTRAST (low GFR)- There is a large volume of intra-abdominal and intrapelvic ascites, extending into a sizable left inguinal hernia; the hernia also contains fat & a loop of nondistended sigmoid colon. No bowel obstruction. Few colonic diverticula without diverticulitis. The liver is shrunken and nodular, compatible with the history of cirrhosis. No obvious HCC or pancreatic lesion (within the limits of a non-IV contrast study). Normal GB. No ductal dilatation. Calcified aorta without AAA. Fibrotic changes at lung bases peripherally. No infiltrate. Coronary artery calcification. No retroperitoneal bleed. Lower lumbar dextroscoliosis. 10/22/17: XR PORTABLE CHEST- 1. No evidence of acute pulmonary process on this limited examination. Chronic right clavicular fracture. 2. Chronic appearing changes of the lungs, better described on the recent chest CT from 07/21/2017 suggesting chronic lung disease. 10/22/17: US-PARACENTESIS (by IR)- 7.5 L of clear yellow fluid was aspirated before drainage ceased.
[2017-10-24 14:54] VITALS: BP 116/70
--- NOTE | 2017-10-24 18:08 | CT SCAN REPORT ---
EXAMINATION: CT LUMBAR SPINE WITHOUT CONTRAST CLINICAL INFORMATION: Rule out compression fracture/cancer metastases. COMPARISON: CT of the abdomen and pelvis 10/22/2017. TECHNIQUE: Helical non-contrast CT images were obtained through the lumbar spine and 1.25 and 2.5 mm axial reconstructions were reviewed along with sagittal and coronal MPRs. DLP: 978 mGy-cm FINDINGS: There is mild dextroscoliotic curvature in the lumbar spine. There is no significant listhesis in the sagittal plane. No vertebral body compression fracture is seen. There is no destructive process to suggest lytic metastasis. No sclerotic lesions are seen. There is intervertebral disc height loss at L3-L4 and L4-L5 with associated vacuum discs. There is severe disc height loss at L5-S1 with advanced degenerative endplate and bone marrow changes. There is endplate sclerosis at L3-L4 and L4-L5 which are asymmetrically more advanced on the left side along the inner margin of the spondylotic curvature. Prominent left lateral osteophytes are also noted. There is partially visualized moderate ascites. There are atheromatous changes within the abdominal aorta without aneurysm. The common iliac arteries are ectatic. SPINAL LEVELS: L1-L2: Mild disc bulging. No spinal canal or neural foraminal stenosis. L2-L3: Disc bulging with posterior osseous ridging and posterior annular calcification and mild facet arthropathy resulting in mild left more than right neural foraminal stenosis but no spinal canal stenosis. L3-L4: Posterior disc osteophyte complex and mild bilateral facet arthropathy with ligamentum flavum infolding results in mild spinal canal stenosis with bilateral subarticular zone stenosis and mild right and mild to moderate left neural foraminal stenosis. L4-L5: Posterior disc osteophyte complex with superimposed central disc extrusion with superior migration in combination with moderate to severe facet arthropathy and ligamentum flavum infolding results in approximately mild to moderate spinal canal stenosis with probable subarticular zone stenosis. There is mild bilateral neural foraminal stenosis more advanced on the left. L5-S1: Prominent posterior disc osteophyte complex with superimposed right subarticular extrusion causing probable mass effect on the descending right S1 nerve root but no significant spinal canal stenosis. There is moderate bilateral facet arthropathy. There is moderate bilateral neural foraminal stenosis with mass effect on the foraminal segments of the bilateral L5 nerve roots. IMPRESSION: 1. No lumbar spine fracture, traumatic malalignment, or destructive process. 2. Multilevel degenerative spondylotic changes resulting in varying degrees of spinal canal and neural foraminal stenosis as detailed above. 3. Moderate ascites partially seen.
[2017-10-24 21:55] VITALS: BP 118/84
[2017-10-25 06:48] VITALS: BP 114/74
[2017-10-25 08:56] LABS: ABSOLUTE BASOPHIL COUNT 0 /CUMM (0.0-0.2); ABSOLUTE EOSINOPHIL COUNT 0.1 /CUMM (0.0-0.7); ABSOLUTE GRANULOCYTE CT 12.5 /CUMM (1.4-6.5); ABSOLUTE LYMPH COUNT 1.1 /CUMM (1.2-3.4); ABSOLUTE MONOCYTE COUNT 1.9 /CUMM (0.10-0.60); BASOPHIL % 0.2 % (0.0-2.0); EOSINOPHIL % 0.3 % (0-5); GRANULOCYTE % 80.3 % (42.2-75.2); HEMATOCRIT 24.6 % (42-52); MEAN CORPUSCULAR HGB 32.2 PG (27.0-31.0); MEAN CORPUSCULAR HGB CONC 33.6 G/DL (33.0-37.0); MEAN CORPUSCULAR VOLUME 95.9 FL (80.0-94.0); MEAN PLATELET VOLUME 9.6 FL (7.4-10.4); PLATELET COUNT 122 /CUMM (130-400); RBC DISTRIBUTION WIDTH 15.6 % (11.5-14.5); RED BLOOD CELL CT 2.56 /CUMM (4.70-6.10); WHITE BLOOD CELL COUNT 15.6 /CUMM (4.8-10.8)
--- NOTE | 2017-10-25 10:52 | PN- Att Addend ---
Attending Addendum Attending Brief Note Patient seen and examined. He continues to complain of back pain. CT images were reviewed and he has multilevel spondylosis but no obvious cord compromise. He is an 82-year-old with history of A. fib not on anticoagulation due to high bleeding risk with cirrhosis and duodenal ulcer he is here with decompensated cirrhosis and on 10/22 he had a diagnostic and therapeutic tap done. 7.5 L was taken out and the fluid was negative for SBP. Because of Naila on CKD we held his diuretics and he was seen by renal who thinks this is hepatorenal syndrome. Right now his creatinine is stable in the 1.8-2 range and we have deferred midodrine and octreotide for now. Will need to follow closely as per renal's recommendations.
--- NOTE | 2017-10-25 11:11 | Event Note ---
Event Note Event Note: Had a long conversation with the patient's daughter and patient's . [employer] spoke to them as well. As per the family the patient does not want to live like this. He is in a lot of pain and the daughter works in clinical care and understands the overall prognosis. They want to make him comfort measures with a hospice evaluation. Patient wants the same. Explained at length the cirrhosis, bran and they understand. At this point will change his CODE STATUS to comfort measures. Stop the unnecessary medication. Increase the dose of Dilaudid and add Ativan for pain and he'll have a hospice evaluation in a.m.
--- NOTE | 2017-10-25 11:53 | PN- Housestaff ---
Subjective Follow-up For: ascites, cirrhosis JAIMIE weakness back pain weight loss Subjective: No overnighte event. Patient had difficulty hearing. Discussed with patient's daughter and for code status and prognosis in [facility] [place]. Review of Systems Constitutional: Reports: see HPI. Objective Last 24 Hrs of Vital Signs/I&O Vital Signs Date Time Temp Pulse Resp B/P B/P Pulse O2 O2 Flow FiO2 Mean Ox Delivery Rate 10/25 1135 93 84/40 10/25 0648 98.6 91 20 114/74 96 10/24 2155 99.1 85 19 118/84 96 Room Air 10/24 1454 98.8 68 18 116/70 100 Room Air Intake & Output 10/25 1600 10/25 0800 10/25 0000 Intake Total 350 450 Output Total Balance 350 450 Intake, IV 100 Intake, Oral 250 450 Physical Exam General Appearance: Alert, Oriented X3, Cooperative, No Acute Distress Current Medications: Current Medications Sig/Quinton Start time Last Medication Dose Route Stop Time Status Admin Acetaminophen 650 MG Q8P PRN 10/22 1545 AC 10/25 PO 0920 Albumin Human 25 GM Q8 10/22 2200 DC 10/25 IV 0519 Hydromorphone HCl 1 MG ONCE ONE 10/25 1130 DC 10/25 IV 10/25 1131 1136 Hydromorphone HCl 2 MG Q4 HRS NEEDED PRN 10/25 1115 AC IV Hydromorphone HCl 0.5 MG Q8P PRN 10/22 1600 DC 10/25 IV 0520 Lorazepam 0.5 MG Q4P PRN 10/25 1115 AC IV Mesalamine 1,000 MG AT BEDTIME 10/22 2200 AC NJ Metoprolol Succinate 50 MG DAILY 10/22 1606 AC 10/24 PO 0908 Omeprazole 40 MG BID 10/23 220 AC 10/25 PO 1135 Ondansetron HCl 4 MG Q6P PRN 10/22 1600 AC IV Last 24 Hrs of Lab/Natan Results Last 24 Hrs of Labs/Mics: Laboratory Tests 10/25/17 0755: Anion Gap 13, Estimated GFR 36 L, BUN/Creatinine Ratio 33.3 H, CBC w Diff NO MAN DIFF REQ, RBC 2.56 L, MCV 95.9 H, MCH 32.2 H, RDW 15.6 H, MPV 9.6, Gran % 80.3 H, Lymphocytes % 7.1 L, Monocytes % 12.1 H, Eosinophils % 0.3, Basophils % 0.2, Absolute Granulocytes 12.5 H, Absolute Lymphocytes 1.1 L, Absolute Monocytes 1.9 H, Absolute Eosinophils 0.1, Absolute Basophils 0, PUBS MCHC 33.6 Assessment/Plan Assessment: 82 yo man with a PMHx. of HTN ,HLD, borderline DM, paroxysmal A.fib not on AC 2/ 2 GI bleed, Hx. of prostate cancer, alcohol related cirrhosis with recent decompensation 2 months ago after presenting with ascites and undergoing paracentesis in the GI office presented to the emergency room with a complaints of severe back pain, weakness, and inability to get out of bed. Cirrhosis with ascites: - After discussion with Patient's family member, an agreement of comfort measure was made and pending hospice consult in the next AM. Diagnostic and therapeutic paracentesis performed 7.5 L of fluid removed Ascitic fluid analysis no evidence of spontaneous bacterial peritonitis Monitor off antibiotics Gastroenterology consultation 25% albumin Q8H lactic acid 1.5 on latest lab Avoid NSAIDs, duodenal ulcer on EGD, negative for varices Limit tylenol Follow up GI recommendations History off rectal bleeding, radiation proctitis, and duodenoal ulcer Off anticoagulation for atrial fibrillation for the above reasons, increased stroke risk Last alcohol intake 07/25/17 JAIMIE: Continue to hold furosemide, ACEi, and spironolactone Nephrology consulted, follow up their recommendations Trial of albumin 25g IV Q8H Avoid NSAIDs, nephrotoxic agents FENa close to 0 on latest urine lab UA +ve nitrites -ve LE unchanged from last UA. Atrial fibrillation: Continue metoprolol No anticoagulation Weakness: Physical therapy evaluation Heart healthy diet-2gram sodium restriction DVT ppx-lovenox 40mg subcutaneous daily DNR/DNI Problem List: 1. Hepatorenal syndrome Pain Ratin Pain Location: Back/Knees Pain Goal: Pain 7 or less Pain Plan: see AP Tomorrow's Labs & Rationales: NA
--- NOTE | 2017-10-25 14:49 | Event Note ---
Event Note Event Note: I spoke to Dr. Jamie Salomon a short while ago. She spoke with the patient, his , & his daughter, Regi. Their consensus was that the patient would be made comfort care & therefore neither Octreotide or Midodrine will be instituted for presumed HRS. Further GI follow-up as needed.
[2017-10-25 22:14] VITALS: BP 90/50
--- NOTE | 2017-10-26 06:58 | PN- Housestaff ---
Scott SINGH,[facility] 10/26/17 0657: Subjective Follow-up For: Hepatorenal syndrome Subjective: The patient himself this does not stay any complaints. States she is not in any pain. However I saw him with his daughter today who stated that the patient is wincing in pain. Review of Systems Constitutional: Reports: no symptoms. Comments: The patient himself is not completely oriented and alert to answering questions. He is unable to fully respond to review of systems questions. Objective Last 24 Hrs of Vital Signs/I&O Vital Signs Date Time Temp Pulse Resp B/P B/P Pulse O2 O2 Flow FiO2 Mean Ox Delivery Rate 10/26 0903 84/40 10/26 0700 99.8 82 10 80/46 91 Room Air 10/25 2214 98.4 95 22 90/50 94 Intake & Output 10/26 1600 10/26 0800 10/26 0000 Intake Total 120 Output Total 25 100 Balance -25 20 Intake, IV 20 Intake, Oral 100 Output, Urine 25 100 Physical Exam General Appearance: Alert, Cooperative, Mild Distress Cardiovascular: irregularly irregular heartbeat Lungs: Clear to Auscultation, Normal Air Movement, anterior exam due to patient cooperation Abdomen: Normal Bowel Sounds, Soft, No Tenderness Vascular: 1+ radial pulses Current Medications: Current Medications Sig/Quinton Start time Last Medication Dose Route Stop Time Status Admin Acetaminophen 650 MG Q8P PRN 10/22 1545 DCD 10/25 PO 0920 Hydromorphone HCl 2 MG Q4 HRS NEEDED PRN 10/25 1115 DCD 10/26 IV 1402 Lorazepam 0.5 MG Q4P PRN 10/25 1115 DCD 10/25 IV 2135 Mesalamine 1,000 MG AT BEDTIME 10/22 2200 DCD TX Metoprolol Succinate 50 MG DAILY 10/22 1606 DCD 10/24 PO 0908 Omeprazole 40 MG BID 10/23 2200 DCD 10/25 PO 2136 Ondansetron HCl 4 MG Q6P PRN 10/22 1600 DCD IV Assessment/Plan Assessment: 82 yo man with a PMHx. of HTN ,HLD, borderline DM, paroxysmal A.fib not on AC 2/ 2 GI bleed, Hx. of prostate cancer, alcohol related cirrhosis with recent decompensation 2 months ago after presenting with ascites and undergoing paracentesis in the GI office presented to the emergency room with a complaints of severe back pain, weakness, and inability to get out of bed. Cirrhosis with ascites: The patient was made hospice by the hospice nurse today. Patient will be discharged to hospice service. Diagnostic and therapeutic paracentesis performed 7.5 L of fluid removed Ascitic fluid analysis no evidence of spontaneous bacterial peritonitis Monitor off antibiotics Gastroenterology consultation 25% albumin Q8H lactic acid 1.5 on latest lab Avoid NSAIDs, duodenal ulcer on EGD, negative for varices Limit tylenol Follow up GI recommendations History off rectal bleeding, radiation proctitis, and duodenoal ulcer Off anticoagulation for atrial fibrillation for the above reasons, increased stroke risk Last alcohol intake 07/25/17 JAIMIE: Continue to hold furosemide, ACEi, and spironolactone Nephrology consulted, follow up their recommendations Trial of albumin 25g IV Q8H Avoid NSAIDs, nephrotoxic agents FENa close to 0 on latest urine lab UA +ve nitrites -ve LE unchanged from last UA. Atrial fibrillation: Continue metoprolol No anticoagulation Weakness: Physical therapy evaluation Heart healthy diet-2gram sodium restriction DVT ppx-lovenox 40mg subcutaneous daily DNR/DNI Problem List: 1. Hepatorenal syndrome Pain Ratin Pain Location: None Pain Goal: Remain pain free Pain Plan: /Hospice Tomorrow's Labs & Rationales: None Cirilo Tejada 10/26/17 1354: Attending MD Review Statement Attending Statement Attending MD Statement: examined this patient, discuss w/resident/PA/DIRECTOR LONG TERM CARE, agreed w/resident/PA/DIRECTOR LONG TERM CARE, discussed with family, reviewed EMR data (avail), discussed with nursing, discussed with case mgmt, reviewed images, amended to note Attending Assessment/Plan: "He is an 82-year-old with history of A. fib not on anticoagulation due to high bleeding risk with cirrhosis and duodenal ulcer he is here with decompensated cirrhosis and on 10/22 he had a diagnostic and therapeutic tap done. 7.5 L was taken out and the fluid was negative for SBP. Because of Jaimie on CKD we held his diuretics and he was seen by renal who thinks this is hepatorenal syndrome. Right now his creatinine is stable in the 1.8-2 range and we have deferred midodrine and octreotide for now. " Patient seen/examined bedside, family bedside. Patient in comfort care. awaiting hospice eval. Patient/family decided for comfort care and pending hospice evaluation.
[2017-10-26 07:00] VITALS: BP 80/46
[2017-10-26 09:03] VITALS: BP 84/40
== END 2017-10-26 14:33 | disposition hospice, home (50) | DRG 432 ==
LOC: ERH 08:36 → 2NA 14:20 → ERHI 14:20 → ENRESERV 16:09 → ENTRNSPT 17:21 → EDTRNSPTSTS 17:32 → 2NB 17:41 → CMPTRNSPT 17:52 → 2NB 10-23 12:15 → 2NA 10-25 14:58
PROVIDERS: Physician Assistant Medical; Student in an Organized Health Care Education/Training Program
PROC: 0W9G3ZZ Drainage of Peritoneal Cavity, Percutaneous Approach (ICD-10-PCS; principal; 2017-10-22)
DX: K70.31 Alcoholic cirrhosis of liver with ascites (principal); K76.7 Hepatorenal syndrome; N17.9 Acute kidney failure, unspecified; E87.2 Acidosis; E46 Unspecified protein-calorie malnutrition; I48.0 Paroxysmal atrial fibrillation; K26.9 Duodenal ulcer, unspecified as acute or chronic, without hemorrhage or perforation; E78.5 Hyperlipidemia, unspecified; Z51.5 Encounter for palliative care; G89.29 Other chronic pain; H40.9 Unspecified glaucoma; F10.21 Alcohol dependence, in remission; I10 Essential (primary) hypertension; Z68.21 Body mass index [BMI] 21.0-21.9, adult; K21.9 Gastro-esophageal reflux disease without esophagitis; K62.7 Radiation proctitis; Y84.2 Radiological procedure and radiotherapy as the cause of abnormal reaction of the patient, or of later complication, without mention of misadventure at the time of the procedure; R26.89 Other abnormalities of gait and mobility; M54.5 Low back pain; Z87.891 Personal history of nicotine dependence; Z85.46 Personal history of malignant neoplasm of prostate
CPT/HCPCS: 2NAP; 2NBSP; 84133; 84300; 87075; 36415; 74176; 81001; 82436; 82570; 87040; 93005; 93010; 96361; 96374; 96375; 97110-GO; 97112-GO; 97116-GO; 97161-GP; 97530-GO; J0696; J1644; J2405; J3490; P9047

== ENCOUNTER 2017-10-26 14:33 | Inpatient (IN) | payer OTHER ==
[~2017-10-26 14:33] MED LIST: FUROSEMIDE40 M1 PO; METOPROLOL SUCC50 M2 PO; PANTOPRAZOLE SO40 M1 PO; SIMVASTATIN20 M2 PO; SPIRONOLACTONE50 M1 PO; XALATAN2.5 ML OPH
--- NOTE | 2017-10-26 14:45 | PN- Att Addend ---
Attending Addendum Attending Brief Note Patient being admitted to hospice care. Patient is lethargic and hypotensive. HPI - This is an 82-year-old male with a history of cirrhosis, A. fib not on anticoagulation due to bleeding risk, recently diagnosed large duodenal ulcer. He has had cirrhosis for a few months now and periodically gets large-volume paracentesis. He came in on this admission with severe back pain and decompensated cirrhosis. He had a therapeutic tap done with 7.5 L taken out that was negative for SBP. However he had hepatorenal syndrome and despite the diuretics being held his renal function was not improving. He had imaging done of his back which showed severe spondylosis and degenerative disease. Given his advanced cirrhosis and his renal function, the family made a decision knowing his explicit wishes to switch him to comfort measures. He is being admitted to hospice for comfort measures. On exam he is afebrile, blood pressure is low at 80/50, pulse is 88 and his breathing at 16-18. He is jaundiced, pale appearing, lungs have decreased breath sounds at the bases, heart is S1-S2 irregular and abdomen is distended with a fluid thrill and shifting dullness. He is too lethargic for me to appreciate any asterixis. As per his known explicit wishes we are admitting him to hospice. We will use Dilaudid [id number] and when necessary as per the hospice nurse, Ativan for anxiety, scopolamine patch for secretions and follow closely.
[2017-10-26 14:52] VITALS: BP 94/38
[2017-10-27 06:57] VITALS: BP 82/40
--- NOTE | 2017-10-27 10:24 | Discharge Summary ---
Hospital Course Allergies: Coded Allergies: NO KNOWN ALLERGIES (NONE 10/22/17)
--- NOTE | 2017-10-27 13:31 | PN- Hospice ---
Subjective Subjective: Pt. not currently responsive. He has received scheduled dilaudid and 1 as needed dose of dilaudid and ativan. He appears comfortable, at bedside. Review of Systems Constitutional: Reports: see HPI. Objective Last 24 Hrs of Vital Signs/I&O Vital Signs Date Time Temp Pulse Resp B/P B/P Pulse O2 O2 Flow FiO2 Mean Ox Delivery Rate 10/27 0657 98.1 110 6 82/40 95 Room Air 10/26 1452 98.4 105 22 94/38 95 Room Air Intake & Output 10/27 1600 10/27 0800 10/27 0000 Intake Total 120 Output Total Balance 120 Intake, Oral 120 Physical Exam General Appearance: no apparent distress, sedated Head: atraumatic Respiratory: unlabored, upper airway congestion noted Cardiovascular: irregularly irregular Extremities: edematous Current Medications: Current Medications Sig/Quinton Start time Last Medication Dose Route Stop Time Status Admin Acetaminophen 650 MG Q6P PRN / 1500 AC DE Bisacodyl 10 MG DAILY NEEDED PRN / 1500 AC DE Glycerin/Mineral Oil 1 NEYDA TID PRN / 1500 AC TOP Glycopyrrolate 200 MCG Q4 HRS NEEDED PRN 01/ 1500 AC 10/27 IV 0954 Hydromorphone HCl 2 MG Q4 / 1800 AC 10/27 IV 0943 Hydromorphone HCl 2 MG Q2 HRS NEEDED PRN 01/ 1500 AC / IV 1049 Lorazepam 1 MG Q2 HRS NEEDED PRN 01/ 1500 AC / IV 0953 Scopolamine HBr 1 PAT Q72H PRN / 1500 AC 10/27 TOP 0954 Assessment/Plan Assessment/Recommendations: 82 yo man with a PMHx. of HTN ,HLD, borderline DM, paroxysmal A.fib not on AC 2/ 2 GI bleed, Hx. of prostate cancer, alcohol related cirrhosis with decompensation, ascites and duodenal ulcer admitted to hospice care. Comfortable, continue dilaudid as ordered. Increase scopolamine for congestion to 2 patches, continue Robinul as needed. Problem List: 1. Cirrhosis 2. Ascites 3. Duodenal ulcer
--- NOTE | 2017-10-29 10:34 | Discharge Summary ---
Visit Information Visit Dates Admission Date: 10/26/17 Discharge Date: 10/27/17 Hospital Course Course Attending Physician: Umm SINGH,Tierra Mathew Primary Care Physician: Donnell Hay MD Hospital Course: 82 yo man with a PMHx. of HTN ,HLD, borderline DM, paroxysmal A.fib not on AC 2/ 2 GI bleed, Hx. of prostate cancer, alcohol related cirrhosis with decompensation, ascites and duodenal ulcer admitted to hospice care. He was kept comfortable with dilaudid and ativan until he peacefully. Allergies: Coded Allergies: NO KNOWN ALLERGIES (NONE 10/22/17) Disposition Summary Disposition Principal Diagnosis: Liver cirrhosis Ascites Additional Diagnosis: Duodenal ulcer Discharge Disposition: Discharge Instructions General Discharge Information Code Status: Hospice Patient's Diet: N/A Patient's Activity: N/A Follow-Up Instructions/Appts: N/A Copies To: Donnell Hay MD
== END 2017-10-27 21:10 | disposition expired | DRG 434 ==
LOC: 2NA 14:33
DX: K70.31 Alcoholic cirrhosis of liver with ascites (principal); I48.0 Paroxysmal atrial fibrillation; K26.9 Duodenal ulcer, unspecified as acute or chronic, without hemorrhage or perforation; Z66 Do not resuscitate; Z51.5 Encounter for palliative care; I10 Essential (primary) hypertension; E78.5 Hyperlipidemia, unspecified; R73.03 Prediabetes